=== PATIENT | female | born 1955 | race African-American/Black ===

== ENCOUNTER 2017-08-19 21:43 | Inpatient (IN) | payer SELFPAY ==
[2017-08-19] MEDS ORDERED: Nitroglycerin 2% Ointment 1 INCH/1 GM Packet ONE (22:03)
[2017-08-19] MEDS ORDERED: hydrALAZINE 20 MG/ML VIAL SLOW IVP PRN (23:47)
[2017-08-19] MEDS ORDERED: Milk Of Magnesia 30 ML UDCUP PO PRN (23:49)
[2017-08-20 02:57] VITALS: BMI 30.5
--- NOTE | 2017-08-20 04:50 | HP ---
PRIMARY CARE PHYSICIAN: Alex Francisco M.D. in [place]. PRESENTING COMPLAINT: Double vision and difficult to walk. HISTORY OF PRESENT ILLNESS: Ms. Claude Turcios is a 62-year-old female who has a past medical history of chronic lower back pain, hypertension, and hyperlipidemia. She reports that around 4:00 p.m. yester day, she started having difficulty seeing properly with her eyes straight into the right side. She a lso developed difficulty walking around. She denies any speech difficulty, facial droop or extremity weakness. She has not had similar episodes in the past. She did note presented to the emergency ro yesterday because she attributed her symptoms to being out in the heat and went and tried to cool down. However, due to continued symptoms and moderate difficulty moving around, today she decided to come to the emergency room. There is no history of fever, chills, cough, chest pain, shortness of b reath, palpitations, PND, orthopnea, lower extremity edema. She has no abdominal or urinary symptoms . She went to [facility], where she was found to have a blood pressure of 223/93. She wa s given 1 dose of aspirin and then sent to [facility] for further care. PAST MEDICAL HISTORY: As stated in the HPI. PAST SURGICAL HISTORY: Remote "feminine" surgery about 20 years ago, but does not remember what it w as called. FAMILY HISTORY: Reviewed and noncontributory. SOCIAL HISTORY: She drinks alcohol every week, but denies drug use. She also smokes half a pack a d ay. HOME MEDICATION: Include, amlodipine 10 mg daily and lisinopril 20 mg daily. ALLERGIES: No known drug allergies. CODE STATUS: FULL CODE. REVIEW OF SYSTEMS: All systems reviewed and negative except as stated in HPI. PHYSICAL EXAMINATION: VITAL SIGNS: On arrival, blood pressure was 203/105 with a pulse rate of 59, respiratory rate of 24, oxygen saturation of 99% on room air. GENERAL: Not in acute distress. She is lying comfortably. HEENT: Normocephalic, atraumatic, not pale, anicteric. PERRLA. Moist mucous membranes. NECK: Supple, full range of movement. No JVD. RESPIRATORY: Vesicular breath sounds bilaterally. No wheezes, rales or rhonchi. CARDIOVASCULAR: S1 and S2 only. No murmurs, rubs or gallops. Regular rate and rhythm. ABDOMEN: Soft, nontender, nondistended. Bowel sounds normoactive. MUSCULOSKELETAL: No edema. SKIN: Warm, dry, well-perfused. No rashes or lesions. PSYCHIATRIC: Normal mood and affect. Denies SI or HI. NEUROLOGIC: Strength 4/5 in all extremities. Normal tone and reflexes. Alert and well oriented to time, place and person. She has some right ocular muscle palsy and vertical nystagmus. LABORATORY DATA: CBC was largely unremarkable and CMP as well. Urinalysis was also unremarkable. S he had a brain CT without contrast and did have significant findings, ranging from peripheral hypoden sity along the right superior cerebellum posterior cerebellum suggestive of an old infarction. She a lso had extensive microvascular subcortical and deep white matter changes with associated demineraliz ation of the calvarium with numerous round lytic foci. Recommend correlation for history of myeloma. There is also hypodense foci of the thalami bilaterally, which are new from the comparison examinat ion and her age indeterminate. EKG shows no acute ischemic signs. ASSESSMENT AND PLAN: 1. Ischemic cerebrovascular accident: Patient presents with double vision, difficulty ambulating an d CT brain finding suggesting a new CVA. She has been admitted to the Stroke Unit, will be monitored on telemetry. We will also get a PT/OT evaluation and a bedside swallow evaluation as well. We avi l obtain lipid profile, hemoglobin A1c and TSH. We will allow for permissive hypertension and placed on IV labetalol, hydralazine for diastolic blood pressure greater than 120. She will also be placed on secondary prevention with aspirin and statin. Neurology will be consulted. 2. Hypertensive urgency: This is likely secondary to new cerebrovascular accident. MRI without con trast has been ordered. Further management as above. 3. Hyperlipidemia: We will place on stain. 4. Hypertension: Management as above. 5. Deep venous thrombosis prophylaxis, SCDs. 6. Code status: FULL CODE.
[2017-08-20 05:33] LABS: Anion Gap 13 mmol/L (10-20); BUN (Urea Nitrogen) 9 mg/dL (9.8-20.1); Calc. Creatinine Clearance 108 mL/min (70-130); Calcium 10.1 mg/dL (7.8-10.44); Carbon Dioxide 27 mmol/L (23-31); Cardiac Risk 4.7 (Less than 4.5); Chloride 106 mmol/L (98-107); Cholesterol 173 mg/dl (< 200 Desired); Estimated GFR-MDRD Greater than 90; Glucose 85 mg/dL (80-115); HDL Cholesterol 37 mg/dL (>60 Neg Risk); LDL Cholesterol, Calculated 118 mg/dL; Potassium 3.4 mmol/L (3.5-5.1); Sodium 143 mmol/L (136-145); Triglycerides 88 mg/dL (Less than 150)
[2017-08-20 05:42] LABS: #Lymphocytes 1.3 thou/uL (1.20-3.40); #Monocytes 0.4 thou/uL (0.11-0.59); #Neutrophils 2.2 thou/uL (1.40-6.50); %Basophils 0.6 % (0.0-1.0); %Eosinophils 1.2 % (0.0-10.0); %Lymphocytes 32.3 % (21.0-51.0); %Monocytes 10.8 % (0.0-10.0); Hemoglobin 11.7 g/dL (12.0-16.0); MDiff Complete? YES; Macrocytosis SLIGHT = 6-15 cells (100X) (0-5/hpf); Mean Corpuscular HGB CONC 34.1 g/dL (32.0-36.0); Mean Corpuscular Hemoglobin 37.9 pg (27.0-31.0); PLT Morphology Comment Appears Adequate; Platelet Count 185 thou/uL (130-400)
[2017-08-20] MEDS: Lisinopril 20 MG TAB PO SCH (08:55)
[2017-08-20] MEDS: Amlodipine 10 MG TAB PO SCH (08:55)
[2017-08-20] MEDS: Docusate 100 MG CAP PO SCH ×2 (08:55→22:04)
[2017-08-20] MEDS: Aspirin 325 mg Enteric Coated Tablet PO SCH (08:56)
--- NOTE | 2017-08-20 10:29 | RAD ---
SKELETAL BONE SURVEY: HISTORY: Lytic bony lesions. FINDINGS: Lateral view skull, lateral view cervical spine, AP view of cervical spine, AP and lateral views thor acic and lumbar spine, AP view pelvis, AP both right and left lower extremities and AP view bilateral upper extremities are obtained. Skeletal survey demonstrates numerous lytic lesions too numerous to count in the calvarium. Areas of lucency are also seen in the proximal right and left femur in the diaphysis. Lytic change is also s een in the mid and distal right humerus and mid portion of the left humerus. Findings compatible with numerous osseous metastatic lesions. No definite evidence of high-grade com pression fracture is seen. There does appear to be some height loss in the T12 vertebra, predominant ly centrally. Findings compatible with numerous lytic osseous lesions. POS: [facility]
--- NOTE | 2017-08-20 11:12 | MRI ---
NONCONTRAST ENHANCED MRI IMAGES OF THE BRAIN: HISTORY: Dizziness, right eye amblyopia, blurred vision that started Monday afternoon. FINDINGS: Multiplanar, multisequence noncontrast-enhanced MRI images of brain obtained. Images demonstrate small areas of diffusion restriction seen in the left basal ganglion and left post erior temporal lobe compatible with left small MCA distribution areas of acute stroke. These areas a re associated with areas of T2 signal abnormality. Old areas of signal changes seen in the right and left thalami and the preethi compatible with areas of gliosis from old ischemic events. There is an old right cerebellar area of infarction. Also, there is an approximately 12 mm arachnoid cyst in the left middle cranial fossa. IMPRESSION: 1. Small acute left middle cerebral artery distribution areas of strokes. 2. No evidence of acute intracranial pathology noted otherwise. No evidence of large stroke seen. Older partial areas of strokes also seen. POS: [facility]
[2017-08-20 11:47] LABS: Hemoglobin 11.9 g/dL (12.0-16.0); Mean Corpuscular HGB CONC 34.6 g/dL (32.0-36.0); Mean Corpuscular Hemoglobin 38.3 pg (27.0-31.0); Mean Platelet Volume 6.9 fL (7.4-10.4); Platelet Count 178 thou/uL (130-400); RBC Distribution Width 11.9 % (11.5-14.5)
[2017-08-20 12:09] LABS: Band 3 % (5-11); Eosinophils 1 % (0-10); Lymphocytes 34 % (21-51); MDiff Complete? YES; Macrocytosis SLIGHT = 6-15 cells (100X) (0-5/hpf); Monocytes 9 % (0-10); Neutrophil 53 % (42-75); Nucleated RBC 1 % (0); PLT Morphology Comment Appears Adequate; Polychromasia SLIGHT = 2-3 cells (100X) (0-2/hpf)
--- NOTE | 2017-08-20 12:11 | PDOC.PN ---
- Subjective Encounter Start Date: 08/20/17 Encounter Start Time: 07:40 Pt seen for followup re: diplopia. Denies chest pain or shortness of breath. - Objective Resuscitation Status: Resuscitation Status FULL:Full Resuscitation MAR Reviewed: Yes Vital Signs & Weight: Vital Signs (12 hours) Temp Pulse Resp BP Pulse Ox 08/20/17 11:44 98.4 F 61 14 212/112 H 97 08/20/17 08:55 60 08/20/17 08:00 98.5 F 60 16 172/93 H 97 08/20/17 04:10 98.1 F 60 20 100 08/20/17 02:57 98.1 F 60 20 183/91 H 100 Weight Weight 201 lb Result Diagrams: 08/20/17 11:32 08/20/17 04:42 EKG Reviewed by me: Yes (Tele: NSR) Phys Exam - Physical Examination Obese HEENT: moist MMs, sclera anicteric, oral pharynx no lesions, 2+ tonsils proptosis balbir Neck: no nodes, no JVD, supple, full ROM Respiratory: no wheezing, no rales, no rhonchi, clear to auscultation bilateral Cardiovascular: RRR, no rub S1, S2 Gastrointestinal: soft, non-tender, no distention, positive bowel sounds Neurological: moves all 4 limbs R eye ophthalmoplegia Psychiatric: normal affect, A&O x 3 Dx/Plan (1) Ischemic cerebrovascular accident (CVA) Code(s): I63.9 - CEREBRAL INFARCTION, UNSPECIFIED Status: Acute Comment: await further workup including MRI brain, echo and carotid dopplers. (2) Osteolytic lesion Code(s): M89.50 - OSTEOLYSIS, UNSPECIFIED SITE Status: Acute Comment: check SPEP, UPEP, skeletal survery and mammogram. (3) Hypertensive urgency Code(s): I16.0 - HYPERTENSIVE URGENCY Status: Acute (4) Tobacco abuse Code(s): Z72.0 - TOBACCO USE Status: Chronic Comment: counseled re: tobacco cessation, start nicotine replacement therapy - Plan * . Review of Systems - Review of Systems Constitutional: negative: fever, chills, sweats, weakness, malaise Eyes: Vision Change. negative: Pain, Conjunctivae Inflammation, Eyelid Inflammation, Redness Respiratory: negative: Cough, Shortness of Breath, SOB with Excertion, Pleuritic Pain, Wheezing Cardiovascular: negative: chest pain, palpitations, orthopnea, paroxysmal nocturnal dyspnea, edema, light headedness Gastrointestinal: negative: Nausea, Vomiting, Abdominal Pain, Diarrhea, Constipation, Melena, Hematochezia Neurological: Other (Diplopia). negative: Weakness, Numbness, Incoordination, Change in Speech, Confusion, Seizures - Medications/Allergies Allergies/Adverse Reactions: Allergies Allergy/AdvReac Type Severity Reaction Status Date / Time No Known Drug Allergies Allergy Unverified 08/19/17 23:57 Medications: Current Medications Acetaminophen (Tylenol) 650 mg PO Q4H PRN PRN Reason: Headache/Fever or Pain Amlodipine Besylate (Norvasc) 10 mg PO DAILY [facility] Last Admin: 08/20/17 08:55 Dose: 10 mg Aspirin (Ecotrin) 325 mg PO DAILY [facility] Last Admin: 08/20/17 08:56 Dose: 325 mg Atorvastatin Calcium (Lipitor) 40 mg PO [facility] Docusate Sodium (Colace) 100 mg PO BID [facility] Last Admin: 08/20/17 08:55 Dose: 100 mg Hydralazine HCl (Apresoline) 10 mg SLOW IVP Q4H PRN PRN Reason: BP > 220/110 Lisinopril (Zestril) 20 mg PO DAILY [facility] Last Admin: 08/20/17 08:55 Dose: 20 mg Magnesium Hydroxide (Milk Of Magnesium) 30 ml PO DAILYPRN PRN PRN Reason: Constipation Simvastatin (Zocor) 10 mg PO HS [facility]
[2017-08-20 12:26] LABS: ALT (SGPT) 8 U/L (8-55); AST (SGOT) 12 U/L (5-34); Albumin 4.2 g/dL (3.4-4.8); Alkaline Phosphatase 61 U/L (40-150); Bilirubin, Direct 0.3 mg/dL (0.1-0.3); Bilirubin, Total 0.7 mg/dL (0.2-1.2); Protein, Total 6.5 g/dL (6.0-8.3)
--- NOTE | 2017-08-20 13:39 | CON ---
DATE OF CONSULTATION: 08/20/2017 CONSULTING PHYSICIAN: Hospitalist Service. IMPRESSION: 1. Probable brainstem stroke. 2. Hypertension. 3. Hyperlipidemia. PLAN: 1. MRI of the brain. 2. Continue aspirin. 3. Continue statin. 4. Carotid ultrasound. HISTORY OF PRESENT ILLNESS: Ms. Turcios is a 62-year-old black female with a past history of hypertens ion and hyperlipidemia. She developed double vision, dizziness, oscillopsia, headache and nausea yes terday, came into the emergency room for evaluation. Her CT scan of the brain showed some fairly ext ensive small vessel ischemic changes including right cerebellar infarct. She was not taking aspirin on a daily basis. Her symptoms are a bit better today. In regard to the pain and nausea, she is sti ll having double vision. PAST HISTORY: As listed above. ALLERGIES: None. SOCIAL HISTORY: She is . No tobacco use. FAMILY HISTORY: Noncontributory. MEDICATION LIST: Reviewed. REVIEW OF SYSTEMS: No complaints of difficulty swallowing, chest pain, shortness of breath, laterali zed weakness or numbness of the extremities. PHYSICAL EXAMINATION: GENERAL: She is a well-nourished middle-aged woman in no acute distress. VITAL SIGNS: Blood pressure 172/93, pulse 60, respirations 16, and temperature 98.5. HEENT: Pupils are equal and reactive. Conjunctivae clear. Oropharynx clear. NECK: No lymphadenopathy. EXTREMITIES: No cyanosis. NEUROLOGIC: She is alert and appropriate. Her speech is fluent and clear. Cranial nerve exam shows partial right third nerve palsy as well as down beating nystagmus. Face is symmetric. Palate eleva juan m in a midline. Tongue protruded to the center. Hand [employer] professional [employer] strength is symmetric. There was no fi x or drift. Sensation was equal to touch. Gait was not tested, but reportedly she was able to walk to the bathroom independently. LABORATORY STUDIES: Serum chemistry and CBC were unremarkable. Her lipid profile shows a ratio of [address] images were reviewed. SUMMARY: Middle-aged woman with history of hypertension and hyperlipidemia, who presents with double vision and down beating nystagmus suggestive of brainstem injury, suspect this is due to further sma ll vessel ischemic changes. Agree with current care.
--- NOTE | 2017-08-20 14:56 | ULT ---
CAROTID DUPLEX SONOGRMA: HISTORY: Vascular disease. CVA. FINDINGS: RIGHT: No significant plaque. Color and spectral Doppler evaluation, peak systolic velocity of 43 cm/s, and IC to CC ratio of 0.7 suggests no hemodynamically significant stenosis within the extracranial right ICA. Antegrade flow within the vertebral artery. LEFT: No plaque. Color and spectral Doppler evaluation, peak systolic velocity of 116 cm/s, and IC to CC r atio of 1.8 suggests no hemodynamically significant stenosis within the extracranial left ICA. Anteg rade flow within the vertebral artery. IMPRESSION: No visible plaque. No sonographic evidence of significant extracranial internal carotid artery steno sis. POS: [facility]
[2017-08-20] MEDS: hydrALAZINE 20 MG/ML VIAL SLOW IVP PRN (16:12)
[2017-08-20] MEDS: Nicotine 14 MG PATCH TD SCH (16:16)
[2017-08-20] MEDS: Acetaminophen 325 MG TAB PO PRN (17:34)
[2017-08-20] MEDS ORDERED: Simvastatin 5 MG TAB PO SCH (21:00)
[2017-08-20] MEDS: Atorvastatin Calcium 40 MG TAB PO SCH (22:05)
[2017-08-21] MEDS: hydrALAZINE 20 MG/ML VIAL SLOW IVP PRN (00:11)
[2017-08-21 05:03] LABS: #Lymphocytes 0.9 thou/uL (1.20-3.40); #Monocytes 0.6 thou/uL (0.11-0.59); #Neutrophils 3.2 thou/uL (1.40-6.50); %Basophils 0.4 % (0.0-1.0); %Eosinophils 0.7 % (0.0-10.0); %Lymphocytes 19.4 % (21.0-51.0); %Monocytes 11.6 % (0.0-10.0); %Neutrophils 67.9 % (42.0-75.0); Hemoglobin 12.2 g/dL (12.0-16.0); Mean Corpuscular HGB CONC 34.1 g/dL (32.0-36.0); Mean Corpuscular Hemoglobin 37.6 pg (27.0-31.0); Platelet Count 197 thou/uL (130-400); Red Blood Cell (RBC) Count 3.23 mill/uL (4.20-5.40); White Blood Cell (WBC) Count 4.8 thou/uL (4.8-10.8)
[2017-08-21 05:07] LABS: Anion Gap 16 mmol/L (10-20); BUN (Urea Nitrogen) 9 mg/dL (9.8-20.1); Calc. Creatinine Clearance 115 mL/min (70-130); Calcium 10.6 mg/dL (7.8-10.44); Carbon Dioxide 24 mmol/L (23-31); Cardiac Risk 4.4 (Less than 4.5); Chloride 108 mmol/L (98-107); Cholesterol 185 mg/dl (< 200 Desired); Estimated GFR-MDRD Greater than 90; Glucose 98 mg/dL (80-115); HDL Cholesterol 42 mg/dL (>60 Neg Risk); LDL Cholesterol, Calculated 128 mg/dL; Potassium 3.6 mmol/L (3.5-5.1); Sodium 144 mmol/L (136-145); Triglycerides 77 mg/dL (Less than 150)
[2017-08-21] MEDS: Amlodipine 10 MG TAB PO SCH (08:46)
[2017-08-21] MEDS: Aspirin 325 mg Enteric Coated Tablet PO SCH (08:46)
[2017-08-21] MEDS: Lisinopril 20 MG TAB PO SCH (08:46)
[2017-08-21] MEDS: Docusate 100 MG CAP PO SCH ×2 (08:47→20:18)
[2017-08-21] MEDS: Nicotine 14 MG PATCH TD SCH (08:47)
--- NOTE | 2017-08-21 10:41 | PDOC.PN ---
- Subjective Encounter Start Date: 08/21/17 Encounter Start Time: 07:00 Pt seen for followup re: ischemic CVA. Denies chest pain, shortness of breath, fevers or chills. - Objective Resuscitation Status: Resuscitation Status FULL:Full Resuscitation MAR Reviewed: Yes Vital Signs & Weight: Vital Signs (12 hours) Temp Pulse Resp BP BP Pulse Ox 08/21/17 08:46 67 199/108 H 08/21/17 08:00 97.6 F 67 16 199/108 H 97 08/21/17 04:00 98.5 F 73 18 157/84 H 96 08/21/17 00:11 65 08/21/17 00:00 98 F 78 18 176/89 H 98 Weight Admit Weight 201 lb Weight 201 lb I&O: 08/20/17 08/21/17 08/22/17 06:59 06:59 06:59 Intake Total 240 Balance 240 Result Diagrams: 08/21/17 04:32 08/21/17 04:32 Additional Labs: Labs reviewed by me EKG Reviewed by me: Yes (Tele: NSR) Phys Exam - Physical Examination Obese HEENT: moist MMs, sclera anicteric, oral pharynx no lesions proptosis Neck: no nodes, no JVD, supple, full ROM Respiratory: no wheezing, no rales, no rhonchi, clear to auscultation bilateral Cardiovascular: RRR, no rub S1, S2 Gastrointestinal: soft, non-tender, no distention, positive bowel sounds Musculoskeletal: pulses present Neurological: moves all 4 limbs R 3rd CN palsy Psychiatric: normal affect Dx/Plan (1) Ischemic cerebrovascular accident (CVA) Code(s): I63.9 - CEREBRAL INFARCTION, UNSPECIFIED Status: Acute Comment: MRI brain showing ischemic CVA, continue aspirin and statin (2) Osteolytic lesion Code(s): M89.50 - OSTEOLYSIS, UNSPECIFIED SITE Status: Acute Comment: await SPEP, UPEP and mammogram. (3) Hypertensive urgency Code(s): I16.0 - HYPERTENSIVE URGENCY Status: Acute Comment: add scheduled hydralazine (4) Tobacco abuse Code(s): Z72.0 - TOBACCO USE Status: Chronic Comment: continue nicotine replacement therapy - Plan * . Review of Systems - Review of Systems Constitutional: negative: fever, chills, sweats, weakness, malaise Respiratory: negative: Cough, Shortness of Breath, SOB with Excertion, Pleuritic Pain, Wheezing Cardiovascular: negative: chest pain, palpitations, orthopnea, paroxysmal nocturnal dyspnea, edema, light headedness Gastrointestinal: negative: Nausea, Vomiting, Abdominal Pain, Diarrhea, Constipation, Melena, Hematochezia Genitourinary: negative: Dysuria, Frequency, Incontinence, Hematuria, Retention Neurological: Other. negative: Weakness, Numbness, Incoordination, Change in Speech, Confusion, Seizures (Diplopia) - Medications/Allergies Allergies/Adverse Reactions: Allergies Allergy/AdvReac Type Severity Reaction Status Date / Time No Known Drug Allergies Allergy Verified 08/20/17 22:00 Medications: Current Medications Acetaminophen (Tylenol) 650 mg PO Q4H PRN PRN Reason: Headache/Fever or Pain Last Admin: 08/20/17 17:34 Dose: 650 mg Amlodipine Besylate (Norvasc) 10 mg PO DAILY [facility] Last Admin: 08/21/17 08:46 Dose: 10 mg Aspirin (Ecotrin) 325 mg PO DAILY [facility] Last Admin: 08/21/17 08:46 Dose: 325 mg Atorvastatin Calcium (Lipitor) 40 mg PO HS [facility] Last Admin: 08/20/17 22:05 Dose: 40 mg Docusate Sodium (Colace) 100 mg PO BID [facility] Last Admin: 08/21/17 08:47 Dose: Not Given Hydralazine HCl (Apresoline) 10 mg SLOW IVP Q6H PRN PRN Reason: SBP Greater Than 170 Last Admin: 08/21/17 00:11 Dose: 10 mg Lisinopril (Zestril) 20 mg PO DAILY [facility] Last Admin: 08/21/17 08:46 Dose: 20 mg Magnesium Hydroxide (Milk Of Magnesium) 30 ml PO DAILYPRN PRN PRN Reason: Constipation Nicotine (Nicoderm Patch) 14 mg TD Q24HR [facility] Last Admin: 08/21/17 08:47 Dose: Not Given
[2017-08-21] MEDS ORDERED: ISOVUE-370 76%-LOCM 1 ML ONE (11:00)
[2017-08-21] MEDS: Acetaminophen 325 MG TAB PO PRN (13:34)
[2017-08-21] MEDS: hydrALAZINE 25 MG TAB PO SCH ×2 (14:36→20:18)
--- NOTE | 2017-08-21 16:08 | PDOC.EVN ---
Event Note - Event Note Event Note: Canceled mammogram since it cannot be done as inpatient. Ordered CT chest/abdo/ pelvis to r/o occult malignancy.
--- NOTE | 2017-08-21 18:38 | CT ---
CT CHEST AND ABDOMEN AND PELVIS WITH CONTRAST: HISTORY: Lower abdominal pain. Assess for occult malignancy. TECHNIQUE: Multiple axial tomograms obtained through the chest and abdomen and pelvis with IV enhancement. Oral contrast was given. FINDINGS: CHEST: The lung ahmadi appear clear. The mediastinum is unremarkable. There are two soft tissue nodular masses in the medial right breast, one measuring 1.7 cm and the adj acent one measuring 1.1 cm. These will need further evaluation with breast mammogram and ultrasound. There are scattered smaller nodules seen in both breasts, which are subcentimeter and nonspecific, so me of which in the left breast are associated with calcification. No evidence of axillary adenopathy . ABDOMEN AND PELVIS: The liver, spleen, and pancreas are unremarkable. The stomach and duodenum are unremarkable. The adrenal glands are normal. The kidneys are unremarkable. The urinary bladder is contracted and not well evaluated. Small bowel loops show nonspecific distention without evidence of dilatation or obstruction. The amrit endix is identified and is unremarkable. The colon is filled with stool and gas. Colonic mucosal le sions are not excluded by CT. There is diverticulosis of the left colon. The aorta is of normal [place] iber with atherosclerotic changes. Images through the pelvis reveal an enlarged, very heterogeneous uterus. There is a large mass arisi ng from the uterine fundus, to the left, extending up into the mid left abdomen, measuring up to 12 c m. There is another circumscribed low density lesion in the uterine fundus, midline and to the right , measuring 6 cm. There is a third circumscribed, low density mass in the lower uterine segment, to the right, measuring 3.5 cm. There are other areas of heterogeneity. These findings suggest a multi fibroid uterus with a large heterogeneous fibroid arising from the fundus, on the left. The adnexa a nd ovaries cannot be adequately evaluated. MRI of pelvis would be of benefit to further characterize the uterus and adnexa. Osseous structures are unremarkable. IMPRESSION: 1. There are two nodules of concern in the medial right breast. There are smaller nodularities in b oth breasts. Further evaluation with mammogram and breast ultrasound is recommended. CT chest is ot herwise unremarkable. 2. Enlarged, heterogeneous uterus with several masses involving the uterine myometrium, consistent w ith large leiomyoma. The largest projects to the left, into the mid abdomen. Consider further evalu ation with MRI pelvis. POS: [facility]
[2017-08-21] MEDS: Atorvastatin Calcium 40 MG TAB PO SCH (20:18)
[2017-08-22] MEDS: hydrALAZINE 25 MG TAB PO SCH ×3 (09:01→21:45)
[2017-08-22] MEDS: Amlodipine 10 MG TAB PO SCH (09:03)
[2017-08-22] MEDS: Lisinopril 20 MG TAB PO SCH (09:03)
[2017-08-22] MEDS: Acetaminophen 325 MG TAB PO PRN ×2 (09:03→21:45)
[2017-08-22] MEDS: Docusate 100 MG CAP PO SCH ×2 (09:03→21:45)
[2017-08-22] MEDS: Aspirin 325 mg Enteric Coated Tablet PO SCH (09:03)
[2017-08-22] MEDS: Nicotine 14 MG PATCH TD SCH (09:04)
[2017-08-22 14:22] LABS: Albumin-Ur 36.7 % (.); Beta-Ur 2.4 % (.); Gamma-Ur 24.8 % (.); M-Spike,% 17.9 % (Not Observed); Protein, Urine 6.9 mg/dL (Not Estab.)
[2017-08-22 14:22] LABS: A/G Ratio 1.4 (0.7-1.7); Albumin 3.6 g/dL (2.9-4.4); Alpha 1 0.3 g/dL (0.0-0.4); Alpha 2 0.7 g/dL (0.4-1.0); Beta 0.9 g/dL (0.7-1.3); Gamma 0.6 g/dL (0.4-1.8); Globulin, Total 2.5 g/dL (2.2-3.9); M-Spike Not Observed g/dL (Not Observed)
--- NOTE | 2017-08-22 20:03 | PDOC.PN ---
- Subjective Encounter Start Date: 08/22/17 Encounter Start Time: 19:40 Subjective: f/u s/p ischemic CVA L MCA distribution. Also with numerous lytic -: bone lesions on bone survey and R medial breast masses. No new -: complaints, wearing R eye patch. - Objective Resuscitation Status: Resuscitation Status FULL:Full Resuscitation MAR Reviewed: Yes Vital Signs & Weight: Vital Signs (12 hours) Temp Pulse Pulse Pulse Resp BP BP 08/22/17 15:17 97.8 F 67 15 08/22/17 14:55 65 129/70 08/22/17 11:21 98.0 F 77 15 08/22/17 10:30 77 76 140/90 08/22/17 09:03 70 170/82 H 08/22/17 09:01 70 170/82 H BP BP Pulse Ox 08/22/17 15:17 148/93 H 98 08/22/17 14:55 08/22/17 11:21 133/89 95 08/22/17 10:30 155/88 H 08/22/17 09:03 08/22/17 09:01 Weight Admit Weight 201 lb Weight 201 lb I&O: 08/21/17 08/22/17 08/23/17 06:59 06:59 06:59 Intake Total 2360 700 Balance 2360 700 Result Diagrams: 08/21/17 04:32 08/21/17 04:32 Additional Labs: Laboratory Tests 08/20/17 08/20/17 04:42 12:05 TSH 3rd Generation 2.0399 U PEP M-Mode 17.9 H Radiology Reviewed by me: Yes (CT chest/abd/pel - medial R breast mass x 2) EKG Reviewed by me: Yes (Tele - SR) Phys Exam - Physical Examination Constitutional: NAD R eye patch in place HEENT: sclera anicteric, oral pharynx no lesions Neck: no nodes, no JVD, supple, full ROM Respiratory: no wheezing, no rales, no rhonchi, clear to auscultation bilateral Cardiovascular: RRR, no significant murmur, no rub, gallop Gastrointestinal: soft, non-tender, no distention, positive bowel sounds Musculoskeletal: no edema, pulses present Neurological: non-focal, normal sensation, moves all 4 limbs Psychiatric: normal affect, A&O x 3 Skin: no rash, normal turgor, cap refill <2 seconds Dx/Plan (1) Ischemic cerebrovascular accident (CVA) Code(s): I63.9 - CEREBRAL INFARCTION, UNSPECIFIED Status: Acute Comment: MRI brain showing ischemic CVA, continue aspirin and statin, general stroke protocol (2) Mass of right breast Code(s): N63.10 - UNSPECIFIED LUMP IN THE RIGHT BREAST, UNSPECIFIED QUADRANT Status: Acute Comment: 2 separate nodular masses of R breast, biopsy needed for definitive dx (3) Osteolytic lesion Code(s): M89.50 - OSTEOLYSIS, UNSPECIFIED SITE Status: Acute Comment: CT showing 2 R breast masses, see above, consult Oncology service for evaluation (4) Tobacco abuse Code(s): Z72.0 - TOBACCO USE Status: Chronic Comment: continue nicotine replacement therapy - Plan plan discussed w/ family, social services aide, out of bed/ambulate, DVT proph w/SCDs Stable overall -: Continue ASA 325mg daily -: Continue Lipitor 40mg HS -: Consult Medical Oncology service -: CM for oupt coordination for HH * .
[2017-08-22] MEDS: Atorvastatin Calcium 40 MG TAB PO SCH (21:45)
[2017-08-23] MEDS: Amlodipine 10 MG TAB PO SCH (09:40)
[2017-08-23] MEDS: Lisinopril 20 MG TAB PO SCH (09:40)
[2017-08-23] MEDS: Aspirin 325 mg Enteric Coated Tablet PO SCH (09:40)
[2017-08-23] MEDS: Acetaminophen 325 MG TAB PO PRN ×3 (09:40→22:02)
[2017-08-23] MEDS: hydrALAZINE 25 MG TAB PO SCH ×3 (09:40→20:40)
[2017-08-23] MEDS: Docusate 100 MG CAP PO SCH ×2 (09:41→20:40)
--- NOTE | 2017-08-23 16:25 | PDOC.PN ---
- Subjective Encounter Start Date: 08/23/17 Encounter Start Time: 16:05 Subjective: f/u for ischemic CVA of L thalamus MCA distribution. Also with multiple -: lytic lesions of scalp and femur/humerus and 2 right breast masses. -: No new complaints currently. - Objective Resuscitation Status: Resuscitation Status FULL:Full Resuscitation MAR Reviewed: Yes Vital Signs & Weight: Vital Signs (12 hours) Temp Pulse Pulse Pulse Resp BP BP 08/23/17 15:43 98.1 F 76 16 08/23/17 11:56 99.1 F 80 16 08/23/17 09:49 67 68 178/104 H 148/92 H 08/23/17 09:40 68 08/23/17 08:30 98.4 F 68 16 08/23/17 07:55 98.4 F 68 16 BP Pulse Ox 08/23/17 15:43 121/71 98 08/23/17 11:56 143/66 H 95 08/23/17 09:49 08/23/17 09:40 08/23/17 08:30 96 08/23/17 07:55 135/72 96 Weight Admit Weight 201 lb Weight 201 lb I&O: 08/22/17 08/23/17 08/24/17 06:59 06:59 06:59 Intake Total 2360 1050 Output Total 2 Balance 2360 1048 Result Diagrams: 08/21/17 04:32 08/21/17 04:32 EKG Reviewed by me: Yes (Tele - SR) Phys Exam - Physical Examination Constitutional: NAD R eye patch in place HEENT: PERRLA, sclera anicteric, oral pharynx no lesions Neck: no nodes, no JVD, supple, full ROM Respiratory: no wheezing, no rales, no rhonchi, clear to auscultation bilateral S1, S2 Cardiovascular: RRR, no significant murmur, no rub, gallop Gastrointestinal: soft, non-tender, no distention, positive bowel sounds Musculoskeletal: no edema, pulses present Neurological: normal sensation, moves all 4 limbs Psychiatric: normal affect, A&O x 3 Skin: no rash, normal turgor, cap refill <2 seconds Dx/Plan (1) Ischemic cerebrovascular accident (CVA) Code(s): I63.9 - CEREBRAL INFARCTION, UNSPECIFIED Status: Acute Comment: MRI brain showing ischemic CVA, continue aspirin and statin, general stroke protocol (2) Mass of right breast Code(s): N63.10 - UNSPECIFIED LUMP IN THE RIGHT BREAST, UNSPECIFIED QUADRANT Status: Acute Comment: 2 separate nodular masses of R breast, biopsy needed for definitive dx, General surgery consult (3) Osteolytic lesion Code(s): M89.50 - OSTEOLYSIS, UNSPECIFIED SITE Status: Acute Comment: CT showing 2 R breast masses, see above, consult Oncology service for evaluation, may need to consider bone marrow biopsy in addition to R breast bx (4) Tobacco abuse Code(s): Z72.0 - TOBACCO USE Status: Chronic Comment: continue nicotine replacement therapy - Plan plan discussed w/ family, PT/OT, clinical social work therapist, DVT proph w/SCDs Stable overall -: Continue ASA 325mg daily -: Continue Lipitor 40mg HS -: Oncology assistance appreciated -: Consider Gen Surgery consult for tissue bx * .
[2017-08-23] MEDS: Nicotine 14 MG PATCH TD SCH (17:22)
[2017-08-23] MEDS: Atorvastatin Calcium 40 MG TAB PO SCH (20:40)
--- NOTE | 2017-08-24 00:05 | CON ---
DATE OF CONSULTATION: 08/23/2017 REASON FOR CONSULTATION: Lytic lesions and breast mass. HISTORY OF PRESENT ILLNESS: Ms. Turcios is a 62-year-old -[place] female, who on Monday bega n to have blurred vision and difficulty walking. She presented to the emergency room for evaluation. A brain CT shows microvascular subcortical and white matter changes. There were lytic lesions of t he calvarium. There were a hypodensity along the right superior cerebellum, posterior cerebellum sug gestive of an old infarct. She was transferred to this facility and admitted for further evaluation. She had a brain MRI performed, which showed a small acute left middle cerebral artery distribution area for stroke. She has older areas of stroke noted. 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 There were areas of lucency seen in the proximal right and left femur. There were lytic changes in the mid and distal right humerus and mid portion of the left humerus. She had a serum protein electrophoresis, which was negative. She also had a urine estrellita ctrophoresis and quantitative immunofixation, which were negative. She had a chest, abdomen, and pel vis CT, which showed 2 nodules in the medial right breast. There was also a heterogeneous uterus wit h several masses consistent with leiomyoma. We were asked to see the patient to assist with further diagnosis. The patient states she has been in her usual state of health until last week when she had the blurred vision. She has had this chronic back pain for several months. She denies any hemoptys is, hematochezia, or melena. No colonoscopy or mammogram. PAST MEDICAL HISTORY: 1. Hypertension. 2. High cholesterol. 3. Chronic back pain. PAST SURGICAL HISTORY: None. ALLERGIES: No known drug allergies. HOME MEDICATIONS: 1. Amlodipine 10 mg daily. 2. Zestril 20 mg daily. 3. Lovastatin 20 mg daily. FAMILY HISTORY: No known history of breast or uterine cancer or multiple myeloma. SOCIAL HISTORY: , [id number]-[id number] history of smoking. Drinks beer 1-2 beers daily. No illicit drug use. REVIEW OF SYSTEMS: Twelve-point review of systems is negative except for noted in HPI. PHYSICAL EXAMINATION: VITAL SIGNS: Temperature is 98.1, pulse is 76, respiratory rate 16, BP is 121/71. She is 98% on emi m air. GENERAL: This is an obese -[place] female in no acute distress. HEENT: Normocephalic, atraumatic. Pupils equal and reactive to light. She has got poor dentition. NECK: Supple. CARDIOVASCULAR: Regular rate and rhythm. LUNGS: Clear to auscultation. ABDOMEN: Soft, nontender, bowel sounds are positive. There is no hepatosplenomegaly. EXTREMITIES: No clubbing, cyanosis or edema. SKIN: No rash. NEUROLOGICAL: Positive for nystagmus. She has a right eye patch. BREASTS: She has old scars from prior skin rash or burn to her both breasts. On the right breast, t here is palpable and movable nodules. No peau d'orange changes or nipple inversion. PERTINENT LABORATORY DATA AND X-RAYS: Current WBCs are 4.8, hemoglobin 12.2, hematocrit 35.6, platel et count is 197,000. She has got 68% neutrophils, 20% lymphocytes, 1% monocytes. Sodium is 144, pot assium 3.6, chloride 108, CO2 is 24, BUN is 9, creatinine 0.71, calcium is 10.6, total bilirubin is 0 .7, AST is 12, ALT is 8, alkaline phosphatase is 61. Serum total protein 6.5, albumin 4.2, globulin 2.5. Her SPEP was negative with no M spike observed. Urine protein electrophoresis showed a mildly elevated M spike of 17.9. Her immunofixation showed a normal protein and albumin. Radiology per HPI . IMPRESSION: 1. Lytic lesions. 2. Right breast nodules. 3. A large uterine mass consistent with leiomyoma. DISCUSSION: Case was discussed with Dr. Virk. We will perform free light chains on the urine. She will need diagnostic breast mammogram. Further treatment will be based on results of these findi ngs, Thank you for the consult. We will follow her closely.
[2017-08-24] MEDS: Aspirin 325 mg Enteric Coated Tablet PO SCH (09:06)
[2017-08-24] MEDS: hydrALAZINE 25 MG TAB PO SCH ×3 (09:06→21:09)
[2017-08-24] MEDS: Amlodipine 10 MG TAB PO SCH (09:06)
[2017-08-24] MEDS: Docusate 100 MG CAP PO SCH ×2 (09:06→21:09)
[2017-08-24] MEDS: Lisinopril 20 MG TAB PO SCH (09:07)
[2017-08-24] MEDS: Acetaminophen 325 MG TAB PO PRN ×2 (09:11→16:33)
[2017-08-24] MEDS ORDERED: Cyclobenzaprine 10 MG TAB PO SCH (12:00)
[2017-08-24 12:30] LABS: INR-International Normal Ratio 1.1; PTT 26.1 SEC (22.9-36.1); Prothrombin Time 14.4 SEC (12.0-14.7)
--- NOTE | 2017-08-24 16:11 | CT ---
CT GUIDED BONE MARROW ASPIRATION/BIOPSY: 08/24/17 HISTORY: Myelomatous disease. FINDINGS: After explaining the procedure and answering all questions, CT imaging of the pelvis was performed wi th patient prone. A right posterior approach to the iliac bone was planned. Sterile technique, buffer ed local anesthesia, CT guidance, and a right posterior approach were used to carefully advance a 12 gauge trocar needle to the posterior cortex of the iliac bone. Bone marrow aspirate was obtained and submitted to pathology for evaluation. Core specimen was then obtained and submitted to pathology. Ne edle was removed. No evidence of complication. Patient tolerated the procedure well and was returned in unchanged condition. IMPRESSION: Technically successful CT guided aspiration biopsy bone marrow. Pathology pending. POS: [facility]
[2017-08-24] MEDS: Nicotine 14 MG PATCH TD SCH (16:32)
--- NOTE | 2017-08-24 19:05 | PDOC.PN ---
- Subjective Encounter Start Date: 08/24/17 Encounter Start Time: 18:40 Subjective: f/u for osteolytic lesions and R breast masses concerning for malignant -: process. Bone marrow bx performed today with pathology pending. -: Back pain improved with Flexeril. - Objective Resuscitation Status: Resuscitation Status FULL:Full Resuscitation MAR Reviewed: Yes Vital Signs & Weight: Vital Signs (12 hours) Temp Pulse Pulse Pulse Resp BP BP 08/24/17 16:32 81 08/24/17 15:39 98.4 F 81 16 08/24/17 11:41 98 F 74 20 08/24/17 11:02 76 77 124/80 08/24/17 09:07 142/74 H 08/24/17 09:06 68 08/24/17 08:10 98.3 F 81 16 08/24/17 07:40 98.3 F 68 16 BP BP Pulse Ox 08/24/17 16:32 08/24/17 15:39 126/76 94 L 08/24/17 11:41 131/78 96 08/24/17 11:02 152/86 H 08/24/17 09:07 08/24/17 09:06 08/24/17 08:10 94 L 08/24/17 07:40 110/63 95 Weight Admit Weight 201 lb Weight 201 lb I&O: 08/23/17 08/24/17 08/25/17 06:59 06:59 06:59 Intake Total 1050 1240 Output Total 2 Balance 1048 1240 Result Diagrams: 08/21/17 04:32 08/21/17 04:32 EKG Reviewed by me: Yes (Tele - SR) Phys Exam - Physical Examination Constitutional: NAD alert, responsive + nystagmus bilat HEENT: PERRLA Neck: no nodes, no JVD, supple, full ROM Respiratory: no wheezing, no rales, no rhonchi, clear to auscultation bilateral S1, S2 Cardiovascular: RRR, no significant murmur, no rub, gallop Gastrointestinal: soft, non-tender, no distention, positive bowel sounds Musculoskeletal: no edema, pulses present + nystagmus Neurological: normal sensation, moves all 4 limbs Psychiatric: normal affect, A&O x 3 Skin: no rash, normal turgor, cap refill <2 seconds Dx/Plan (1) Ischemic cerebrovascular accident (CVA) Code(s): I63.9 - CEREBRAL INFARCTION, UNSPECIFIED Status: Acute Comment: MRI brain showing ischemic CVA, continue aspirin and statin, general stroke protocol (2) Mass of right breast Code(s): N63.10 - UNSPECIFIED LUMP IN THE RIGHT BREAST, UNSPECIFIED QUADRANT Status: Acute Comment: 2 separate nodular masses of R breast, biopsy needed for definitive dx, diagnostic mammography likely as outpt (3) Osteolytic lesion Code(s): M89.50 - OSTEOLYSIS, UNSPECIFIED SITE Status: Acute Comment: CT showing 2 R breast masses, see above, consult Oncology service for evaluation, bone marrow biopsy completed with pathology pending (4) Tobacco abuse Code(s): Z72.0 - TOBACCO USE Status: Chronic Comment: continue nicotine replacement therapy - Plan plan discussed w/ family, PT/OT, social work msw, out of bed/ambulate, DVT proph w/SCDs Stable overall -: Continue Flexeril 10mg BID prn -: Continue ASA daily -: General stroke protocol -: OOB/ambulate with assist * Likely home in am
[2017-08-24] MEDS: Atorvastatin Calcium 40 MG TAB PO SCH (21:10)
[2017-08-24] MEDS: Cyclobenzaprine 10 MG TAB PO SCH (21:10)
[2017-08-25] MEDS: Cyclobenzaprine 10 MG TAB PO SCH (09:04)
[2017-08-25] MEDS: Amlodipine 10 MG TAB PO SCH (09:04)
[2017-08-25] MEDS: hydrALAZINE 25 MG TAB PO SCH (09:05)
[2017-08-25] MEDS: Lisinopril 20 MG TAB PO SCH (09:05)
[2017-08-25] MEDS: Aspirin 325 mg Enteric Coated Tablet PO SCH (09:05)
[2017-08-25] MEDS: Docusate 100 MG CAP PO SCH (09:06)
--- NOTE | 2017-08-25 11:49 | DIS ---
DATE OF ADMISSION: 08/19/2017 DATE OF DISCHARGE: 08/25/2017 DISCHARGE DIAGNOSES: 1. Ischemic cerebrovascular accident of the left middle cerebral artery distribution. 2. 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 3. Right breast mass x2. 4. Tobacco abuse. 5. Hypertension. 6. Hyperlipidemia. CONSULTATIONS: 1. Medical Oncology Service. 2. Dr. Chapa with Neurology Service. PERTINENT LABORATORY AND X-RAY FINDINGS: Basic metabolic profile within normal limits. M-spike not observed. Total cholesterol 185, triglycerides 77, HDL 42, LDL 128. TSH 2.04. CBC showed a white b lood cell count ranging between 4.0-5.0, hemoglobin ranged between 11.7-12.2. Urine protein electrop horesis, M-spike 17.9 08/20/2017. CT of the brain without contrast dated 08/19/2017 showed old infar ct in the right cerebellum. Extensive microvascular ischemic changes. Numerous round, lytic foci. Hypodense foci of the thalamus bilaterally, age indeterminate. Osseous bone survey dated 08/20/2017 showed numerous osseous metastatic lesions. CT of the chest, abdomen, and pelvis dated 08/21/2017 sh owed nodules in the medial right breast. Leiomyoma noted. Carotid Doppler study dated 08/20/2017 sh owed no hemodynamically significant stenosis. MRI of the brain dated 08/20/2017 showed small acute l eft middle cerebral artery distribution infarct. A 2D transthoracic echocardiogram dated 08/20/2017 showed ejection fraction 55%-60%. Diastolic dysfunction noted. HOSPITAL COURSE: Patient was admitted to the stroke unit after initially presenting with double visi on and ataxia. The patient underwent extensive evaluation including multiple neuro imaging studies w ith CT of the brain showing questionable ischemic CVA. The patient underwent MRI imaging confirming left middle cerebral artery distribution ischemic cerebrovascular accident, at which point patient wa s continued on general stroke protocol and treated with aspirin 325 mg daily. The patient was also n oted with elevated blood pressure with titration of her antihypertensive regimen with more optimal co ntrol by the time of discharge. During patient's neurologic workup for CVA, patient was discovered w ith numerous osteolytic lesions in the calvarium as well as areas involving the humerus and the femur s bilaterally. The patient underwent evaluation by the Medical Oncology service including multiple m etabolic studies evaluating for the potential of multiple myeloma. The patient was also noted with 2 right medial breast masses on CT of the chest with a diagnostic mammography unable to be performed d uring the hospital stay. Current recommendations are for outpatient diagnostic mammography to furthe r delineate and define these masses. The patient underwent a bone marrow biopsy on 08/24/2017 with f inal pathology pending. The patient was placed on eye patch due to nystagmus and double vision with overall improvement in symptoms and decreased nausea associated with the nystagmus. Current recommen dations are for alternating patching of the eyes on an ongoing basis after discharge. I have examine d the patient at the time of discharge and discussed pertinent laboratory studies, followup instructi on, at which point the patient verbalizes understanding and agreement. The patient overall clinicall y stable and ready for discharge on 08/25/2017. DISCHARGE MEDICATIONS: 1. Amlodipine 10 mg 1 tab p.o. daily. 2. Enteric-coated aspirin 325 mg p.o. daily. 3. Flexeril 10 mg p.o. b.i.d. 4. Lisinopril 20 mg p.o. daily. 5. Lovastatin 20 mg p.o. at bedtime. FOLLOWUP: Patient will follow up with Dr. Mota within 7 days of discharge. The patient will follow up with Dr. Virk with [facility] and to call his office for appointment time and date. CONDITION ON DISCHARGE: Fair. ACTIVITY: Ad edmundo. DIET: Heart healthy. SPECIAL INSTRUCTIONS: Recommend outpatient diagnostic mammogram. Follow up pathology results from b one marrow biopsy, 08/24/2017. CODE STATUS: FULL. DISPOSITION: Home, 08/25/2017, with home health services. Total time preparing and coordinating discharge is 37 minutes.
[2017-08-25 12:05] VITALS: TEMP 97.4
[2017-08-25 12:22] VITALS: BP 120/87
== END 2017-08-25 12:28 | disposition home health service (06) | DRG 66 ==
LOC: ERS 21:43 → ERHOLD 22:00 → 2SE 08-20 02:16
PROVIDERS: ADMIT Internal Medicine; ATTEND Internal Medicine
PROC: 07DR3ZX Extraction of Iliac Bone Marrow, Percutaneous Approach, Diagnostic (ICD-10-PCS; principal; 2017-08-24)
DX: I63.412 Cerebral infarction due to embolism of left middle cerebral artery (principal); H53.2 Diplopia; I16.0 Hypertensive urgency; I10 Essential (primary) hypertension; E78.5 Hyperlipidemia, unspecified; F17.210 Nicotine dependence, cigarettes, uncomplicated; M89.522 Osteolysis, left upper arm; M89.521 Osteolysis, right upper arm; M89.552 Osteolysis, left thigh; M89.551 Osteolysis, right thigh; N64.9 Disorder of breast, unspecified; E78.00 Pure hypercholesterolemia, unspecified; D25.9 Leiomyoma of uterus, unspecified
CPT/HCPCS: 20225; 36415; 70551; 71260; 74177; 77012; 77075; 80048; 80061; 80076; 83883; 84165; 84166; 84443; 85025; 85060; 85097; 85610; 85652; 85730; 88184; 88237; 88305; 88311; 88313; 88341; 88342; 88365; 93306; 93880; G8978-GP-CL; G8979-GP-CK; G8987-GO-CJ; G8988-GO-CI; G8996-GN-CH; G8997-GN-CH; J0360

== ENCOUNTER 2017-09-03 12:28 | Emergency (ER) | payer SELFPAY ==
--- NOTE | 2017-09-03 13:04 | RAD ---
PORTABLE AP CHEST XRAY: DATE: 09/03/17. HISTORY: Nausea and vomiting since this morning. Recently released from the hospital secondary to TIA. COMPARISON: 09/04/12. FINDINGS: The cardiac silhouette is magnified by projection but does appear mildly enlarged. Pulmonary vascula ture is within normal limits. Linear densities are seen at the right lung base, probably related to subsegmental atelectasis. There is minimal atelectasis at the left lung base. The lungs are otherwi se clear. Vascular calcifications are seen in a tortuous thoracic aorta. Degenerative changes are n oted in the spine. IMPRESSION: 1. No acute cardiopulmonary process. 2. Subsegmental atelectasis versus scarring at the right lung base. POS: [facility]
[2017-09-03 13:17] LABS: #Lymphocytes 1.3 thou/uL (1.20-3.40); #Monocytes 0.7 thou/uL (0.11-0.59); #Neutrophils 4.3 thou/uL (1.40-6.50); %Basophils 0.5 % (0.0-1.0); %Eosinophils 0.6 % (0.0-10.0); %Lymphocytes 20.8 % (21.0-51.0); %Monocytes 10.9 % (0.0-10.0); %Neutrophils 67.2 % (42.0-75.0); Hemoglobin 11.3 g/dL (12.0-16.0); Mean Corpuscular HGB CONC 34.6 g/dL (32.0-36.0); Mean Corpuscular Hemoglobin 38.3 pg (27.0-31.0); Mean Platelet Volume 7.1 fL (7.4-10.4); Platelet Count 192 thou/uL (130-400); RBC Distribution Width 11.7 % (11.5-14.5); Red Blood Cell (RBC) Count 2.95 mill/uL (4.20-5.40); White Blood Cell (WBC) Count 6.4 thou/uL (4.8-10.8)
[2017-09-03] MEDS ORDERED: Ondansetron ODT 8 MG TAB ONE (13:32)
[2017-09-03 13:40] LABS: Bilirubin Negative (Negative); Blood, Urine Negative (Negative); Clarity CLOUDY (Clear); Glucose, Urine (Dipstick) Negative (Negative); Leukocyte Moderate (Negative); Nitrite Negative (Negative); Protein, Urine (Dipstick) Negative (Neg-Trace); Specific Gravity, Urine 1.015 (1.002-1.036)
[2017-09-03 13:42] LABS: Bacteria/HPF None Seen HPF (None Seen); Hyaline Casts/LPF 0-3 HYALINE CAST LPF (0-3 Hyaline); Pathc Cast-AUWi Flag 0.43 (0-2.49); Squamous Epithelial 0-3 HPF (0-3)
[2017-09-03 13:48] LABS: ALT (SGPT) 13 U/L (8-55); AST (SGOT) 15 U/L (5-34); Albumin 4.3 g/dL (3.4-4.8); Alkaline Phosphatase 63 U/L (40-150); Anion Gap 15 mmol/L (10-20); BUN (Urea Nitrogen) 11 mg/dL (9.8-20.1); Bilirubin, Total 0.4 mg/dL (0.2-1.2); Calc. Creatinine Clearance 0 mL/min (70-130); Calcium 9.6 mg/dL (7.8-10.44); Carbon Dioxide 23 mmol/L (23-31); Chloride 107 mmol/L (98-107); Estimated GFR-MDRD Greater than 90; Glucose 108 mg/dL (80-115); Lipase 12 U/L (8-78); Protein, Total 6.3 g/dL (6.0-8.3); Sodium 141 mmol/L (136-145)
[2017-09-03 13:51] LABS: CKMB 0.4 ng/mL (0-6.6); Troponin I Less than 0.010 ng/mL (< 0.028)
--- NOTE | 2017-09-03 14:42 | CT ---
CT BRAIN WITHOUT CONTRAST: COMPARISON: None. History Nausea and vomiting since this morning. TIA 2 weeks ago and right eye visual changes. TECHNIQUE: Multiple contiguous axial images were obtained in a CT of the brain without contrast. FINDINGS: There are scattered hypodensities in the subcortical and periventricular white matter, likely seconda ry to small-vessel ischemic disease. No new large confluent infarction is seen. There is no evidenc e of hydrocephalus, intracranial hemorrhage, or extraaxial fluid collection. There are multiple punched out lytic lesions in the skull, unchanged compared to the prior exam. The visualized paranasal sinuses and mastoid air cells are well aerated. IMPRESSION: 1. No evidence of acute intracranial abnormality. 2. Multiple lytic lesions seen in the calvarium. Correlate with a history of multimyeloma. POS: [facility]
[2017-09-03] MEDS ORDERED: Meclizine HCl 25 MG TAB ONE (15:05)
== END 2017-09-03 16:15 | disposition home or self-care (01) ==
LOC: ERS 12:28
DX: H81.13 Benign paroxysmal vertigo, bilateral (principal); Z71.6 Tobacco abuse counseling; F17.210 Nicotine dependence, cigarettes, uncomplicated; E78.5 Hyperlipidemia, unspecified; I10 Essential (primary) hypertension
CPT/HCPCS: 36415; 70450; 71045; 80053; 81003; 81015; 82553; 83690; 84484; 85025; 93005; 99406

== ENCOUNTER 2017-09-10 16:10 | Emergency (ER) | payer SELFPAY ==
[2017-09-10] MEDS ORDERED: HYDROcodone/Acetaminophen 10/325 mg Tablet ONE (16:29)
[2017-09-10 16:50] LABS: Bilirubin Negative (Negative); Blood, Urine Negative (Negative); Clarity CLOUDY (Clear); Glucose, Urine (Dipstick) Negative (Negative); Leukocyte Moderate (Negative); Nitrite Negative (Negative); Protein, Urine (Dipstick) Negative (Neg-Trace); Specific Gravity, Urine 1.026 (1.002-1.036); pH, Urine 5.5 (5.0-9.0)
[2017-09-10 16:51] LABS: Bacteria/HPF None Seen HPF (None Seen); Hyaline Casts/LPF 0-3 HYALINE CAST LPF (0-3 Hyaline); Pathc Cast-AUWi Flag 0.72 (0-2.49)
[2017-09-10 17:03] LABS: Crystals/HPF 3+ CA OXALATE HPF (Negative); RBC/HPF 0-3 HPF (0-3)
--- NOTE | 2017-09-10 17:13 | RAD ---
LUMBAR SPINE TWO VIEWS: HISTORY: Chronic pain. History of bone cancer. COMPARISON: None. FINDINGS: There are five lumbar type vertebral bodies. There is diffuse bone demineralization. Pseudoarthrosi s of the left L5 ala over the sacrum. Lumbar spine vertebral body height is maintained. No fracture . Mild loss of disk space height and osteophyte formation at L2-L3. Mild compression fracture at T12, incompletely evaluated. IMPRESSION: No acute abnormality in the lumbar spine. POS: [facility]
--- NOTE | 2017-09-10 17:51 | RAD ---
THORACIC SPINE THREE VIEWS: HISTORY: Bone cancer. Chronic pain. COMPARISON: None. FINDINGS: There appears to be mild loss of vertebral body height at T12. The remaining thoracic vertebrae demo nstrate bone demineralization without evidence of fracture. No malalignment. Mild loss of disk spac e height throughout the thoracic spine. IMPRESSION: Mild loss of vertebral body height at T12, likely due to a remote injury. This findings is noted on a lateral tie hacker tomogram from a CT performed on 08/21/2017. POS: [facility]
== END 2017-09-10 17:37 | disposition home or self-care (01) ==
LOC: ERS 16:10
DX: M54.5 Low back pain (principal); E78.5 Hyperlipidemia, unspecified; I10 Essential (primary) hypertension; F17.210 Nicotine dependence, cigarettes, uncomplicated
CPT/HCPCS: 72072; 72100; 81003; 81015; 87086

== ENCOUNTER 2017-09-28 14:01 | Day surgery (SDC) | payer OTHER, SELFPAY ==
[2017-09-28] MEDS ORDERED: Sodium Chloride 0.9% 20 ML ONE (14:28)
[2017-09-28] MEDS ORDERED: ADMIXTURE FEE SC SCH (14:30)
[2017-09-28] MEDS ORDERED: BORTEZOMIB SC SCH (14:30)
[2017-09-28] MEDS ORDERED: Zoledronic Acid 4 MG in Sodium Chloride 0.9% 100 ML IVPB SCH (14:30)
[2017-09-28 14:42] VITALS: BP 111/65; TEMP 98
== END 2017-09-28 16:40 | disposition home or self-care (01) ==
LOC: ONC/OP 14:01
PROVIDERS: ATTEND Internal Medicine Hematology & Oncology
DX: Z51.11 Encounter for antineoplastic chemotherapy (principal); C90.00 Multiple myeloma not having achieved remission; I10 Essential (primary) hypertension; E78.5 Hyperlipidemia, unspecified; G89.29 Other chronic pain; Z86.73 Personal history of transient ischemic attack (TIA), and cerebral infarction without residual deficits; Z87.891 Personal history of nicotine dependence
CPT/HCPCS: 96365; 96401; A4216; J3489; J7050; J9041

== ENCOUNTER 2017-10-05 13:44 | Day surgery (SDC) | payer OTHER ==
[2017-10-05] MEDS ORDERED: ADMIXTURE FEE SC SCH (14:00)
[2017-10-05] MEDS ORDERED: BORTEZOMIB SC SCH (14:00)
[2017-10-05 14:18] VITALS: BP 114/60; TEMP 97.9
== END 2017-10-05 18:54 | disposition home or self-care (01) ==
LOC: ONC/OP 13:44
PROVIDERS: ATTEND Internal Medicine Hematology & Oncology
DX: Z51.11 Encounter for antineoplastic chemotherapy (principal); C90.00 Multiple myeloma not having achieved remission; I10 Essential (primary) hypertension; E78.5 Hyperlipidemia, unspecified; G89.29 Other chronic pain; M54.9 Dorsalgia, unspecified; Z86.73 Personal history of transient ischemic attack (TIA), and cerebral infarction without residual deficits; Z87.891 Personal history of nicotine dependence; Z79.899 Other long term (current) drug therapy
CPT/HCPCS: 96401; J9041

== ENCOUNTER 2017-10-12 13:45 | Day surgery (SDC) | payer OTHER ==
[2017-10-12] MEDS ORDERED: ADMIXTURE FEE SC SCH (14:15)
[2017-10-12] MEDS ORDERED: BORTEZOMIB SC SCH (14:15)
[2017-10-12 18:19] VITALS: BP 142/79; TEMP 98
== END 2017-10-12 18:19 | disposition home or self-care (01) ==
LOC: ONC/OP 13:45
PROVIDERS: ATTEND Internal Medicine Hematology & Oncology
DX: Z51.11 Encounter for antineoplastic chemotherapy (principal); C90.00 Multiple myeloma not having achieved remission; I10 Essential (primary) hypertension; E78.5 Hyperlipidemia, unspecified; G89.29 Other chronic pain; M54.9 Dorsalgia, unspecified; Z86.73 Personal history of transient ischemic attack (TIA), and cerebral infarction without residual deficits; Z87.891 Personal history of nicotine dependence; Z79.899 Other long term (current) drug therapy
CPT/HCPCS: 96401; J9041

== ENCOUNTER 2017-10-19 14:03 | Day surgery (SDC) | payer OTHER, SELFPAY ==
[2017-10-19 14:21] VITALS: BP 142/69; TEMP 98.2
[2017-10-19] MEDS ORDERED: BORTEZOMIB SC SCH (14:30)
[2017-10-19] MEDS ORDERED: valACYclovir 500 MG TAB PO SCH (14:30)
[2017-10-19] MEDS ORDERED: Dexamethasone 4 MG TAB PO SCH (14:30)
[2017-10-19] MEDS ORDERED: ADMIXTURE FEE SC SCH (14:30)
== END 2017-10-19 15:09 | disposition home or self-care (01) ==
LOC: ONC/OP 14:03
PROVIDERS: ATTEND Internal Medicine Hematology & Oncology
DX: Z51.11 Encounter for antineoplastic chemotherapy (principal); C90.00 Multiple myeloma not having achieved remission; I10 Essential (primary) hypertension; E78.5 Hyperlipidemia, unspecified; G89.29 Other chronic pain; M54.9 Dorsalgia, unspecified; Z86.73 Personal history of transient ischemic attack (TIA), and cerebral infarction without residual deficits; Z87.891 Personal history of nicotine dependence; Z79.899 Other long term (current) drug therapy
CPT/HCPCS: 96401

== ENCOUNTER 2017-10-26 13:34 | Day surgery (SDC) | payer OTHER ==
[2017-10-26] MEDS ORDERED: BORTEZOMIB SC SCH (13:45)
[2017-10-26] MEDS ORDERED: PRE FILLED SC SCH (13:45)
[2017-10-26 14:03] VITALS: BP 136/80
== END 2017-10-26 17:01 | disposition home or self-care (01) ==
LOC: ONC/OP 13:34
PROVIDERS: ATTEND Internal Medicine Hematology & Oncology
DX: Z51.11 Encounter for antineoplastic chemotherapy (principal); C90.00 Multiple myeloma not having achieved remission; I10 Essential (primary) hypertension; E78.5 Hyperlipidemia, unspecified; Z79.899 Other long term (current) drug therapy; Z87.891 Personal history of nicotine dependence
CPT/HCPCS: 96401; J9041

== ENCOUNTER 2017-11-03 13:29 | Day surgery (SDC) | payer OTHER ==
[2017-11-03] MEDS ORDERED: BORTEZOMIB SC SCH (13:45)
[2017-11-03] MEDS ORDERED: ADMIXTURE FEE SC SCH (13:45)
[2017-11-03] MEDS ORDERED: Dexamethasone 4 MG TAB PO SCH (13:45)
[2017-11-03 13:56] VITALS: BP 134/75; TEMP 98.4
== END 2017-11-03 14:31 | disposition home or self-care (01) ==
LOC: ONC/OP 13:29
PROVIDERS: ATTEND Internal Medicine Hematology & Oncology
DX: Z51.11 Encounter for antineoplastic chemotherapy (principal); C90.00 Multiple myeloma not having achieved remission; I10 Essential (primary) hypertension; E78.5 Hyperlipidemia, unspecified; G89.29 Other chronic pain; M54.9 Dorsalgia, unspecified; Z79.899 Other long term (current) drug therapy; Z87.891 Personal history of nicotine dependence; Z86.73 Personal history of transient ischemic attack (TIA), and cerebral infarction without residual deficits
CPT/HCPCS: 96401; J9041

== ENCOUNTER 2017-11-09 12:53 | Day surgery (SDC) | payer OTHER ==
[2017-11-09] MEDS ORDERED: PRE FILLED SC SCH (13:15)
[2017-11-09] MEDS ORDERED: BORTEZOMIB SC SCH (13:15)
[2017-11-09 14:04] VITALS: BP 172/97; TEMP 98.1
== END 2017-11-09 13:54 | disposition home or self-care (01) ==
LOC: ONC/OP 12:53
PROVIDERS: ATTEND Internal Medicine Hematology & Oncology
DX: Z51.11 Encounter for antineoplastic chemotherapy (principal); C90.00 Multiple myeloma not having achieved remission; I10 Essential (primary) hypertension; E78.5 Hyperlipidemia, unspecified; G89.29 Other chronic pain; M54.9 Dorsalgia, unspecified; Z86.73 Personal history of transient ischemic attack (TIA), and cerebral infarction without residual deficits; Z87.891 Personal history of nicotine dependence; Z79.899 Other long term (current) drug therapy
CPT/HCPCS: 96401; J9041

== ENCOUNTER 2017-11-24 13:33 | Day surgery (SDC) | payer OTHER, SELFPAY ==
[2017-11-24 13:52] VITALS: BP 144/85; TEMP 98
[2017-11-24] MEDS ORDERED: BORTEZOMIB SC SCH (14:30)
[2017-11-24] MEDS ORDERED: ADMIXTURE FEE CHEMO SC SCH (14:30)
== END 2017-11-24 16:18 | disposition home or self-care (01) ==
LOC: ONC/OP 13:33
PROVIDERS: ATTEND Internal Medicine Hematology & Oncology
DX: Z51.11 Encounter for antineoplastic chemotherapy (principal); C90.00 Multiple myeloma not having achieved remission; I10 Essential (primary) hypertension; E78.5 Hyperlipidemia, unspecified; G89.29 Other chronic pain; Z86.73 Personal history of transient ischemic attack (TIA), and cerebral infarction without residual deficits; Z87.891 Personal history of nicotine dependence
CPT/HCPCS: 96401; J9041

== ENCOUNTER 2017-12-01 11:32 | Day surgery (SDC) | payer OTHER, SELFPAY ==
[2017-12-01] MEDS ORDERED: valACYclovir 500 MG TAB PO SCH (11:45)
[2017-12-01] MEDS ORDERED: ADMIXTURE FEE CHEMO SC SCH (11:45)
[2017-12-01] MEDS ORDERED: BORTEZOMIB SC SCH (11:45)
[2017-12-01] MEDS ORDERED: Dexamethasone 4 MG TAB PO SCH (11:45)
[2017-12-01 12:23] VITALS: BP 147/89; TEMP 98.1
== END 2017-12-01 12:28 | disposition home or self-care (01) ==
LOC: ONC/OP 11:32
PROVIDERS: ATTEND Internal Medicine Hematology & Oncology
DX: Z51.11 Encounter for antineoplastic chemotherapy (principal); C90.00 Multiple myeloma not having achieved remission; I10 Essential (primary) hypertension; E78.5 Hyperlipidemia, unspecified; G89.29 Other chronic pain; M54.9 Dorsalgia, unspecified; Z86.73 Personal history of transient ischemic attack (TIA), and cerebral infarction without residual deficits; Z87.891 Personal history of nicotine dependence
CPT/HCPCS: 96401

== ENCOUNTER 2017-12-08 11:45 | Day surgery (SDC) | payer OTHER ==
[2017-12-08 11:59] VITALS: BP 158/87; TEMP 97.9
[2017-12-08] MEDS ORDERED: BORTEZOMIB SC SCH (12:30)
[2017-12-08] MEDS ORDERED: ADMIXTURE FEE CHEMO SC SCH (12:30)
== END 2017-12-08 13:47 | disposition home or self-care (01) ==
LOC: ONC/OP 11:45
PROVIDERS: ATTEND Internal Medicine Hematology & Oncology
DX: Z51.11 Encounter for antineoplastic chemotherapy (principal); C90.00 Multiple myeloma not having achieved remission; I10 Essential (primary) hypertension; E78.5 Hyperlipidemia, unspecified; Z87.891 Personal history of nicotine dependence; Z79.899 Other long term (current) drug therapy
CPT/HCPCS: 96401; J9041

== ENCOUNTER 2017-12-15 10:24 | Day surgery (SDC) | payer OTHER, SELFPAY ==
[2017-12-15] MEDS ORDERED: BORTEZOMIB SC SCH (10:45)
[2017-12-15] MEDS ORDERED: Dexamethasone 4 MG TAB PO SCH (10:45)
[2017-12-15] MEDS ORDERED: ADMIXTURE FEE CHEMO SC SCH (10:45)
[2017-12-15 12:19] VITALS: BP 131/79; TEMP 98.1
== END 2017-12-15 12:19 | disposition home or self-care (01) ==
LOC: ONC/OP 10:24
PROVIDERS: ATTEND Internal Medicine Hematology & Oncology
DX: Z51.11 Encounter for antineoplastic chemotherapy (principal); C90.00 Multiple myeloma not having achieved remission; I10 Essential (primary) hypertension; E78.5 Hyperlipidemia, unspecified; Z87.891 Personal history of nicotine dependence; Z79.899 Other long term (current) drug therapy
CPT/HCPCS: 96401

== ENCOUNTER 2017-12-22 10:50 | Day surgery (SDC) | payer OTHER ==
[2017-12-22] MEDS ORDERED: ADMIXTURE FEE CHEMO SC SCH (11:15)
[2017-12-22] MEDS ORDERED: BORTEZOMIB SC SCH (11:15)
[2017-12-22] MEDS ORDERED: Zoledronic Acid 4 MG in Sodium Chloride 0.9% 100 ML IVPB SCH (12:15)
[2017-12-22] MEDS ORDERED: Sodium Chloride 0.9% 20 ML ONE (12:57)
[2017-12-22 13:10] VITALS: BP 131/74; TEMP 97.5
== END 2017-12-22 13:08 | disposition home or self-care (01) ==
LOC: ONC/OP 10:50
PROVIDERS: ATTEND Internal Medicine Hematology & Oncology
DX: Z51.11 Encounter for antineoplastic chemotherapy (principal); C90.00 Multiple myeloma not having achieved remission; I10 Essential (primary) hypertension; E78.5 Hyperlipidemia, unspecified; Z87.891 Personal history of nicotine dependence; Z79.899 Other long term (current) drug therapy
CPT/HCPCS: 96367; 96401; J3489; J7050

== ENCOUNTER 2017-12-29 11:17 | Day surgery (SDC) | payer OTHER ==
[2017-12-29 11:48] VITALS: BP 135/80; TEMP 97.7
[2017-12-29] MEDS ORDERED: Dexamethasone 4 MG TAB PO SCH (12:00)
[2017-12-29] MEDS ORDERED: BORTEZOMIB SC SCH (12:00)
[2017-12-29] MEDS ORDERED: ADMIXTURE FEE CHEMO SC SCH (12:00)
== END 2017-12-29 16:31 | disposition home or self-care (01) ==
LOC: ONC/OP 11:17
PROVIDERS: ATTEND Internal Medicine Hematology & Oncology
DX: Z51.11 Encounter for antineoplastic chemotherapy (principal); C90.00 Multiple myeloma not having achieved remission; I10 Essential (primary) hypertension; E78.5 Hyperlipidemia, unspecified; Z87.891 Personal history of nicotine dependence; Z79.899 Other long term (current) drug therapy
CPT/HCPCS: 96401; J9041

== ENCOUNTER 2018-01-05 10:21 | Day surgery (SDC) | payer OTHER ==
[2018-01-05 10:42] VITALS: BP 139/75; TEMP 98.2
[2018-01-05] MEDS ORDERED: Dexamethasone 4 MG TAB PO SCH (10:45)
== END 2018-01-05 14:58 | disposition home or self-care (01) ==
LOC: ONC/OP 10:21
PROVIDERS: ATTEND Internal Medicine Hematology & Oncology
DX: Z51.11 Encounter for antineoplastic chemotherapy (principal); C90.00 Multiple myeloma not having achieved remission; I10 Essential (primary) hypertension; E78.5 Hyperlipidemia, unspecified; G89.29 Other chronic pain; M54.9 Dorsalgia, unspecified; Z86.73 Personal history of transient ischemic attack (TIA), and cerebral infarction without residual deficits; Z87.891 Personal history of nicotine dependence; Z79.899 Other long term (current) drug therapy
CPT/HCPCS: 96401; J9041

== ENCOUNTER 2018-01-12 11:23 | Day surgery (SDC) | payer OTHER ==
[2018-01-12] MEDS ORDERED: ADMIXTURE FEE CHEMO SC SCH (12:15)
[2018-01-12] MEDS ORDERED: BORTEZOMIB SC SCH (12:15)
[2018-01-12 12:56] VITALS: BP 144/67; TEMP 98.2
== END 2018-01-12 12:57 | disposition home or self-care (01) ==
LOC: ONC/OP 11:23
PROVIDERS: ATTEND Internal Medicine Hematology & Oncology
DX: Z51.11 Encounter for antineoplastic chemotherapy (principal); C90.00 Multiple myeloma not having achieved remission; I10 Essential (primary) hypertension; E78.5 Hyperlipidemia, unspecified; Z87.891 Personal history of nicotine dependence; Z79.899 Other long term (current) drug therapy
CPT/HCPCS: 96401; J9041

== ENCOUNTER 2018-01-19 10:24 | Day surgery (SDC) | payer OTHER ==
[2018-01-19] MEDS ORDERED: PRE FILLED SC SCH (11:00)
[2018-01-19] MEDS ORDERED: Dexamethasone 4 MG TAB PO SCH (11:00)
[2018-01-19] MEDS ORDERED: BORTEZOMIB SC SCH (11:00)
[2018-01-19 13:32] VITALS: BP 131/78; TEMP 97.7
== END 2018-01-19 13:32 | disposition home or self-care (01) ==
LOC: ONC/OP 10:24
PROVIDERS: ATTEND Internal Medicine Hematology & Oncology
DX: Z51.11 Encounter for antineoplastic chemotherapy (principal); C90.00 Multiple myeloma not having achieved remission; I10 Essential (primary) hypertension; E78.5 Hyperlipidemia, unspecified; Z87.891 Personal history of nicotine dependence; Z79.899 Other long term (current) drug therapy
CPT/HCPCS: 96401; J9041

== ENCOUNTER 2018-01-26 10:35 | Day surgery (SDC) | payer OTHER, SELFPAY ==
[2018-01-26] MEDS ORDERED: ADMIXTURE FEE SC SCH (11:15)
[2018-01-26] MEDS ORDERED: BORTEZOMIB SC SCH (11:15)
[2018-01-26 11:28] VITALS: BP 157/87; TEMP 98.6
== END 2018-01-26 11:40 | disposition home or self-care (01) ==
LOC: ONC/OP 10:35
PROVIDERS: ATTEND Internal Medicine Hematology & Oncology
DX: Z51.11 Encounter for antineoplastic chemotherapy (principal); C90.00 Multiple myeloma not having achieved remission; I10 Essential (primary) hypertension; E78.5 Hyperlipidemia, unspecified; Z87.891 Personal history of nicotine dependence; Z79.899 Other long term (current) drug therapy
CPT/HCPCS: 96401

== ENCOUNTER 2018-02-09 10:26 | Day surgery (SDC) | payer OTHER ==
[2018-02-09] MEDS ORDERED: valACYclovir 500 MG TAB PO SCH (11:00)
[2018-02-09] MEDS ORDERED: Dexamethasone 4 MG TAB PO SCH (11:00)
[2018-02-09] MEDS ORDERED: REVLIMID PO SCH (11:00)
[2018-02-09 11:02] VITALS: BP 165/82; TEMP 98.5
[2018-02-10] MEDS ORDERED: valACYclovir 500 MG TAB PO SCH (09:00)
== END 2018-02-09 15:26 | disposition home or self-care (01) ==
LOC: ONC/OP 10:26
PROVIDERS: ATTEND Internal Medicine Hematology & Oncology
DX: Z51.11 Encounter for antineoplastic chemotherapy (principal); C90.00 Multiple myeloma not having achieved remission; I10 Essential (primary) hypertension; E78.5 Hyperlipidemia, unspecified; Z87.891 Personal history of nicotine dependence; Z79.899 Other long term (current) drug therapy
CPT/HCPCS: 96401; J9041

== ENCOUNTER 2018-02-16 10:24 | Day surgery (SDC) | payer OTHER ==
[2018-02-16 12:00] VITALS: BP 191/97; TEMP 98.6
== END 2018-02-16 12:20 | disposition home or self-care (01) ==
LOC: ONC/OP 10:24
PROVIDERS: ATTEND Internal Medicine Hematology & Oncology
DX: Z51.11 Encounter for antineoplastic chemotherapy (principal); C90.00 Multiple myeloma not having achieved remission; I10 Essential (primary) hypertension; E78.5 Hyperlipidemia, unspecified; Z86.73 Personal history of transient ischemic attack (TIA), and cerebral infarction without residual deficits; Z87.891 Personal history of nicotine dependence; Z79.82 Long term (current) use of aspirin; Z79.899 Other long term (current) drug therapy
CPT/HCPCS: 96401; J9041

== ENCOUNTER 2018-02-23 10:55 | Day surgery (SDC) | payer OTHER ==
[2018-02-23] MEDS ORDERED: Dexamethasone 4 MG TAB PO SCH (11:15)
[2018-02-23] MEDS ORDERED: BORTEZOMIB SC SCH (11:15)
[2018-02-23 11:47] VITALS: BP 164/80; TEMP 98
== END 2018-02-23 11:51 | disposition home or self-care (01) ==
LOC: ONC/OP 10:55
PROVIDERS: ATTEND Internal Medicine Hematology & Oncology
DX: Z51.11 Encounter for antineoplastic chemotherapy (principal); C90.00 Multiple myeloma not having achieved remission; G89.29 Other chronic pain; M54.9 Dorsalgia, unspecified; E78.5 Hyperlipidemia, unspecified; I10 Essential (primary) hypertension; Z86.73 Personal history of transient ischemic attack (TIA), and cerebral infarction without residual deficits; Z87.891 Personal history of nicotine dependence; Z79.899 Other long term (current) drug therapy
CPT/HCPCS: 96401; J9041

== ENCOUNTER 2018-03-02 10:48 | Day surgery (SDC) | payer OTHER ==
[2018-03-02 11:09] VITALS: BP 179/93; TEMP 97.8
[2018-03-02] MEDS ORDERED: PRE FILLED SC SCH (11:30)
[2018-03-02] MEDS ORDERED: BORTEZOMIB SC SCH ×2 (11:30)
== END 2018-03-02 11:57 | disposition home or self-care (01) ==
LOC: ONC/OP 10:48
PROVIDERS: ATTEND Internal Medicine Hematology & Oncology
DX: Z51.11 Encounter for antineoplastic chemotherapy (principal); C90.00 Multiple myeloma not having achieved remission; Z86.73 Personal history of transient ischemic attack (TIA), and cerebral infarction without residual deficits
CPT/HCPCS: 96401; J9041

== ENCOUNTER 2018-03-09 10:16 | Day surgery (SDC) | payer OTHER, SELFPAY ==
[2018-03-09] MEDS ORDERED: ADMIXTURE FEE SC SCH (10:45)
[2018-03-09] MEDS ORDERED: BORTEZOMIB SC SCH (10:45)
[2018-03-09 11:18] VITALS: BP 200/99; TEMP 98
== END 2018-03-09 12:34 | disposition home or self-care (01) ==
LOC: ONC/OP 10:16
PROVIDERS: ATTEND Internal Medicine Hematology & Oncology
DX: Z51.11 Encounter for antineoplastic chemotherapy (principal); C90.00 Multiple myeloma not having achieved remission; I10 Essential (primary) hypertension; E78.5 Hyperlipidemia, unspecified; G89.29 Other chronic pain; M54.9 Dorsalgia, unspecified; Z86.73 Personal history of transient ischemic attack (TIA), and cerebral infarction without residual deficits; Z87.891 Personal history of nicotine dependence; Z79.899 Other long term (current) drug therapy
CPT/HCPCS: 96401; J9041

== ENCOUNTER 2018-03-16 10:54 | Day surgery (SDC) | payer OTHER ==
[2018-03-16] MEDS ORDERED: Sodium Chloride 0.9% 20 ML ONE (11:05)
[2018-03-16] MEDS ORDERED: ADMIXTURE FEE SC SCH (11:45)
[2018-03-16] MEDS ORDERED: BORTEZOMIB SC SCH (11:45)
[2018-03-16] MEDS ORDERED: ZOMETA IVPB SCH (12:00)
[2018-03-16 12:04] VITALS: TEMP 98.1
== END 2018-03-16 12:50 | disposition home or self-care (01) ==
LOC: ONC/OP 10:54
PROVIDERS: ATTEND Internal Medicine Hematology & Oncology
DX: Z51.11 Encounter for antineoplastic chemotherapy (principal); C90.00 Multiple myeloma not having achieved remission
CPT/HCPCS: 96365; 96401

== ENCOUNTER → 2018-03-23 | Day surgery (SDC) | payer OTHER ==
[~2018-03-23] MED LIST: BORTEZOMIB SC SCH
[2018-03-23 10:50] VITALS: BP 184/82; TEMP 98.7
== END ==
LOC: ONC/OP 10:32
PROVIDERS: ATTEND Internal Medicine Hematology & Oncology
DX: Z51.11 Encounter for antineoplastic chemotherapy (principal); C90.00 Multiple myeloma not having achieved remission; I10 Essential (primary) hypertension; E78.5 Hyperlipidemia, unspecified; G89.29 Other chronic pain; M54.9 Dorsalgia, unspecified; Z86.73 Personal history of transient ischemic attack (TIA), and cerebral infarction without residual deficits; Z87.891 Personal history of nicotine dependence; Z79.899 Other long term (current) drug therapy
CPT/HCPCS: 96401; J9041

== ENCOUNTER 2018-03-30 10:23 | Day surgery (SDC) | payer OTHER ==
[2018-03-30] MEDS ORDERED: ADMIXTURE FEE SC SCH (10:45)
[2018-03-30] MEDS ORDERED: BORTEZOMIB SC SCH (10:45)
[2018-03-30 12:51] VITALS: BP 150/92; TEMP 97.8
== END 2018-03-30 14:39 | disposition home or self-care (01) ==
LOC: ONC/OP 10:23
PROVIDERS: ATTEND Internal Medicine Hematology & Oncology
DX: Z51.11 Encounter for antineoplastic chemotherapy (principal); C90.00 Multiple myeloma not having achieved remission; I10 Essential (primary) hypertension; E78.5 Hyperlipidemia, unspecified; G89.29 Other chronic pain; M54.9 Dorsalgia, unspecified; Z86.73 Personal history of transient ischemic attack (TIA), and cerebral infarction without residual deficits; Z87.891 Personal history of nicotine dependence; Z79.899 Other long term (current) drug therapy
CPT/HCPCS: 96401; J9041

== ENCOUNTER 2018-04-06 11:22 | Day surgery (SDC) | payer MEDICARE, OTHER ==
[2018-04-06] MEDS ORDERED: Dexamethasone 4 MG TAB PO SCH (11:45)
[2018-04-06] MEDS ORDERED: BORTEZOMIB SC SCH (11:45)
[2018-04-06] MEDS ORDERED: ADMIXTURE FEE SC SCH (11:45)
[2018-04-06 11:51] VITALS: BP 191/99; TEMP 98.3
== END 2018-04-06 16:24 | disposition home or self-care (01) ==
LOC: ONC/OP 11:22
PROVIDERS: ATTEND Internal Medicine Hematology & Oncology
DX: Z51.11 Encounter for antineoplastic chemotherapy (principal); C90.00 Multiple myeloma not having achieved remission; E78.5 Hyperlipidemia, unspecified; G89.29 Other chronic pain; M54.9 Dorsalgia, unspecified; I10 Essential (primary) hypertension; Z87.891 Personal history of nicotine dependence; Z86.73 Personal history of transient ischemic attack (TIA), and cerebral infarction without residual deficits; Z79.899 Other long term (current) drug therapy
CPT/HCPCS: 96401

== ENCOUNTER 2018-04-13 10:52 | Day surgery (SDC) | payer MEDICARE, OTHER ==
[2018-04-13] MEDS ORDERED: ADMIXTURE FEE SC SCH (11:15)
[2018-04-13] MEDS ORDERED: BORTEZOMIB SC SCH (11:15)
[2018-04-13 11:43] VITALS: BP 196/91; TEMP 98.2
== END 2018-04-13 15:56 | disposition home or self-care (01) ==
LOC: ONC/OP 10:52
PROVIDERS: ATTEND Internal Medicine Hematology & Oncology
DX: Z51.11 Encounter for antineoplastic chemotherapy (principal); C90.00 Multiple myeloma not having achieved remission; E78.5 Hyperlipidemia, unspecified; G89.29 Other chronic pain; M54.9 Dorsalgia, unspecified; I10 Essential (primary) hypertension; Z86.73 Personal history of transient ischemic attack (TIA), and cerebral infarction without residual deficits; Z87.891 Personal history of nicotine dependence; Z79.899 Other long term (current) drug therapy
CPT/HCPCS: 36415; 80053; 82248; 83615; 83883; 84100; 84165; 84550; 96401; J9041

== ENCOUNTER 2018-04-20 10:36 | Day surgery (SDC) | payer MEDICARE, OTHER ==
[2018-04-20] MEDS ORDERED: BORTEZOMIB SC SCH (11:00)
[2018-04-20] MEDS ORDERED: ADMIXTURE FEE SC SCH (11:00)
[2018-04-20 12:20] VITALS: BP 175/81; TEMP 97.9
== END 2018-04-20 12:20 | disposition home or self-care (01) ==
LOC: ONC/OP 10:36
PROVIDERS: ATTEND Internal Medicine Hematology & Oncology
DX: Z51.11 Encounter for antineoplastic chemotherapy (principal); C90.00 Multiple myeloma not having achieved remission; I10 Essential (primary) hypertension; E78.5 Hyperlipidemia, unspecified; G89.29 Other chronic pain; M54.9 Dorsalgia, unspecified; Z86.73 Personal history of transient ischemic attack (TIA), and cerebral infarction without residual deficits; Z87.891 Personal history of nicotine dependence; Z79.899 Other long term (current) drug therapy
CPT/HCPCS: 96401; J9041

== ENCOUNTER 2018-04-27 00:07 | Day surgery (SDC) | payer MEDICARE, OTHER ==
[2018-04-27] MEDS ORDERED: ADMIXTURE FEE SC SCH (06:15)
[2018-04-27] MEDS ORDERED: BORTEZOMIB SC SCH (06:15)
[2018-04-27 12:30] VITALS: BP 157/83; TEMP 98.7
== END 2018-04-27 12:30 | disposition home or self-care (01) ==
LOC: ONC/OP 00:07
PROVIDERS: ATTEND Internal Medicine Hematology & Oncology
DX: Z51.11 Encounter for antineoplastic chemotherapy (principal); C90.00 Multiple myeloma not having achieved remission; I10 Essential (primary) hypertension; E78.5 Hyperlipidemia, unspecified; G89.29 Other chronic pain; M54.9 Dorsalgia, unspecified; Z86.73 Personal history of transient ischemic attack (TIA), and cerebral infarction without residual deficits; Z87.891 Personal history of nicotine dependence
CPT/HCPCS: 96401; J9041

== ENCOUNTER → 2018-05-04 | Day surgery (SDC) | payer MEDICARE, OTHER ==
[~2018-05-04] MED LIST changes: +ADMIXTURE FEE SC SCH
[2018-05-04 11:42] VITALS: BP 162/79; TEMP 97.9
== END ==
LOC: ONC/OP 06:27
PROVIDERS: ATTEND Internal Medicine Hematology & Oncology
DX: Z51.11 Encounter for antineoplastic chemotherapy (principal); C90.00 Multiple myeloma not having achieved remission; I10 Essential (primary) hypertension; E78.5 Hyperlipidemia, unspecified; G89.29 Other chronic pain; M54.9 Dorsalgia, unspecified; Z86.73 Personal history of transient ischemic attack (TIA), and cerebral infarction without residual deficits; Z87.891 Personal history of nicotine dependence
CPT/HCPCS: 36415; 80053; 82248; 83615; 84100; 84550; 96401

== ENCOUNTER 2018-05-11 10:11 | Day surgery (SDC) | payer MEDICARE, OTHER ==
[2018-05-11 10:30] VITALS: BP 143/84; TEMP 98.2
== END 2018-05-11 11:42 | disposition home or self-care (01) ==
LOC: ONC/OP 10:11
PROVIDERS: ATTEND Internal Medicine Hematology & Oncology
DX: Z51.11 Encounter for antineoplastic chemotherapy (principal); C90.00 Multiple myeloma not having achieved remission; E78.5 Hyperlipidemia, unspecified; G89.29 Other chronic pain; M54.9 Dorsalgia, unspecified; I10 Essential (primary) hypertension; Z86.73 Personal history of transient ischemic attack (TIA), and cerebral infarction without residual deficits; Z87.891 Personal history of nicotine dependence
CPT/HCPCS: 96401

== ENCOUNTER 2018-05-18 10:14 | Day surgery (SDC) | payer MEDICARE, OTHER ==
[2018-05-18 10:44] VITALS: BP 110/63; TEMP 99
== END 2018-05-18 11:50 | disposition home or self-care (01) ==
LOC: ONC/OP 10:14
PROVIDERS: ATTEND Internal Medicine Hematology & Oncology
DX: Z51.11 Encounter for antineoplastic chemotherapy (principal); C90.00 Multiple myeloma not having achieved remission; I10 Essential (primary) hypertension; E78.5 Hyperlipidemia, unspecified; G89.29 Other chronic pain; M54.9 Dorsalgia, unspecified; Z87.891 Personal history of nicotine dependence; Z86.73 Personal history of transient ischemic attack (TIA), and cerebral infarction without residual deficits
CPT/HCPCS: 96401; J9041

== ENCOUNTER 2018-05-25 10:54 | Day surgery (SDC) | payer MEDICARE, OTHER | END 2018-05-25 11:58 | disposition home or self-care (01) | LOC: ONC/OP 10:54 | PROVIDERS: ATTEND Internal Medicine Hematology & Oncology | DX: Z51.11 Encounter for antineoplastic chemotherapy (principal); C90.00 Multiple myeloma not having achieved remission | CPT/HCPCS: 80053; 82248; 83615; 84100; 84550; 96401; J9041 ==

== ENCOUNTER 2018-06-01 11:02 | Day surgery (SDC) | payer MEDICARE, OTHER | END 2018-06-01 11:32 | disposition home or self-care (01) | LOC: ONC/OP 11:02 | PROVIDERS: ATTEND Internal Medicine Hematology & Oncology | DX: Z51.11 Encounter for antineoplastic chemotherapy (principal); C90.00 Multiple myeloma not having achieved remission; I10 Essential (primary) hypertension; E78.5 Hyperlipidemia, unspecified; Z86.73 Personal history of transient ischemic attack (TIA), and cerebral infarction without residual deficits | CPT/HCPCS: 96401; J9041 ==

== ENCOUNTER 2018-06-08 10:56 | Day surgery (SDC) | payer MEDICARE, OTHER ==
[~2018-06-08 10:56] MED LIST changes: +Dexamethasone 4 MG TAB PO SCH; +Zoledronic Acid 4 MG in Sodium Chloride 0.9% 100 ML IVPB SCH
[2018-06-08 14:10] VITALS: BP 141/80; TEMP 98.3
== END 2018-06-08 14:12 | disposition home or self-care (01) ==
LOC: ONC/OP 10:56
PROVIDERS: ATTEND Internal Medicine Hematology & Oncology
DX: Z51.11 Encounter for antineoplastic chemotherapy (principal); C90.00 Multiple myeloma not having achieved remission; I10 Essential (primary) hypertension; E78.5 Hyperlipidemia, unspecified; Z86.73 Personal history of transient ischemic attack (TIA), and cerebral infarction without residual deficits; Z87.891 Personal history of nicotine dependence
CPT/HCPCS: 36415; 82565; 96365; 96401; J3489; J7050

== ENCOUNTER 2018-06-22 10:46 | Day surgery (SDC) | payer MEDICARE, OTHER ==
[~2018-06-22 10:46] MED LIST changes: -Zoledronic Acid 4 MG in Sodium Chloride 0.9% 100 ML IVPB SCH; +valACYclovir 500 MG TAB PO SCH
[2018-06-22] MEDS ORDERED: BORTEZOMIB SC SCH (11:30)
[2018-06-22] MEDS ORDERED: ADMIXTURE FEE SC SCH (11:30)
[2018-06-22 12:03] VITALS: BP 102/63; TEMP 98
== END 2018-06-22 12:03 | disposition home or self-care (01) ==
LOC: ONC/OP 10:46
PROVIDERS: ATTEND Internal Medicine Hematology & Oncology
DX: Z51.11 Encounter for antineoplastic chemotherapy (principal); C90.00 Multiple myeloma not having achieved remission
CPT/HCPCS: 36415; 80053; 82248; 83615; 83883; 84100; 84550; 96401

== ENCOUNTER 2018-07-06 10:13 | Day surgery (SDC) | payer MEDICARE, OTHER ==
[2018-07-06 10:23] VITALS: BP 119/63; TEMP 98.2
== END 2018-07-06 11:05 | disposition home or self-care (01) ==
LOC: ONC/OP 10:13
PROVIDERS: ATTEND Internal Medicine Hematology & Oncology
DX: Z51.11 Encounter for antineoplastic chemotherapy (principal); C90.00 Multiple myeloma not having achieved remission
CPT/HCPCS: 96401; J9041

== ENCOUNTER 2018-07-20 10:11 | Day surgery (SDC) | payer MEDICARE, OTHER ==
[2018-07-20 11:40] VITALS: BP 119/75; TEMP 97.6
== END 2018-07-20 11:40 | disposition home or self-care (01) ==
LOC: ONC/OP 10:11
PROVIDERS: ATTEND Internal Medicine Hematology & Oncology
DX: Z51.11 Encounter for antineoplastic chemotherapy (principal); C90.00 Multiple myeloma not having achieved remission
CPT/HCPCS: 96401

== ENCOUNTER 2018-08-03 10:22 | Day surgery (SDC) | payer MEDICARE, OTHER ==
[2018-08-03 10:55] VITALS: BP 110/68; TEMP 97.5
== END 2018-08-03 10:56 | disposition home or self-care (01) ==
LOC: ONC/OP 10:22
PROVIDERS: ATTEND Internal Medicine Hematology & Oncology
DX: Z51.11 Encounter for antineoplastic chemotherapy (principal); C90.00 Multiple myeloma not having achieved remission; Z79.82 Long term (current) use of aspirin; Z79.899 Other long term (current) drug therapy
CPT/HCPCS: 80053; 82248; 83615; 83883; 84100; 84550; 96401; J9041

== ENCOUNTER 2018-08-31 10:34 | Day surgery (SDC) | payer MEDICARE, OTHER ==
[~2018-08-31 10:34] MED LIST changes: +Zoledronic Acid 4 MG in Sodium Chloride 0.9% 100 ML IVPB SCH
[2018-08-31] MEDS ORDERED: Sodium Chloride 0.9% 20 ML ONE (10:44)
== END 2018-08-31 13:22 | disposition home or self-care (01) ==
LOC: ONC/OP 10:34
PROVIDERS: ATTEND Internal Medicine Hematology & Oncology
DX: C90.00 Multiple myeloma not having achieved remission (principal)
CPT/HCPCS: 82565; 96365; 96401; J3489; J3490; J9041

== ENCOUNTER 2018-09-14 11:12 | Day surgery (SDC) | payer OTHER ==
[~2018-09-14 11:12] MED LIST changes: -Zoledronic Acid 4 MG in Sodium Chloride 0.9% 100 ML IVPB SCH
[2018-09-14 12:38] VITALS: BP 134/78; TEMP 98.6
== END 2018-09-14 14:40 | disposition home or self-care (01) ==
LOC: ONC/OP 11:12
PROVIDERS: ATTEND Internal Medicine Hematology & Oncology
DX: Z51.11 Encounter for antineoplastic chemotherapy (principal); C90.00 Multiple myeloma not having achieved remission
CPT/HCPCS: 96401; J9041

== ENCOUNTER 2018-09-28 10:43 | Day surgery (SDC) | payer OTHER ==
[~2018-09-28 10:43] MED LIST changes: -Dexamethasone 4 MG TAB PO SCH
== END 2018-09-28 15:42 | disposition home or self-care (01) ==
LOC: ONC/OP 10:43
PROVIDERS: ATTEND Internal Medicine Hematology & Oncology
DX: Z51.11 Encounter for antineoplastic chemotherapy (principal); C90.00 Multiple myeloma not having achieved remission
CPT/HCPCS: 96401; J9041

== ENCOUNTER 2018-10-12 10:51 | Day surgery (SDC) | payer MEDICARE, OTHER ==
[~2018-10-12 10:51] MED LIST changes: -valACYclovir 500 MG TAB PO SCH
== END 2018-10-12 12:34 | disposition home or self-care (01) ==
LOC: ONC/OP 10:51
PROVIDERS: ATTEND Internal Medicine Hematology & Oncology
DX: Z51.12 Encounter for antineoplastic immunotherapy (principal); C90.00 Multiple myeloma not having achieved remission
CPT/HCPCS: 96401; J9041

== ENCOUNTER 2018-10-26 10:03 | Day surgery (SDC) | payer MEDICARE, OTHER ==
[~2018-10-26 10:03] MED LIST changes: +valACYclovir 500 MG TAB PO SCH
[2018-10-26 11:03] VITALS: BP 120/81; TEMP 98.4
== END 2018-10-26 15:15 | disposition home or self-care (01) ==
LOC: ONC/OP 10:03
PROVIDERS: ATTEND Internal Medicine Hematology & Oncology
DX: Z51.11 Encounter for antineoplastic chemotherapy (principal); C90.00 Multiple myeloma not having achieved remission
CPT/HCPCS: 96401; J9041

== ENCOUNTER 2018-11-09 09:30 | Day surgery (SDC) | payer OTHER ==
[~2018-11-09 09:30] MED LIST changes: +ADMIXTURE FEE CHEMO SC SCH; -ADMIXTURE FEE SC SCH
[2018-11-09 11:04] VITALS: BP 124/70; TEMP 98.4
== END 2018-11-09 11:04 | disposition home or self-care (01) ==
LOC: ONC/OP 09:30
PROVIDERS: ATTEND Internal Medicine Hematology & Oncology
DX: Z51.11 Encounter for antineoplastic chemotherapy (principal); C90.00 Multiple myeloma not having achieved remission
CPT/HCPCS: 96401; J9041

== ENCOUNTER 2018-11-23 10:43 | Day surgery (SDC) | payer OTHER ==
[~2018-11-23 10:43] MED LIST changes: +Zoledronic Acid 4 MG in Sodium Chloride 0.9% 100 ML IVPB SCH; -valACYclovir 500 MG TAB PO SCH
== END 2018-11-23 12:30 | disposition home or self-care (01) ==
LOC: ONC/OP 10:43
PROVIDERS: ATTEND Internal Medicine Hematology & Oncology
DX: Z51.11 Encounter for antineoplastic chemotherapy (principal); C90.00 Multiple myeloma not having achieved remission
CPT/HCPCS: 96365; 96401; J3489; J3490; J9041

== ENCOUNTER 2018-12-07 10:37 | Day surgery (SDC) | payer OTHER ==
[~2018-12-07 10:37] MED LIST changes: -Zoledronic Acid 4 MG in Sodium Chloride 0.9% 100 ML IVPB SCH
[2018-12-07 11:31] VITALS: BP 137/88; TEMP 98.5
== END 2018-12-07 11:34 | disposition home or self-care (01) ==
LOC: ONC/OP 10:37
PROVIDERS: ATTEND Internal Medicine Hematology & Oncology
DX: Z51.11 Encounter for antineoplastic chemotherapy (principal); C90.00 Multiple myeloma not having achieved remission
CPT/HCPCS: 96401; J9041

== ENCOUNTER 2018-12-21 10:09 | Day surgery (SDC) | payer OTHER ==
[2018-12-21 13:46] VITALS: BP 144/67; TEMP 97.6
== END 2018-12-21 13:55 | disposition home or self-care (01) ==
LOC: ONC/OP 10:09
PROVIDERS: ATTEND Internal Medicine Hematology & Oncology
DX: Z51.11 Encounter for antineoplastic chemotherapy (principal); C90.00 Multiple myeloma not having achieved remission
CPT/HCPCS: 96401; J9041

== ENCOUNTER 2019-01-04 11:48 | Day surgery (SDC) | payer OTHER ==
[2019-01-04 12:15] VITALS: BP 135/78; TEMP 97.7
== END 2019-01-04 13:16 | disposition home or self-care (01) ==
LOC: ONC/OP 11:48
PROVIDERS: ATTEND Internal Medicine Hematology & Oncology
DX: Z51.11 Encounter for antineoplastic chemotherapy (principal); C90.00 Multiple myeloma not having achieved remission
CPT/HCPCS: 96401; J9041

== ENCOUNTER 2019-01-18 09:49 | Day surgery (SDC) | payer OTHER ==
[2019-01-18 10:39] VITALS: BP 127/69; TEMP 98.6
== END 2019-01-18 12:29 | disposition home or self-care (01) ==
LOC: ONC/OP 09:49
PROVIDERS: ATTEND Internal Medicine Hematology & Oncology
DX: Z51.11 Encounter for antineoplastic chemotherapy (principal); C90.00 Multiple myeloma not having achieved remission
CPT/HCPCS: 96401; J9041

== ENCOUNTER 2019-02-01 09:47 | Day surgery (SDC) | payer OTHER ==
[2019-02-01 10:45] LABS: ALT (SGPT) 7 U/L (8-55); AST (SGOT) 11 U/L (5-34); Albumin 3.6 g/dL (3.4-4.8); Alkaline Phosphatase 60 U/L (40-110); Anion Gap 9 mmol/L (10-20); BUN (Urea Nitrogen) 7 mg/dL (9.8-20.1); Bilirubin, Total 0.8 mg/dL (0.2-1.2); Calc. Creatinine Clearance 0 mL/min (70-130); Calcium 9.4 mg/dL (7.8-10.44); Carbon Dioxide 27 mmol/L (23-31); Chloride 108 mmol/L (98-107); Estimated GFR-MDRD 90; Globulin 2.9 g/dL (2.4-3.5); Glucose 87 mg/dL (80-115); Potassium 3.9 mmol/L (3.5-5.1); Protein, Total 6.5 g/dL (6.0-8.3); Sodium 140 mmol/L (136-145)
[2019-02-01 11:14] VITALS: BP 129/64; TEMP 98
== END 2019-02-01 11:14 | disposition home or self-care (01) ==
LOC: ONC/OP 09:47
PROVIDERS: ATTEND Internal Medicine Hematology & Oncology
DX: Z51.11 Encounter for antineoplastic chemotherapy (principal); C90.00 Multiple myeloma not having achieved remission
CPT/HCPCS: 36415; 80053; 83615; 84550; 96401; J9041

== ENCOUNTER 2019-02-15 10:44 | Day surgery (SDC) | payer OTHER ==
[~2019-02-15 10:44] MED LIST changes: +Dexamethasone 4 MG TAB PO SCH; +Zoledronic Acid 4 MG in Sodium Chloride 0.9% 100 ML IVPB SCH; +valACYclovir 500 MG TAB PO SCH
[2019-02-15] MEDS ORDERED: Furosemide 20 MG TAB PO SCH (11:15)
[2019-02-15 16:00] VITALS: BP 127/74; TEMP 98.3
== END 2019-02-15 16:07 | disposition home or self-care (01) ==
LOC: ONC/OP 10:44
PROVIDERS: ATTEND Internal Medicine Hematology & Oncology
DX: Z51.11 Encounter for antineoplastic chemotherapy (principal); C90.00 Multiple myeloma not having achieved remission
CPT/HCPCS: 96365; 96401; J3489; J3490; J9041

== ENCOUNTER 2019-03-01 10:29 | Day surgery (SDC) | payer MEDICARE, OTHER ==
[~2019-03-01 10:29] MED LIST changes: -Zoledronic Acid 4 MG in Sodium Chloride 0.9% 100 ML IVPB SCH; -valACYclovir 500 MG TAB PO SCH
[2019-03-01 11:17] VITALS: BP 132/68; TEMP 98
== END 2019-03-01 11:20 | disposition home or self-care (01) ==
LOC: ONC/OP 10:29
PROVIDERS: ATTEND Internal Medicine Hematology & Oncology
DX: Z51.11 Encounter for antineoplastic chemotherapy (principal); C90.00 Multiple myeloma not having achieved remission
CPT/HCPCS: 96401; J9041

== ENCOUNTER 2019-03-15 10:15 | Day surgery (SDC) | payer MEDICARE, OTHER ==
[2019-03-15 10:45] VITALS: BP 162/68; TEMP 97.8
== END 2019-03-15 13:00 | disposition home or self-care (01) ==
LOC: ONC/OP 10:15
PROVIDERS: ATTEND Internal Medicine Hematology & Oncology
DX: Z51.11 Encounter for antineoplastic chemotherapy (principal); C90.00 Multiple myeloma not having achieved remission
CPT/HCPCS: 96401; J9041

== ENCOUNTER 2019-03-29 10:00 | Day surgery (SDC) | payer MEDICARE, OTHER ==
[~2019-03-29 10:00] MED LIST changes: +valACYclovir 500 MG TAB PO SCH
[2019-03-29 13:34] VITALS: BP 139/80; TEMP 98.3
== END 2019-03-29 13:34 | disposition home or self-care (01) ==
LOC: ONC/OP 10:00
PROVIDERS: ATTEND Internal Medicine Hematology & Oncology
DX: Z51.11 Encounter for antineoplastic chemotherapy (principal); C90.00 Multiple myeloma not having achieved remission
CPT/HCPCS: 36415; 83883; 96401; J9041

== ENCOUNTER 2019-04-12 09:42 | Day surgery (SDC) | payer MEDICARE, OTHER ==
[~2019-04-12 09:42] MED LIST changes: -Dexamethasone 4 MG TAB PO SCH; -valACYclovir 500 MG TAB PO SCH
[2019-04-12 10:29] VITALS: BP 141/71; TEMP 98
== END 2019-04-12 10:30 | disposition home or self-care (01) ==
LOC: ONC/OP 09:42
PROVIDERS: ATTEND Internal Medicine Hematology & Oncology
DX: Z51.11 Encounter for antineoplastic chemotherapy (principal); C90.00 Multiple myeloma not having achieved remission
CPT/HCPCS: 96401; J9041

== ENCOUNTER 2019-04-26 09:42 | Day surgery (SDC) | payer MEDICARE, OTHER ==
[~2019-04-26 09:42] MED LIST changes: +Dexamethasone 4 MG TAB PO SCH; +valACYclovir 500 MG TAB PO SCH
[2019-04-26 09:58] VITALS: BP 142/92; TEMP 98.2
== END 2019-04-26 10:46 | disposition home or self-care (01) ==
LOC: ONC/OP 09:42
PROVIDERS: ATTEND Internal Medicine Hematology & Oncology
DX: Z51.11 Encounter for antineoplastic chemotherapy (principal); C90.00 Multiple myeloma not having achieved remission
CPT/HCPCS: 96401; J9041

== ENCOUNTER 2019-05-10 09:52 | Day surgery (SDC) | payer MEDICARE, OTHER ==
[~2019-05-10 09:52] MED LIST changes: +Zoledronic Acid 4 MG in Sodium Chloride 0.9% 100 ML IVPB SCH
[2019-05-10 11:23] VITALS: BP 142/63
== END 2019-05-10 11:25 | disposition home or self-care (01) ==
LOC: ONC/OP 09:52
PROVIDERS: ATTEND Internal Medicine Hematology & Oncology
DX: Z51.11 Encounter for antineoplastic chemotherapy (principal); C90.00 Multiple myeloma not having achieved remission
CPT/HCPCS: 82565; 96372; J3489; J3490; J9041

== ENCOUNTER 2019-05-27 11:47 | Day surgery (SDC) | payer MEDICARE, OTHER ==
[~2019-05-27 11:47] MED LIST changes: -Zoledronic Acid 4 MG in Sodium Chloride 0.9% 100 ML IVPB SCH; -valACYclovir 500 MG TAB PO SCH
[2019-05-27 14:29] VITALS: BP 142/78; TEMP 97.8
== END 2019-05-27 14:43 | disposition home or self-care (01) ==
LOC: ONC/OP 11:47
PROVIDERS: ATTEND Internal Medicine Hematology & Oncology
DX: Z51.11 Encounter for antineoplastic chemotherapy (principal); C90.00 Multiple myeloma not having achieved remission
CPT/HCPCS: 36415; 80053; 82248; 83615; 83883; 84100; 84550; 96401; J9041

== ENCOUNTER 2019-06-14 09:57 | Day surgery (SDC) | payer MEDICARE, OTHER ==
[2019-06-14 10:58] VITALS: BP 152/77; TEMP 97.8
== END 2019-06-14 11:08 | disposition home or self-care (01) ==
LOC: ONC/OP 09:57
PROVIDERS: ATTEND Internal Medicine Hematology & Oncology
DX: Z51.11 Encounter for antineoplastic chemotherapy (principal); C90.00 Multiple myeloma not having achieved remission
CPT/HCPCS: 96401; J9041

== ENCOUNTER 2019-06-28 09:41 | Day surgery (SDC) | payer MEDICARE, OTHER ==
[2019-06-28 09:59] VITALS: BP 151/73; TEMP 98.5
== END 2019-06-28 12:07 | disposition home or self-care (01) ==
LOC: ONC/OP 09:41
PROVIDERS: ATTEND Internal Medicine Hematology & Oncology
DX: Z51.11 Encounter for antineoplastic chemotherapy (principal); C90.00 Multiple myeloma not having achieved remission
CPT/HCPCS: 96401; J9041

== ENCOUNTER 2019-07-12 10:33 | Day surgery (SDC) | payer MEDICARE, OTHER ==
[~2019-07-12 10:33] MED LIST changes: +valACYclovir 500 MG TAB PO SCH
[2019-07-12 11:04] VITALS: BP 127/74; TEMP 98.5
== END 2019-07-12 11:35 | disposition home or self-care (01) ==
LOC: ONC/OP 10:33
PROVIDERS: ATTEND Internal Medicine Hematology & Oncology
DX: Z51.11 Encounter for antineoplastic chemotherapy (principal); C90.00 Multiple myeloma not having achieved remission
CPT/HCPCS: 96401; J9041

== ENCOUNTER 2019-07-26 10:11 | Day surgery (SDC) | payer MEDICARE, OTHER ==
[~2019-07-26 10:11] MED LIST changes: +Zoledronic Acid 4 MG in Sodium Chloride 0.9% 100 ML IVPB SCH
[2019-07-26 10:43] LABS: #Eosinphils 0.1 thou/uL (0.0-0.7); #Lymphocytes 0.8 thou/uL (1.20-3.40); #Monocytes 0.4 thou/uL (0.11-0.59); #Neutrophils 3.9 thou/uL (1.40-6.50); %Basophils 0.2 % (0.0-1.0); %Eosinophils 2.3 % (0.0-10.0); %Monocytes 7.1 % (0.0-10.0); %Neutrophils 74.4 % (42.0-75.0); Hemoglobin 13.5 g/dL (12.0-16.0); Mean Corpuscular HGB CONC 34.3 g/dL (32.0-36.0); Mean Corpuscular Hemoglobin 37.9 pg (27.0-31.0); Mean Platelet Volume 8.3 fL (7.4-10.4); Platelet Count 159 thou/uL (130-400); Red Blood Cell (RBC) Count 3.55 mill/uL (4.20-5.40); White Blood Cell (WBC) Count 5.2 thou/uL (4.8-10.8)
[2019-07-26 10:59] LABS: ALT (SGPT) 22 U/L (8-55); AST (SGOT) 23 U/L (5-34); Alkaline Phosphatase 58 U/L (40-110); Anion Gap 14 mmol/L (10-20); BUN (Urea Nitrogen) 12 mg/dL (9.8-20.1); Bilirubin, Total 0.7 mg/dL (0.2-1.2); Calc. Creatinine Clearance 97 mL/min (70-130); Calcium 9.3 mg/dL (7.8-10.44); Carbon Dioxide 24 mmol/L (23-31); Chloride 108 mmol/L (98-107); Estimated GFR-MDRD 88; Globulin 2.4 g/dL (2.4-3.5); Glucose 86 mg/dL (80-115); Protein, Total 6.4 g/dL (6.0-8.3); Sodium 142 mmol/L (136-145); Uric Acid 5.8 mg/dL (2.6-6.0)
[2019-07-26 11:28] VITALS: BP 148/74; TEMP 98
[2019-07-26] MEDS ORDERED: Sodium Chloride 0.9% 20 ML ONE (11:31)
[2019-07-29 14:37] LABS: A/G Ratio 1.4 (0.7-1.7); Albumin 3.5 g/dL (2.9-4.4); Alpha 1 0.2 g/dL (0.0-0.4); Alpha 2 0.8 g/dL (0.4-1.0); Beta 0.9 g/dL (0.7-1.3); Gamma 0.6 g/dL (0.4-1.8); Globulin, Total 2.5 g/dL (2.2-3.9); M-Spike 0.1 g/dL (Not Observed)
== END 2019-07-26 12:22 | disposition home or self-care (01) ==
LOC: ONC/OP 10:11
PROVIDERS: ATTEND Internal Medicine Hematology & Oncology
DX: Z51.11 Encounter for antineoplastic chemotherapy (principal); C90.00 Multiple myeloma not having achieved remission
CPT/HCPCS: 80053; 83615; 84165; 84550; 85025; 96365; 96401; J3489; J3490; J9041

== ENCOUNTER → 2019-08-09 | Day surgery (SDC) | payer MEDICARE, OTHER ==
[~2019-08-09] MED LIST changes: -Dexamethasone 4 MG TAB PO SCH; -Zoledronic Acid 4 MG in Sodium Chloride 0.9% 100 ML IVPB SCH; -valACYclovir 500 MG TAB PO SCH
[2019-08-09 10:27] VITALS: BP 134/72; TEMP 97.8
== END ==
LOC: ONC/OP 09:54
PROVIDERS: ATTEND Internal Medicine Hematology & Oncology
DX: Z51.11 Encounter for antineoplastic chemotherapy (principal); C90.00 Multiple myeloma not having achieved remission
CPT/HCPCS: 96401; J9041

== ENCOUNTER 2019-08-23 10:05 | Day surgery (SDC) | payer MEDICARE, OTHER ==
[2019-08-23 12:09] VITALS: BP 137/70; TEMP 97.8
== END 2019-08-23 13:38 | disposition home or self-care (01) ==
LOC: ONC/OP 10:05
PROVIDERS: ATTEND Internal Medicine Hematology & Oncology
DX: Z51.11 Encounter for antineoplastic chemotherapy (principal); C90.00 Multiple myeloma not having achieved remission
CPT/HCPCS: 96401; J9041

== ENCOUNTER 2019-09-06 10:26 | Day surgery (SDC) | payer MEDICARE, OTHER ==
[~2019-09-06 10:26] MED LIST changes: +Dexamethasone 4 MG TAB PO SCH; +valACYclovir 500 MG TAB PO SCH
[2019-09-06 10:30] VITALS: BP 143/73; TEMP 98.2
== END 2019-09-06 11:23 | disposition home or self-care (01) ==
LOC: ONC/OP 10:26
PROVIDERS: ATTEND Internal Medicine Hematology & Oncology
DX: Z51.11 Encounter for antineoplastic chemotherapy (principal); C90.00 Multiple myeloma not having achieved remission
CPT/HCPCS: 96401; J9041

== ENCOUNTER 2019-09-20 10:15 | Day surgery (SDC) | payer MEDICARE, OTHER ==
[~2019-09-20 10:15] MED LIST changes: -Dexamethasone 4 MG TAB PO SCH; -valACYclovir 500 MG TAB PO SCH
[2019-09-20 11:19] VITALS: BP 127/70; TEMP 98.1
[2019-09-20 11:48] LABS: ALT (SGPT) 13 U/L (8-55); AST (SGOT) 13 U/L (5-34); Albumin 3.9 g/dL (3.4-4.8); Alkaline Phosphatase 53 U/L (40-110); Anion Gap 12 mmol/L (10-20); BUN (Urea Nitrogen) 9 mg/dL (9.8-20.1); Bilirubin, Total 0.7 mg/dL (0.2-1.2); Calc. Creatinine Clearance 97 mL/min (70-130); Carbon Dioxide 23 mmol/L (23-31); Chloride 108 mmol/L (98-107); Estimated GFR-MDRD 88; Globulin 2.1 g/dL (2.4-3.5); Glucose 86 mg/dL (80-115); Potassium 3.8 mmol/L (3.5-5.1); Sodium 139 mmol/L (136-145); Uric Acid 5.7 mg/dL (2.6-6.0)
[2019-09-20 12:09] LABS: #Lymphocytes 0.8 thou/uL (1.20-3.40); #Monocytes 0.3 thou/uL (0.11-0.59); #Neutrophils 3.4 thou/uL (1.40-6.50); %Eosinophils 0.7 % (0.0-10.0); %Lymphocytes 17.9 % (21.0-51.0); %Monocytes 7.2 % (0.0-10.0); %Neutrophils 74.2 % (42.0-75.0); Mean Corpuscular Hemoglobin 35.8 pg (27.0-31.0); Mean Platelet Volume 8.2 fL (7.4-10.4); Platelet Count 150 thou/uL (130-400); RBC Distribution Width 13.9 % (11.5-14.5); Red Blood Cell (RBC) Count 3.64 mill/uL (4.20-5.40); White Blood Cell (WBC) Count 4.6 thou/uL (4.8-10.8)
[2019-09-20 12:32] LABS: MDiff Complete? YES; Macrocytosis SLIGHT = 6-15 cells (100X) (0-5/hpf); Platelet Morphology Comment Appears Adequate; Polychromasia SLIGHT = 2-3 cells (100X) (0-2/hpf)
[2019-09-23 17:37] LABS: A/G Ratio 1.4 (0.7-1.7); Albumin 3.4 g/dL (2.9-4.4); Alpha 1 0.2 g/dL (0.0-0.4); Alpha 2 0.8 g/dL (0.4-1.0); Beta 0.8 g/dL (0.7-1.3); Gamma 0.6 g/dL (0.4-1.8); Globulin, Total 2.4 g/dL (2.2-3.9); M-Spike Not Observed g/dL (Not Observed)
== END 2019-09-20 11:24 | disposition home or self-care (01) ==
LOC: ONC/OP 10:15
PROVIDERS: ATTEND Internal Medicine Hematology & Oncology
DX: Z51.11 Encounter for antineoplastic chemotherapy (principal); C90.00 Multiple myeloma not having achieved remission
CPT/HCPCS: 80053; 84165; 84550; 85025; 96401; J9041

== ENCOUNTER 2019-09-30 13:22 | Inpatient (IN) | payer MEDICARE, OTHER ==
[2019-09-30] MEDS ORDERED: Iopamidol-370 76% 500 ML 1 ML ONE (13:41)
[2019-09-30] MEDS ORDERED: Ondansetron ODT 4 MG TAB ONE (13:46)
[2019-09-30] MEDS ORDERED: Acetaminophen 500 MG TAB ONE ×2 (13:46→14:28)
[2019-09-30 14:09] LABS: #Lymphocytes 0.6 thou/uL (1.20-3.40); #Monocytes 0.2 thou/uL (0.11-0.59); #Neutrophils 5.5 thou/uL (1.40-6.50); %Basophils 0.1 % (0.0-1.0); %Eosinophils 0.3 % (0.0-10.0); %Monocytes 3.8 % (0.0-10.0); %Neutrophils 86.9 % (42.0-75.0); Hemoglobin 11.5 g/dL (12.0-16.0); Mean Corpuscular HGB CONC 33.9 g/dL (32.0-36.0); Mean Corpuscular Hemoglobin 35.4 pg (27.0-31.0); Mean Platelet Volume 8.6 fL (7.4-10.4); Platelet Count 164 thou/uL (130-400); RBC Distribution Width 13.3 % (11.5-14.5); Red Blood Cell (RBC) Count 3.25 mill/uL (4.20-5.40); White Blood Cell (WBC) Count 6.3 thou/uL (4.8-10.8)
[2019-09-30 14:31] LABS: ALT (SGPT) 75 U/L (8-55); AST (SGOT) 102 U/L (5-34); Albumin 3.4 g/dL (3.4-4.8); Alkaline Phosphatase 61 U/L (40-110); Anion Gap 17 mmol/L (10-20); BUN (Urea Nitrogen) 15 mg/dL (9.8-20.1); Bilirubin, Total 1.6 mg/dL (0.2-1.2); Calc. Creatinine Clearance 0 mL/min (70-130); Calcium 8.5 mg/dL (7.8-10.44); Carbon Dioxide 20 mmol/L (23-31); Chloride 101 mmol/L (98-107); Estimated GFR-MDRD 81; Globulin 3.2 g/dL (2.4-3.5); Glucose 99 mg/dL (80-115); Potassium 3.6 mmol/L (3.5-5.1); Protein, Total 6.6 g/dL (6.0-8.3); Sodium 134 mmol/L (136-145)
--- NOTE | 2019-09-30 14:33 | RAD ---
PORTABLE CHEST: HISTORY: Weakness. On chemotherapy. History of melanoma. COMPARISON: 09/03/2017 chest x-ray. FINDINGS: Borderline cardiomegaly. Vascular congestion. Diffuse alveolar edema and/or infiltrate throughout t he right lung. Interstitial and alveolar infiltrate in the left mid and lower lung. IMPRESSION: Bilateral infiltrates more extensive in the right lung. The asymmetry would suggest an inflammatory process rather than edema. POS: [facility]
[2019-09-30 14:34] LABS: Bacteria/HPF None Seen HPF (None Seen); Bilirubin 1+ (Negative); Blood, Urine Trace (Negative); Glucose, Urine (Dipstick) 30 mg/dL (Negative); Ketone, Urine Trace mg/dL (Negative); Leukocyte Negative Leu/uL (Negative); Nitrite Negative (Negative); Protein, Urine (Dipstick) 100 mg/dL (Neg-Trace); RBC/HPF 0-3 HPF (0-3); Squamous Epithelial 0-3 HPF (0-3); Urobilinogen 3 mg/dL (Less than 2); pH, Urine 5.5 (5.0-9.0)
[2019-09-30 14:37] LABS: Clarity Hazy (Clear)
[2019-09-30] MEDS ORDERED: Acetaminophen 325 MG TAB PO PRN (16:33)
[2019-09-30] MEDS ORDERED: Ondansetron PF 4 MG/2 ML Vial IVP PRN (16:33)
[2019-09-30] MEDS ORDERED: Guaifenesin DM 100-10/5 ML UDCUP PO PRN (16:33)
[2019-09-30] MEDS ORDERED: Acetaminophen 650 MG Suppository PR PRN (16:33)
[2019-09-30] MEDS ORDERED: Calcium Carbonate 500 MG ChewTAB PO PRN (16:33)
[2019-09-30] MEDS ORDERED: Ondansetron ODT 4 MG TAB PO PRN (16:33)
--- NOTE | 2019-09-30 16:42 | CT ---
CT PULMONARY ANGIOGRAM WITH IV CONTRAST AND 3-D POSTPROCESSING: HISTORY:Shortness of breath,COVID 19 FINDINGS: There is good contrast opacification of the pulmonary arterial vasculature without filling defects to suggest pulmonary embolism. The thoracic aorta is without aneurysm . No pleural or pericardial effusions are seen. There are patchy groundglass opacities bilaterally. There are degenerative changes in the spine. IMPRESSION: 1. No CT evidence of pulmonary embolism. 2. COVID19 pneumonia
[2019-09-30] MEDS ORDERED: Sodium Chloride 0.9% 1,000 ML IV SCH (16:45)
[2019-09-30] MEDS ORDERED: Ascorbic Acid 500 mg Chewable Tablet PO SCH (17:15)
[2019-09-30] MEDS ORDERED: Dexamethasone 4 mg/ml Vial SLOW IVP SCH (17:15)
[2019-09-30] MEDS ORDERED: Zinc Sulfate 220 MG CAP PO SCH (17:15)
[2019-09-30] MEDS ORDERED: Enoxaparin Sodium 40 MG/0.4 ML SYRINGE SC SCH (17:15)
--- NOTE | 2019-09-30 17:57 | HP ---
PRIMARY CARE PHYSICIAN: MICHOACANO Huerta ONCOLOGIST: Dr. Gastelum. CHIEF COMPLAINT: Generalized weakness x2 days. HISTORY OF PRESENT ILLNESS: The patient is a 64-year-old female with a past medical history significant for melanoma, currently on chemotherapy, treated by Dr. Gastelum, hypertension, hyperlipidemia, who presents to the ER for the above complaint. The patient reports having generalized weakness over the last two days with associated nonproductive cough and shortness of breath. The patient denies any chest pain or heart palpitation or swelling to her lower extremities. She does, however, report pain to her bilateral lower extremities. She denies any recent trauma or falls. She is not on any blood thinners. She reports diarrhea, no blood in stools. She denies any abdominal pain, nausea, vomiting, She denies any dysuria. She has no known sick contacts. She has not had any recent travel. In the ER, vital signs were taken. The patient was found to be febrile, temperature 101.7, normal blood pressure, tachycardic with a heart rate of 109, tachypneic, respirations 22 and 89% on room air. EKG, sinus tach, 102, no ST elevations. WBCs were 6.3. The patient had lymphopenia. Her lactic acid was 1.4. She did have some abnormal LFTs with a total bilirubin of 1.6, AST of 102, an ALT of 75. UA showed bilirubin, urobilinogen, ketones, little bit of blood, small amount of protein with no bacteria. There is no leukocyte esterase. The patient was given Zofran and Tylenol and will be admitted to the floor. PAST MEDICAL HISTORY: 1. Melanoma, currently on chemotherapy followed by Dr. Gastelum. 2. Hypertension. 3. Hyperlipidemia. PAST SURGICAL HISTORY: None. SOCIAL HISTORY: The patient lives at home with family. Smokes a half pack per day. She drinks alcohol socially. She denies any illicit drug use. FAMILY HISTORY: Noncontributory to this case. ALLERGIES: NO KNOWN DRUG ALLERGIES. HOME MEDICATIONS: Unable to reconcile home medications at bedside. REVIEW OF SYSTEMS: All review of systems are negative unless otherwise stated in the HPI. PHYSICAL EXAMINATION: VITAL SIGNS: Temperature 99.1, blood pressure 106/83, pulse 95, respirations 31. She is 93% on 3 L nasal cannula. No pain. CONSTITUTIONAL: The patient is alert and oriented to person, place, and time. She appears uncomfortable and is ill-appearing at this time. HEAD: Atraumatic and normocephalic. EYES: PERRLA. Extraocular muscles intact. Sclerae nonicteric. NECK: Full range of motion. No cervical spinous tenderness. No JVD. No cervical adenopathy. ENT: EACs clear bilaterally. TMs intact bilaterally. Nares patent bilaterally. Oropharynx is clear. Uvula is midline. Tacky mucous membranes. No oral lesions. RESPIRATORY/CHEST: Respirations are even, mildly labored, scattered rhonchi throughout. No rales, no wheezes. CARDIOVASCULAR: S1, S2 appreciated. No murmurs, rubs, or gallops. ABDOMEN: Soft, nontender, nondistended. Active bowel sounds. No guarding. No rigidity. No rebound. Negative Rovsing sign. Negative St sign. BACK: Full range of motion. No central spinous tenderness. No CVA tenderness. EXTREMITIES: Bilateral upper extremities, full range of motion, normal strength , sensation intact. Palpable radial pulses. Lower extremities, full range of motion. Normal strength. Sensation intact. Palpable pedal pulses. No swelling. NEUROLOGIC: The patient is alert and oriented to person, place, and time. She moves all extremities. No focal motor deficits. PSYCHIATRIC: Normal affect. A and O x3. LABS AND DIAGNOSTICS: EKG sinus tach, 102 beats per minute. No ST elevations. Chest x-ray showed bilateral infiltrates, more extensive on the right lung. Asymmetry would suggest inflammatory process rather than edema. Sodium 134, potassium 3.6, chloride 101, carbon dioxide 20, BUN 15, creatinine 0.85, glucose 99, lactic acid 1.4, calcium 8.5, total bilirubin 1.6, AST 102, ALT 75, alp 61. Initial troponin 0.010. WBC 6.3, hemoglobin 11.5, hematocrit 34, platelets 164. UA; 100 protein, trace ketones, trace blood, 1+ bilirubin, 3 urobilinogen. COVID positive. IMPRESSION AND PLAN: 1. Acute hypoxic respiratory failure. We will admit the patient to telemetry floor inpatient status. Expected length of stay at least two midnights. The patient presented febrile, tachycardic, tachypneic, lactic acid 1.4. WBC 6.3. Chest x- ray consistent for inflammatory process. The patient was positive for COVID. Blood cultures and urine cultures are pending. We will start azithromycin and Rocephin. We will track acute phase reactants. We will order a CTA of the chest to rule out PE. We will start dexamethasone 6 mg daily. We will recheck lactic acid in the morning with a CMP and a CBC. We will place the patient on droplet precautions. 2. Sepsis secondary to COVID-19. The patient presented febrile, tachycardic and tachypneic. Currently upon exam, the patient's vital signs have improved. She is borderline hypotensive and tachycardic with systolic blood pressure in the 90s, MAP in the 60s, heart rate in the 90s. She is 93% on 3 L nasal cannula. Her lactic acid was 1.4. She has no history of heart failure. We will give gentle IV fluid resuscitation, evaluate between bags. We will recheck a lactic acid in the a.m. 3. COVID-[address] droplet precautions. We will start dexamethasone, azithromycin, and Rocephin for possible overlying superimposed bacterial infection. We will consult Infectious Disease. We will start dexamethasone, zinc, and vitamin C and supplemental oxygen as needed. 4. Melanoma. The patient is currently on chemotherapy with Dr. Gastelum. 5. Hypertension. The patient presented hypotensive. We do not know her home medications at this time. We will wait for the new reconcile and restart as needed. 6. Hyperlipidemia. We will restart the patient's home medications once reconciled. 7. Tobacco abuse. The patient does not desire to quit. Does not need NRT therapy at this time. We will sexual abuse counsellor tobacco cessation. 8. Lovenox for deep venous thrombosis prophylaxis. 9. Protonix for gastrointestinal prophylaxis. 10. The patient is a full code. 11. Contact is Shola Turcios, her , [phone]. 12. Discussed this case with Dr. Ceron. Job ID: [id number] [facility]
[2019-09-30] MEDS ORDERED: Azithromycin 500 MG in Sodium Chloride 0.9% 250 ML 250 ML IVPB SCH (18:00)
[2019-09-30 18:57] LABS: Troponin I 0.022 ng/mL (< 0.028)
[2019-09-30 19:30] VITALS: BMI 29.2
[2019-09-30] MEDS: Sodium Chloride 0.9% 1,000 ML IV SCH (19:53)
[2019-09-30] MEDS: Famotidine 20 MG TAB PO SCH (20:01)
[2019-09-30] MEDS: cefTRIAXone\\ROCEPHIN 1 GM in Sodium Chloride 0.9% 100 ML IVPB SCH (20:03)
[2019-09-30] MEDS: Famotidine/PF 20 mg/2ml Vial SLOW IVP SCH (20:35)
[2019-09-30] MEDS: Azithromycin 500 MG in Sodium Chloride 0.9% 250 ML 250 ML IVPB SCH (21:43)
[2019-10-01 05:26] LABS: #Lymphocytes 0.3 thou/uL (1.20-3.40); #Monocytes 0.2 thou/uL (0.11-0.59); #Neutrophils 5.9 thou/uL (1.40-6.50); %Basophils 0.2 % (0.0-1.0); %Eosinophils 0.1 % (0.0-10.0); %Lymphocytes 4.8 % (21.0-51.0); %Monocytes 3.3 % (0.0-10.0); %Neutrophils 91.6 % (42.0-75.0); Hemoglobin 10.4 g/dL (12.0-16.0); Mean Corpuscular HGB CONC 31.8 g/dL (32.0-36.0); Mean Corpuscular Hemoglobin 33.6 pg (27.0-31.0); Mean Platelet Volume 8.8 fL (7.4-10.4); Platelet Count 160 thou/uL (130-400); RBC Distribution Width 13.3 % (11.5-14.5); Red Blood Cell (RBC) Count 3.09 mill/uL (4.20-5.40); White Blood Cell (WBC) Count 6.4 thou/uL (4.8-10.8)
[2019-10-01 05:45] LABS: Lactic Acid 0.9 mmol/L (0.5-2.2)
[2019-10-01 05:50] LABS: ALT (SGPT) 59 U/L (8-55); AST (SGOT) 62 U/L (5-34); Alkaline Phosphatase 53 U/L (40-110); Anion Gap 12 mmol/L (10-20); BUN (Urea Nitrogen) 12 mg/dL (9.8-20.1); Bilirubin, Total 0.9 mg/dL (0.2-1.2); Calc. Creatinine Clearance 100 mL/min (70-130); Calcium 7.9 mg/dL (7.8-10.44); Carbon Dioxide 23 mmol/L (23-31); Chloride 104 mmol/L (98-107); Estimated GFR-MDRD Greater than 90; Globulin 2.8 g/dL (2.4-3.5); Glucose 104 mg/dL (80-115); Potassium 3.8 mmol/L (3.5-5.1); Protein, Total 5.8 g/dL (6.0-8.3); Sodium 135 mmol/L (136-145)
[2019-10-01] MEDS: Famotidine/PF 20 mg/2ml Vial SLOW IVP SCH ×2 (07:08→20:03)
[2019-10-01] MEDS: Ascorbic Acid 500 mg Chewable Tablet PO SCH (08:12)
[2019-10-01] MEDS: Famotidine 20 MG TAB PO SCH ×2 (08:12→20:03)
[2019-10-01] MEDS: Zinc Sulfate 220 MG CAP PO SCH (08:13)
[2019-10-01] MEDS: Enoxaparin Sodium 40 MG/0.4 ML SYRINGE SC SCH (08:13)
[2019-10-01] MEDS: Sodium Chloride 0.9% 1,000 ML IV SCH (08:13)
[2019-10-01] MEDS: Dexamethasone 4 mg/ml Vial SLOW IVP SCH (08:13)
[2019-10-01] MEDS ORDERED: Prevnar 13-Val Conj/PF 0.5 ML SYRINGE IM ONE (09:00)
[2019-10-01] MEDS: cefTRIAXone\\ROCEPHIN 1 GM in Sodium Chloride 0.9% 100 ML IVPB SCH (16:56)
[2019-10-01] MEDS: Azithromycin 500 MG in Sodium Chloride 0.9% 250 ML 250 ML IVPB SCH (20:03)
[2019-10-02] MEDS: Ascorbic Acid 500 mg Chewable Tablet PO SCH (08:41)
[2019-10-02] MEDS: Zinc Sulfate 220 MG CAP PO SCH (08:41)
[2019-10-02] MEDS: Dexamethasone 4 mg/ml Vial SLOW IVP SCH (08:41)
[2019-10-02] MEDS: Famotidine 20 MG TAB PO SCH ×2 (08:41→20:20)
[2019-10-02] MEDS: Enoxaparin Sodium 40 MG/0.4 ML SYRINGE SC SCH (08:44)
[2019-10-02] MEDS: Famotidine/PF 20 mg/2ml Vial SLOW IVP SCH (08:45)
[2019-10-02] MEDS ORDERED: Lenalidomide [Revlimid] PO SCH (09:00)
[2019-10-02] MEDS ORDERED: LENALIDOMIDE 25 MG PO SCH (09:00)
--- NOTE | 2019-10-02 15:14 | PDOC.HOSPP ---
- Subjective Encounter Date: 10/01/19 Encounter Time: 09:00 Subjective: no overnight events. this morning feeling well, breathing and satting well on RA with no complaints. - Objective Vital Signs & Weight: Vital Signs (12 hours) Temp Pulse Resp BP BP Pulse Ox 10/02/19 12:15 98.0 F 70 24 H 136/73 94 L 10/02/19 09:01 97.9 F 76 26 H 118/72 92 L Weight Admit Weight 187 lb 2.56 oz Weight 190 lb I&O: 10/01/19 10/02/19 10/03/19 06:59 06:59 06:59 Intake Total 1226 2720 440 Output Total 1000 1300 Balance 226 1420 440 Result Diagrams: 10/01/19 05:05 10/01/19 05:05 Hospitalist ROS - Review of Systems Constitutional: denies: fever, chills, sweats Respiratory: denies: cough, dry, shortness of breath Cardiovascular: denies: chest pain, palpitations Gastrointestinal: denies: nausea, vomiting, abdominal pain - Medication Medications: Active Medications Generic Name Dose Route Start Last Admin Trade Name Elvinq PRN Reason Stop Dose Admin Ascorbic Acid 1,000 mg 10/01/19 09:00 10/02/19 08:41 Vitamin C PO 1,000 mg DAILY CATA Administration Dexamethasone 6 mg 10/01/19 09:00 10/02/19 08:41 Decadron SLOW IVP 6 mg DAILY CATA Administration Enoxaparin Sodium 40 mg 10/01/19 09:00 10/02/19 08:44 Lovenox SC 40 mg 0900 CATA Administration Famotidine 20 mg 09/30/19 21:00 10/02/19 08:45 Pepcid SLOW IVP Not Given Q12HR CATA Famotidine 20 mg 09/30/19 21:00 10/02/19 08:41 Pepcid PO 20 mg BID CATA Administration Ceftriaxone Sodium 1 gm/ 100 mls @ 200 mls/hr 09/30/19 17:00 10/01/19 16:56 Sodium Chloride IVPB 100 mls Q24HR CATA Administration Azithromycin 500 mg/ Sodium 250 mls @ 250 mls/hr 09/30/19 21:00 10/01/19 20: 03 Chloride IVPB 250 mls 2100 CATA Administration Zinc Sulfate 220 mg 10/01/19 09:00 10/02/19 08:41 Zinc Sulfate PO 220 mg DAILY CATA Administration - Exam General Appearance: NAD, awake alert Neck: no JVD Heart: RRR, no murmur, no gallops, no rubs Respiratory: CTAB, no wheezes, no rales, no ronchi Gastrointestinal: soft, non-tender, non-distended, normal bowel sounds Extremities: no edema Psychiatric: normal affect, normal behavior, A&O x 3 Hosp A/P - Plan #covid pneumonia doing well, high risk for complications, high inflammatory markers -continue decadron -ID consulted #Melanoma on chemo -chemo continued oncology consulted #HTN BP well controlled Full code GI PPx: No Ix DVT PPx: Lovenox
--- NOTE | 2019-10-02 15:21 | PDOC.HOSPP ---
- Subjective Encounter Date: 10/02/19 Encounter Time: 09:00 Subjective: no overnight events. this morning, feeling well and has no complaints. - Objective Vital Signs & Weight: Vital Signs (12 hours) Temp Pulse Resp BP BP Pulse Ox 10/02/19 12:15 98.0 F 70 24 H 136/73 94 L 10/02/19 09:01 97.9 F 76 26 H 118/72 92 L Weight Admit Weight 187 lb 2.56 oz Weight 190 lb I&O: 10/01/19 10/02/19 10/03/19 06:59 06:59 06:59 Intake Total 1226 2720 440 Output Total 1000 1300 Balance 226 1420 440 Result Diagrams: 10/01/19 05:05 10/01/19 05:05 Hospitalist ROS - Review of Systems Constitutional: denies: fever, chills, sweats Respiratory: denies: cough, dry, shortness of breath Cardiovascular: denies: chest pain, palpitations Gastrointestinal: denies: nausea, vomiting, abdominal pain Genitourinary: denies: dysuria, frequency, hematuria - Medication Medications: Active Medications Generic Name Dose Route Start Last Admin Trade Name Freq PRN Reason Stop Dose Admin Ascorbic Acid 1,000 mg 10/01/19 09:00 10/02/19 08:41 Vitamin C PO 1,000 mg DAILY CATA Administration Dexamethasone 6 mg 10/01/19 09:00 10/02/19 08:41 Decadron SLOW IVP 6 mg DAILY CATA Administration Enoxaparin Sodium 40 mg 10/01/19 09:00 10/02/19 08:44 Lovenox SC 40 mg 0900 CATA Administration Famotidine 20 mg 09/30/19 21:00 10/02/19 08:45 Pepcid SLOW IVP Not Given Q12HR CATA Famotidine 20 mg 09/30/19 21:00 10/02/19 08:41 Pepcid PO 20 mg BID CATA Administration Ceftriaxone Sodium 1 gm/ 100 mls @ 200 mls/hr 09/30/19 17:00 10/01/19 16:56 Sodium Chloride IVPB 100 mls Q24HR CATA Administration Azithromycin 500 mg/ Sodium 250 mls @ 250 mls/hr 09/30/19 21:00 10/01/19 20: 03 Chloride IVPB 250 mls 2100 CATA Administration Zinc Sulfate 220 mg 10/01/19 09:00 10/02/19 08:41 Zinc Sulfate PO 220 mg DAILY CATA Administration - Exam General Appearance: NAD, awake alert Neck: no JVD Heart: RRR, no murmur, no gallops Respiratory: CTAB, no wheezes, no rales, no ronchi Gastrointestinal: soft, non-tender, non-distended, normal bowel sounds Extremities: no cyanosis, no clubbing, no edema Psychiatric: normal affect, normal behavior, A&O x 3 Hosp A/P - Plan #covid pneumonia doing well, high risk for complications, high inflammatory markers -continue decadron -ID consulted #Melanoma on chemo -chemo continued oncology consulted #HTN BP well controlled Full code GI PPx: No Ix DVT PPx: Lovenox
[2019-10-02] MEDS: Simvastatin 5 MG TAB PO SCH (16:44)
[2019-10-02] MEDS: cefTRIAXone\\ROCEPHIN 1 GM in Sodium Chloride 0.9% 100 ML IVPB SCH (16:44)
[2019-10-02] MEDS ORDERED: Non-Formulary Item 1 EACH (Lovastatin [Lovastatin] 20 MG) PO SCH (17:00)
[2019-10-02] MEDS: Azithromycin 500 MG in Sodium Chloride 0.9% 250 ML 250 ML IVPB SCH (20:20)
[2019-10-03] MEDS: Ascorbic Acid 500 mg Chewable Tablet PO SCH (07:36)
[2019-10-03] MEDS: Dexamethasone 4 mg/ml Vial SLOW IVP SCH (07:37)
[2019-10-03] MEDS: Enoxaparin Sodium 40 MG/0.4 ML SYRINGE SC SCH (07:37)
[2019-10-03] MEDS: Famotidine 20 MG TAB PO SCH (07:37)
[2019-10-03] MEDS: Zinc Sulfate 220 MG CAP PO SCH (07:37)
[2019-10-03 17:02] VITALS: BP 120/66; TEMP 98.2
[2019-10-03] MEDS: Simvastatin 5 MG TAB PO SCH (18:17)
[2019-10-03] MEDS: cefTRIAXone\\ROCEPHIN 1 GM in Sodium Chloride 0.9% 100 ML IVPB SCH (18:17)
--- NOTE | 2019-10-04 01:16 | DIS ---
DATE OF ADMISSION: 09/30/2019 DATE OF DISCHARGE: 10/03/2019 HOSPITAL COURSE: Ms. Turcios is a 64-year-old female with a medical history of melanoma and hypertension, who came in with generalized weakness, cough, and fever for 2 days. She was diagnosed with COVID pneumonia and initially required nasal cannula oxygen. She was started on Decadron and by the time of discharge was breathing and saturating well on room air. Inflammatory markers were initially elevated, but on the day of discharge, they were significantly reduced. She was discharged home with home oxygen p.r.n. shortness of breath, Decadron, and education regarding continued isolation. PHYSICAL EXAMINATION: VITAL SIGNS: Blood pressure 120/66, pulse 68, respiratory rate 18, oxygen saturation 97% on room air, and temperature 98.2 Fahrenheit. GENERAL: Lying comfortably in bed. Awake and alert. NECK: No JVD. HEART: Regular rate and rhythm. No murmur or gallop. RESPIRATORY: Clear to auscultation bilaterally. No wheezing, rales, or rhonchi. GI: Soft, nontender, and nondistended. Normal bowel sounds. EXTREMITIES: No cyanosis, clubbing, or edema. PSYCHIATRIC: Proper mood and affect. Alert and oriented x3. MEDICATIONS LIST: New medications; 1. Benzonatate 100 mg p.o. t.i.d. p.r.n. cough. 2. Decadron 6 mg p.o. daily. Continued medications; 1. Lovastatin. 2. Lisinopril. 3. Amlodipine. 4. Lenalidomide. 5. Decadron p.r.n. chemotherapy. Job ID: [id number]
== END 2019-10-03 19:37 | disposition home or self-care (01) | DRG 871 ==
LOC: ERS 13:22 → OBSVTOIN 16:09 → 2SW 16:09
PROVIDERS: ADMIT Internal Medicine; ATTEND Internal Medicine
PROC: 8E0ZXY6 Isolation (ICD-10-PCS; principal; 2019-09-30)
DX: A41.89 Other specified sepsis (principal); U07.1 COVID-19; J12.89 Other viral pneumonia; J96.01 Acute respiratory failure with hypoxia; C43.9 Malignant melanoma of skin, unspecified; I10 Essential (primary) hypertension; E78.5 Hyperlipidemia, unspecified; F17.210 Nicotine dependence, cigarettes, uncomplicated
CPT/HCPCS: 36415; 71045; 71275; 80053; 81003; 81015; 82728; 83605; 83735; 83880; 84443; 84484; 85025; 85379; 86140; 87040; 87086; 93005; 94760; 96360; J0456; J0696; J1100; J1650; J3490; J7050; Q0162; Q9967; U0002

== ENCOUNTER 2019-10-07 10:32 | Inpatient (IN) | payer MEDICARE, OTHER ==
--- NOTE | 2019-10-07 11:22 | CT ---
CT HEAD WITHOUT IV CONTRAST COMPARISON: 09/03/2017 HISTORY: Altered mental status. Covid positive. TECHNIQUE: Axial CT imaging at 5 mm intervals from vertex through skull base without contrast FINDINGS: There is decreased attenuation in the periventricular white matter which is nonspecific but likely re flective of chronic small vessel ischemic changes. Chronic small vessel ischemic changes do appear progressed compared to study in 2018. Low-density areas are seen in each thalamus which were also see n on prior CT exam on study of 08/19/2017 and are suggestive of remote lacunar infarctions. However there is a lacunar infarction the more medial aspect of the right thalamus, the exact age is indeterm inate.. Small low-density focus is seen in the right aspect of the preethi which was also probably present on the prior study likely due to remote lacunar infarction. There is a stable area of encepha lomalacia in the right cerebellar hemisphere related to prior infarction. There is mild cerebral volume loss. The ventricular system is normal in size, shape, and position for the degree of sulcal atrophy. There is no evidence of an acute cortical infarction, hemorrhage, mass effect, or midline shift. There is opacification left mastoid air cells. Right mastoid air cells are clear. Multiple subcentimeter lytic appearing lesions are again seen throughout the calvarium which were als o seen on the prior exam. IMPRESSION: 1. Remote lacunar infarctions are seen in each thalamus, but there is a low-density area in the more medial aspect of the right thalamus which is not appreciated on prior exams. The exact age of this lacunar infarction is difficult to determine. 2. Progression in chronic small vessel ischemic changes. 3. Multiple lytic lesions seen throughout the calvarium also seen on prior CT head.
[2019-10-07 11:23] LABS: Hemoglobin 10.5 g/dL (12.0-16.0); Mean Corpuscular HGB CONC 33.7 g/dL (32.0-36.0); Mean Corpuscular Hemoglobin 35.8 pg (27.0-31.0); Mean Platelet Volume 8.5 fL (7.4-10.4); Platelet Count 174 thou/uL (130-400); RBC Distribution Width 13.3 % (11.5-14.5); Red Blood Cell (RBC) Count 2.95 mill/uL (4.20-5.40); White Blood Cell (WBC) Count 3.9 thou/uL (4.8-10.8)
--- NOTE | 2019-10-07 11:30 | RAD ---
EXAM: CHEST ONE VIEW HISTORY: Altered mental status. Covid positive. COMPARISON: 09/30/2019 FINDINGS: Interstitial and reticulonodular opacities are again seen throughout the right lung and at the left l smith base in a similar distribution to prior study. No pleural effusion is seen. Cardiac silhouette is magnified by projection but is at the upper limits normal to borderline enlarged. No other interva l change. IMPRESSION: Interstitial opacities as well as reticulonodular densities throughout the right lung and involving t he left lung base not significantly changed from the prior exam. Findings are likely attributable to viral pneumonitis such as Covid 19.
[2019-10-07 11:46] LABS: ALT (SGPT) 55 U/L (8-55); AST (SGOT) 22 U/L (5-34); Acetaminophen Less than 6.0 mcg/mL (10.0-30.0); Albumin 3.1 g/dL (3.4-4.8); Alcohol Less than 10 mg/dL (Less than 10); Alkaline Phosphatase 54 U/L (40-110); Anion Gap 11 mmol/L (10-20); BUN (Urea Nitrogen) 19 mg/dL (9.8-20.1); Bilirubin, Total 0.6 mg/dL (0.2-1.2); CK (CPK) 41 U/L (29-168); Calc. Creatinine Clearance 0 mL/min (70-130); Carbon Dioxide 24 mmol/L (23-31); Chloride 109 mmol/L (98-107); Estimated GFR-MDRD Greater than 90; Globulin 2.6 g/dL (2.4-3.5); Glucose 96 mg/dL (80-115); Potassium 3.4 mmol/L (3.5-5.1); Protein, Total 5.7 g/dL (6.0-8.3); Salicylate Less than 8.0 mg/dL (15.0-30.0); Sodium 141 mmol/L (136-145)
[2019-10-07 11:55] LABS: Band 2 % (5-11); Lymphocytes 8 % (21-51); MDiff Complete? YES; Macrocytosis SLIGHT = 6-15 cells (100X) (0-5/hpf); Monocytes 16 % (0-10); Neutrophil 74 % (42-75); Platelet Morphology Comment Appears Adequate
[2019-10-07 12:02] LABS: CKMB 0.5 ng/mL (0-6.6)
[2019-10-07 12:28] LABS: Bilirubin Negative (Negative); Blood, Urine Negative (Negative); Glucose, Urine (Dipstick) Negative (Negative); Ketone, Urine Negative (Negative); Leukocyte Negative (Negative); Nitrite Negative (Negative); Protein, Urine (Dipstick) Negative (Neg-Trace); Specific Gravity, Urine 1.025 (1.005-1.030); Urobilinogen 0.2 mg/dL (Less than 2); pH, Urine 5.5 (5.0-9.0)
[2019-10-07 12:30] LABS: Clarity Clear (Clear)
[2019-10-07 12:42] LABS: Amphetamine Not Detected (NotDetected); Barbiturates Screen Not Detected (NotDetected); Benzodiazepine Screen Not Detected (NotDetected); Cocaine Metabolite Screen Not Detected (NotDetected); Medtox Control Line Valid? VALID (VALID); Medtox Reader # READER 4; Methadone Not Detected (NotDetected); Methamphetamine Not Detected (NotDetected); Opiate Screen Not Detected (NotDetected); Oxycodone Screen Not Detected (NotDetected); Phencyclidine (PCP) Not Detected (NotDetected); THC/Cannabinoid Screen Not Detected (NotDetected); Tricyclic Screen Not Detected (NotDetected)
[2019-10-07] MEDS ORDERED: Aspirin Chewable 81 MG TAB ONE (14:05)
[2019-10-07] MEDS ORDERED: Dexamethasone 10 MG/ML VIAL ONE (14:05)
[2019-10-07] MEDS ORDERED: cefTRIAXone\\ROCEPHIN 2 GM VIAL ONE (14:05)
[2019-10-07] MEDS ORDERED: Azithromycin 500 MG VIAL ONE (15:09)
[2019-10-07] MEDS ORDERED: Acetaminophen 325 MG TAB PO PRN (15:48)
[2019-10-07] MEDS ORDERED: Ondansetron ODT 4 MG TAB SL PRN (15:48)
[2019-10-07] MEDS ORDERED: Ondansetron PF 4 MG/2 ML Vial IVP PRN (15:48)
[2019-10-07 15:58] LABS: Troponin I 0.019 ng/mL (< 0.028)
[2019-10-07 17:51] LABS: Troponin I 0.019 ng/mL (< 0.028)
[2019-10-07] MEDS: Famotidine 20 MG TAB PO SCH (21:02)
--- NOTE | 2019-10-07 22:41 | HP ---
PRIMARY CARE PHYSICIAN: Alex Francisco MD HISTORY OF PRESENT ILLNESS: The patient is a 64-year-old female with past medical history significant for melanoma, currently on chemotherapy, hypertension, hyperlipidemia, and recent COVID positive test. She presents to the emergency room today for altered mental status x3 days. She was admitted to the hospital last week and discharged four days ago. During the last stay here, she was treated with azithromycin, Decadron, and Rocephin. No family is at the bedside at this time to discuss symptoms with and patient states she is feeling good. She does seem to have some global confusion. She also is very hard of hearing, which does make the interview a little bit more difficult. Today in the ER they completed a head CT, chest x-ray, EKG, and lab work. PAST MEDICAL HISTORY: Melanoma, which she is currently on chemotherapy with, hypertension, and hyperlipidemia. PAST SURGICAL HISTORY: None. ALLERGIES: NO KNOWN DRUG ALLERGIES. MEDICATIONS: 1. Decadron 6 mg p.o. daily. 2. Tessalon Perles 100 mg p.o. t.i.d. as needed. 3. Norvasc 10 mg p.o. daily. 4. Lisinopril 40 mg p.o. at bedtime. 5. Lovastatin 20 mg every night. 6. Revlimid 25 mg p.o. daily. SOCIAL HISTORY: The patient lives at home with family. She smokes half a pack of cigarettes per day. She drinks alcohol occasionally. She denies any illicit drug history. FAMILY HISTORY: Noncontributory to this case. REVIEW OF SYSTEMS: All other review of systems are negative, unless otherwise stated in HPI. PHYSICAL EXAMINATION: VITAL SIGNS: Temp 98.8 orally, pulse 64, respiratory rate 16, O2 saturation 96 % on room air, and blood pressure 131/80. CONSTITUTIONAL: The patient is alert and oriented to person, place, and time. She appears older than stated age. HEENT: Head, atraumatic and normocephalic. Eyes, PERRLA. Extraocular muscles intact. Sclerae nonicteric. NECK: Full range of motion. No JVD. No cervical adenopathy. RESPIRATORY: Respirations are even. Scattered rhonchi. No rales. No wheezes. CARDIOVASCULAR: S1, S2 appreciated. No murmurs, rubs, or gallops. Regular rate and rhythm. ABDOMEN: Soft, nontender, nondistended. Active bowel sounds. No guarding, no rigidity. EXTREMITIES: Full range of motion. Normal strength. Sensation intact. Palpable radial pulses. Posterior tibial pulse intact. NEUROLOGIC: The patient is alert, oriented to person, place, and time. Moves all extremities. No focal motor deficits. Unable to complete cerebellar test at this time possibly due to misunderstanding the test. PSYCH: Normal affect. IMAGING STUDIES: EKG normal sinus rhythm, 66 beats per minute. No ectopic beats. Chest x-ray shows interstitial opacities as well as reticulogranular densities throughout the right lung, involving the left lung base, not significantly changed to prior exam. Findings are likely attributable to viral pneumonitis such as COVID-19. Brain CT, remote lacunar infarctions are seen in each thalamus. There is a low-density area in the more medial aspect of the right thalamus which is not appreciated on prior exams. The exact age of lacunar infarction is difficult to determine as progression in chronic small-vessel ischemic changes and multiple lytic lesions seen throughout the calvarium, has also seen on prior CT head. LABORATORY DATA: White blood cells 3.9, hemoglobin 10.5, hematocrit 31.3, and platelets 174. Sodium 141, potassium 3.4, chloride 109, creatinine 0.68, GFR greater than 90, glucose 96, CK-MB 0.5. Initial troponin 0.032. Next troponin 0.019. Urine, no signs of acute infection. Toxicology screen was negative. IMPRESSION AND PLAN: We will complete an ischemic stroke workup after the new findings on the CT showed lacunar infarctions. We will consult Neurology along with ordering a fasting lipid, have stroke team to evaluate the patient. The patient will be on Lovenox daily. Order MRI and echo for the patient. COVID-19. The patient will be placed on droplet and airborne precautions. We will continue dexamethasone. Consult Dr. Zambrano, who is ID. Monitor patient's vital signs and response to treatment. Melanoma. The patient is currently on treatment with Dr. Gastelum. Consult not needed at this time, but we will continue to follow and consult him as needed. Hypertension. Stable. We can reconcile medications once and restart as needed. Hyperlipidemia. We can restart patient's home medication. We will be checking a fasting lipid in the morning. Tobacco abuse. The patient does not desire to quit. 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 Lovenox for deep vein thrombosis prophylaxis. Pepcid for GI prophylaxis. The patient wishes to be a full code. Her surrogate decision maker is Shola Turcios , her . This case has been discussed with Dr. Max. Job ID: [id number] [facility]
[2019-10-08 05:29] LABS: Anion Gap 12 mmol/L (10-20); BUN (Urea Nitrogen) 17 mg/dL (9.8-20.1); Calc. Creatinine Clearance 120 mL/min (70-130); Calcium 8.3 mg/dL (7.8-10.44); Carbon Dioxide 22 mmol/L (23-31); Cardiac Risk 4.5 (Less than 4.5); Chloride 109 mmol/L (98-107); Cholesterol 149 mg/dl (< 200 Desired); Estimated GFR-MDRD Greater than 90; Glucose 117 mg/dL (80-115); HDL Cholesterol 33 mg/dL (>60 Neg Risk); LDL Cholesterol, Calculated 101 mg/dL; Sodium 139 mmol/L (136-145); Triglycerides 77 mg/dL (Less than 150)
[2019-10-08 05:54] LABS: Band 13 % (5-11); Lymphocytes 19 % (21-51); MDiff Complete? YES; Mean Corpuscular HGB CONC 32.2 g/dL (32.0-36.0); Mean Corpuscular Hemoglobin 34.1 pg (27.0-31.0); Mean Platelet Volume 8.9 fL (7.4-10.4); Metamyelocyte 1 % (0-0); Monocytes 13 % (0-10); Neutrophil 54 % (42-75); Platelet Count 144 thou/uL (130-400); Platelet Morphology Comment Appears Adequate; RBC Distribution Width 13.4 % (11.5-14.5); Red Blood Cell (RBC) Count 2.92 mill/uL (4.20-5.40); White Blood Cell (WBC) Count 3.2 thou/uL (4.8-10.8)
[2019-10-08] MEDS: Famotidine 20 MG TAB PO SCH ×2 (09:27→19:34)
[2019-10-08] MEDS: Enoxaparin Sodium 40 MG/0.4 ML SYRINGE SC SCH (09:27)
--- NOTE | 2019-10-08 12:37 | CON ---
NEUROLOGY CONSULTATION DATE OF CONSULTATION: 10/08/2019 REASON FOR CONSULTATION: Altered mental status. HISTORY OF PRESENT ILLNESS: Ms. Turcios is a 64-year-old female with medical history significant for melanoma, hypertension, hyperlipidemia, presented and recent COVID positive test presented to the emergency room with altered mental status, which has been waxing and waning for the last 3 days. She has been admitted to the hospital and was discharged 4 days ago when she was treated for COVID pneumonia with azathioprine, Decadron, Rocephin. There is a concern that the patient has been having confusion and she is unable to provide adequate history. The patient denies focal weakness, focal paresthesias, nausea, vomiting, headache, chest pain, abdominal pain, loss of vision, blurred vision, dizziness, vertigo, or loss of consciousness. PAST MEDICAL HISTORY: Melanoma, currently on chemotherapy; hypertension; hyperlipidemia. PAST SURGICAL HISTORY: None. ALLERGIES: NO KNOWN DRUG ALLERGIES. HOME MEDICATIONS: 1. Decadron 6 mg daily. 2. Tessalon Perles 100 mg t.i.d. as needed. 3. Norvasc 10 mg daily. 4. Lisinopril 40 mg daily. 5. Lovastatin 20 mg daily. 6. Revlimid 25 mg daily. SOCIAL HISTORY: The patient lives at home with her family. Smokes half a pack a day. Drinks alcohol occasionally. Denies illegal drug use. FAMILY HISTORY: No family history of stroke or seizures. REVIEW OF SYSTEMS: All 10 systems were reviewed and were negative except the pertinent positives and negatives mentioned in the HPI. PHYSICAL EXAMINATION: VITAL SIGNS: Blood pressure 130/80, pulse 80, respiratory rate 18. HEENT: Normocephalic and atraumatic. NECK: Supple. CHEST: Clear. ABDOMEN: Soft. CVS: Regular rate and rhythm. NEUROLOGIC: The patient is alert and awake. She knows her name, place, year, and month. Following commands appropriately and maintains adequate eye contact. Speech is clear. Motor: Muscle tone and bulk are normal. Strength 5/5 bilaterally. Sensory intact. Cerebellar: Finger-nose testing intact. Cranial nerves 2 through 12 intact. Gait: Deferred due to the patient's safety reason. DATA REVIEWED: I reviewed the CT scan, which did not reveal any acute intracranial pathology. Chest x-ray showed interstitial opacity. Labs are also reviewed. Results are noting. Toxicology screen was negative. ASSESSMENT AND PLAN: Altered mental status seems to be multifactorial secondary to infectious and metabolic etiology; however, stroke is in the differential, but given no known focal deficits and altered mental status is currently improving, consider MRI Brain before proceeding to the full stroke workup. HCT negative for acute process. Continue home medications. Continue medical management per primary team, PT/OT/Speech. Neuro checks every 4 hours. Plan discussed with Dr. Max. We will continue to follow. Thank you for the consult. Job ID: [id number] [facility]US[facility]ord[facility]
--- NOTE | 2019-10-08 14:08 | MRI ---
MRI OF THE BRAIN WITHOUT CONTRAST: 10/08/19 HISTORY: Generalized weakness, stroke, altered mental status. COVID positive. FINDINGS: Comparison made with exam of . Correlation made with the previous day's CT scan. Old infarction in the right cerebellum and old lacunar infarctions in the thalami bilaterally are aga in seen. Changes of chronic small vessel ischemic disease in the periventricular white matter are red emonstrated. The ventricular size is appropriate and the basilar cisterns patent. There are a couple of tiny foci of restricted diffusion in the right parietal lobe. No hemorrhage, mi dline shift or abnormal extra-axial fluid collections are seen. There is mucosal disease in the paran sheila sinuses and fluid in the left mastoid air cells. IMPRESSION: Couple of tiny acute lacunar infarctions in the right parietal lobe. POS: OFF
--- NOTE | 2019-10-08 18:45 | PDOC.HOSPP ---
- Subjective Encounter Date: 10/08/19 Encounter Time: 18:42 Subjective: Patient was seen for follow-up regarding ischemic cerebrovascular accident. She denies any chest pain or shortness of breath. She denies any fevers or chills. - Objective Vital Signs & Weight: Vital Signs (12 hours) Temp Pulse Pulse Pulse Resp BP BP 10/08/19 16:37 98.2 F 55 L 19 10/08/19 11:55 98.6 F 52 L 20 10/08/19 10:35 59 L 60 145/75 H 138/72 10/08/19 07:30 97.7 F 53 L 21 H BP BP Pulse Ox Pulse Ox Pulse Ox Pulse Ox 10/08/19 16:37 150/83 H 98 10/08/19 11:55 142/77 H 97 10/08/19 10:35 97 93 L 95 10/08/19 07:30 135/72 97 Weight Weight 182 lb 6.4 oz I&O: 10/07/19 10/08/19 10/09/19 06:59 06:59 06:59 Intake Total 150 Output Total 150 Balance 0 Result Diagrams: 10/08/19 04:44 10/08/19 04:44 Additional Labs: Labs and MAR were reviewed by me. EKG Reviewed by me: Yes (Telemetry: NSR) Hospitalist ROS - Review of Systems Respiratory: denies: cough, shortness of breath, SOB with excertion, pleuritic pain, wheezing Cardiovascular: denies: chest pain, palpitations, orthopnea, paroxysmal noc. dyspnea, edema, light headedness Gastrointestinal: denies: nausea, vomiting, abdominal pain, diarrhea, constipation, melena, hematochezia - Medication Medications: Active Medications Generic Name Dose Route Start Last Admin Trade Name Freq PRN Reason Stop Dose Admin Enoxaparin Sodium 40 mg 10/08/19 09:00 10/08/19 09:27 Lovenox SC 40 mg 0900 CATA Administration Famotidine 20 mg 10/07/19 21:00 10/08/19 09:27 Pepcid PO 20 mg BID CATA Administration - Exam General Appearance: awake alert Eye: anicteric sclera ENT: moist mucosa Neck: supple Heart: RRR Respiratory: CTAB Gastrointestinal: soft, non-tender Extremities: no cyanosis Psychiatric: normal affect, normal behavior Hosp A/P (1) Ischemic cerebrovascular accident (CVA) Code(s): I63.9 - CEREBRAL INFARCTION, UNSPECIFIED Status: Acute (2) Dyslipidemia Code(s): E78.5 - HYPERLIPIDEMIA, UNSPECIFIED Status: Acute (3) HTN (hypertension) Code(s): I10 - ESSENTIAL (PRIMARY) HYPERTENSION Status: Chronic (4) Tobacco abuse Code(s): Z72.0 - TOBACCO USE Status: Chronic (5) Multiple myeloma Code(s): C90.00 - MULTIPLE MYELOMA NOT HAVING ACHIEVED REMISSION Status: Chronic (6) Hypokalemia Code(s): E87.6 - HYPOKALEMIA Status: Resolved - Plan PT/OT Continue aspirin, continue statin. Monitor vital signs and titrate antihypertensives as needed. PT/OT/speech therapy eval/treat. Continue Revlimid. Hypokalemia resolved. Appreciate neurology service input. Will await infectious diseases consult.
[2019-10-08] MEDS ORDERED: Aspirin 325 mg Enteric Coated Tablet PO SCH (19:00)
[2019-10-08] MEDS ORDERED: Nicotine 14 MG PATCH TD SCH (20:00)
[2019-10-08] MEDS ORDERED: Lisinopril 20 MG TAB PO SCH (21:00)
--- NOTE | 2019-10-08 23:36 | CON ---
DATE OF CONSULTATION: 10/08/2019 REASON FOR CONSULTATION: Altered mental state with recent COVID diagnosis. HISTORY OF PRESENT ILLNESS: A 64-year-old with a history of malignant melanoma on chemotherapy, hyperlipidemia, and hypertension, who recently was admitted for a COVID infection, she was treated with Decadron, azithromycin, and Rocephin and discharged four days before this current admission. The reason she was brought back is because of confusional state. On arrival, she did not appear to be confused and she is not confused right now at the moment. She is right now awake, alert, and oriented, wants to go home. She knows the date, very quickly responded to all the orientation questions. She has fairly decent recollection of events. Denies any headaches. No shortness of breath or cough. No abdominal pain or diarrhea. Some back pain. Some appendicular structure pain, which is chronic related to her metastatic melanoma. PAST MEDICAL HISTORY: Melanoma on chemotherapy, hypertension, and hyperlipidemia. PAST SURGICAL HISTORY: Negative. ALLERGIES: NONE. MEDICATIONS: 1. Decadron. 2. Tessalon Perles. 3. Revlimid. 4. Lovastatin. 5. Lisinopril. SOCIAL HISTORY: Current smoker. Drinks occasionally. Lives in [place] with family members. FAMILY HISTORY: Noncontributory. CURRENT MEDICATIONS: 1. Decadron. 2. Norvasc. 3. Lisinopril. PHYSICAL EXAMINATION: VITAL SIGNS: T-max 98.8, blood pressure 140/70, pulse 52, respirations 20, and O2 saturation 97% on room air. GENERAL: Appears in no distress. She is able to speak in full sentences. HEENT: Ocular movements conjugate. Oral cavity normal. SKIN: Normal. There is no lymphadenopathy. LUNGS: Clear to auscultation and percussion. HEART: S1 and S2. Regular rate. No S3 or S4. ABDOMEN: Soft, not distended or tender. No ascites. No bladder distention. EXTREMITIES: No joint inflammatory activity. Moves extremities equally. NEUROLOGIC: She is awake, knows her name and oriented x3. Follows commands. Speech is normal. LABORATORY STUDIES: WBC count is 3.2, hemoglobin 10, and platelets 144 with 19% lymphocytes and 54% neutrophils. Creatinine 0.6. Liver profile normal. Urinalysis was essentially normal. DIAGNOSTIC STUDIES: Chest x-ray with bilateral infiltrates, which are stable compared with prior film. She had a brain MRI, which showed small lacunar infarctions actually did describe as tiny acute lacunar infarctions in the right parietal lobe. Dr. Little, saw the patient and ordered a brain MRI. ASSESSMENT: Metastatic melanoma, COVID infection recently treated mild. Reported confusional state and 2 tiny lacunar infarctions in the parietal area. DISCUSSION: Her COVID infection appears to be mild and I would recommend discontinuation of Decadron at this time. Regarding the lacunar infarctions, COVID infection is known to increase the risk of those events due to endothelial dysfunction, although in the OR ASSISTANT I am not aware that there is an increase in lacunar infarctions. Job ID: [id number] [facility]ENTERC[facility]elia
[2019-10-09 03:49] VITALS: BMI 29.1
[2019-10-09 04:59] LABS: Anion Gap 10 mmol/L (10-20); BUN (Urea Nitrogen) 19 mg/dL (9.8-20.1); Calc. Creatinine Clearance 115 mL/min (70-130); Calcium 8.4 mg/dL (7.8-10.44); Carbon Dioxide 24 mmol/L (23-31); Chloride 110 mmol/L (98-107); Estimated GFR-MDRD Greater than 90; Glucose 78 mg/dL (80-115); Potassium 3.5 mmol/L (3.5-5.1); Sodium 140 mmol/L (136-145)
[2019-10-09 05:08] LABS: Band 1 % (5-11); Hemoglobin 9.8 g/dL (12.0-16.0); Hypochromia SLIGHT = 6-15 cells (100X) (0-5/hpf); Lymphocytes 34 % (21-51); MDiff Complete? YES; Mean Corpuscular HGB CONC 30.7 g/dL (32.0-36.0); Mean Corpuscular Hemoglobin 33.7 pg (27.0-31.0); Mean Platelet Volume 8.9 fL (7.4-10.4); Monocytes 1 % (0-10); Neutrophil 64 % (42-75); Platelet Count 160 thou/uL (130-400); Platelet Morphology Comment Appears Adequate; RBC Distribution Width 13.6 % (11.5-14.5)
[2019-10-09] MEDS: Famotidine 20 MG TAB PO SCH (08:17)
[2019-10-09] MEDS: Enoxaparin Sodium 40 MG/0.4 ML SYRINGE SC SCH (08:17)
[2019-10-09] MEDS ORDERED: Amlodipine 10 MG TAB PO SCH (09:00)
[2019-10-09] MEDS ORDERED: Aspirin 325 mg Enteric Coated Tablet PO SCH (09:00)
[2019-10-09] MEDS ORDERED: Lenalidomide [Revlimid] 25 MG PO SCH (09:00)
[2019-10-09] MEDS ORDERED: Iopamidol-370 76% 500 ML 1 ML ONE (10:34)
[2019-10-09 13:06] VITALS: BP 155/77; TEMP 97.6
--- NOTE | 2019-10-09 13:28 | DIS ---
DATE OF ADMISSION: 10/07/2019 DATE OF DISCHARGE: 10/09/2019 PRIMARY CARE PROVIDER: Alex Francisco MD DISCHARGE DIAGNOSES: 1. Ischemic cerebrovascular accident. 2. Hypokalemia. 3. Acute metabolic encephalopathy. CONDITION OF PATIENT ON THE DAY OF DISCHARGE: Stable. I assessed Ms. Turcios on the day of discharge. She denies any chest pain or shortness of breath. Vital signs are stable. S1 and S2 are heard, regular. Lungs are clear to auscultation bilaterally. CONSULTATIONS DURING THIS HOSPITALIZATION: Neurology, Dr. Little; Infectious Diseases, Dr. Zambrano. DISCHARGE MEDICATIONS: Dexamethasone was discontinued. She has been started on aspirin 325 mg daily and 14 mg nicotine patch daily. Otherwise, no change was made to her pre-admission home medications, which include, 1. Amlodipine 10 mg daily. 2. Revlimid as directed. 3. Lisinopril 40 mg at bedtime. 4. Lovastatin 20 mg in the evening. 5. Tessalon p.r.n. HOSPITAL COURSE: Ms. Turcios is a pleasant 64-year-old lady, who was admitted to [facility] on October 07, 2019, for acute metabolic encephalopathy. She was seen by Neurology Service. This is in the context of previously diagnosed COVID-19 infection. MRI of the brain showed a couple of tiny acute lacunar infarctions in the right parietal lobe. CT angiogram of neck and brain did not show any significant abnormalities in the neck or the head. She had bilateral upper lobe infiltrates, likely secondary to COVID pneumonia. 2D echocardiogram was also ordered, but could not be performed due to logistical issues around the pandemic. She is advised to have her 2D echocardiogram as outpatient. She was also seen by Infectious Disease Service. It was recommended that dexamethasone be discontinued. According to Infectious Disease Service, COVID infection is known to increase the risk of infarctions due to endothelial dysfunction, although he was not aware that there is an increase in lacunar infarctions. She was seen by Therapy Services. She has been recommended for home health for PT and OT. ACTIVITY: As tolerated. DIET: Heart healthy. POST ACUTE CARE FOLLOWUP: With primary care provider in 3 days and with Neurology Service in 2 weeks. DISCHARGE DESTINATION: Home. TIME SPENT: Total amount of time spent coordinating this discharge: 25 minutes. Job ID: [id number]
[2019-10-09] MEDS ORDERED: Non-Formulary Item 1 EACH (Lovastatin [Lovastatin] 20 MG) PO SCH (17:00)
[2019-10-09] MEDS ORDERED: Simvastatin 10 MG TAB PO SCH (17:00)
--- NOTE | 2019-10-10 08:30 | PQF ---
CLINICAL DOCUMENTATION CLARIFICATION FORM: Dear : Jesse Max Date / Time: 10/10/19 5499 Please exercise your independent, professional judgment in responding to the clarification form. Clinical indicators are provided on the bottom of this form for your review Please check appropriate box(es): [ x ] Sepsis due to Covid 19 infection [ ] Severe sepsis Covid 19 infection [ ] Septic Shock Covid 19 infection [ ] Localized infection without sepsis [ ] Other diagnosis [ ] Unable to determine In addition, please specify: Present on Admission (POA): [ x ] Yes [ ] No [ ] Unable to determine Physician Signature: Date/Time: For continuity of documentation, please document condition throughout progress notes and discharge summary. Thank You. To be completed by CDI/Coding staff for physician review: Present Clinical Indicators - Signs / Symptoms / Labs Results and Location in Medical Record [x] BP 132/78, Pulse 62, Resp 21, Temp 98.2 Vital signs 10/06 [x] WBC 3.9; 3.2; 3.0, Plt count 174, Band 2, Neutrophils 74 Laboratory Hematology 10/06 [x] Chest X-ray Impression: Findings likely attributes to viral pneumoinitis such as Covid [address] Fuentes 10/06 [x] Recent Covid positive test H&P p1 10/06 [place] [facility] TECHNIC[facility] [x] Acute Metabolic Encephalopathy DS p1 10/08 Dr Max [x] Covid Pneumonia DS 10/08 Dr Max [x] Altered mental status ED Notes 10/06 Present Risk Factors Results and Location in Medical Record [x] 64 year-old Female H&P p1 10/06 [place] [facility] TECHNICIAN-[facility] [x] Melanoma H&P p1 10/06 [place] [facility] TECHNICIAN-[facility] [x] HTN H&P p1 10/06 [place] IN[facility]ORY TECHNICIAN-[facility] [x] Smoker H&P p1 10/06 [place] IN[facility]ORY TECHNICIAN-[facility] [x] Ischemic CVA DS p1 10/08 Dr Max [x] Covid Pneumonia DS 10/08 Dr Max Present Treatments Results and Location in Medical Record [x] IV Azithromax 500 mg MAY 17 [x] IV Rocephin 2 gm MAY 17 [x] IVF NS 1L MAY 17 [x] Chest X-ray Imaging Dr Fuentes 10/06 [x] ID consult Consult Juvencio Prescott 10/07 [x] Isolation Orders 10/06 [facility]/[employer] Folder Operator Signature: Yeimi Carolynn Spivey Phone #: [phone] Date/Time: 10/10/19 0829 This is a permanent part of the Medical Record [facility]
--- NOTE | 2019-10-10 12:29 | CT ---
Exam: CTA neck with contrast CTA head with contrast HISTORY: Right parietal lobe lacunar infarctions COMPARISON: MRI brain 10/08/2019 TECHNIQUE: 1. Multiple contiguous axial images were obtained and a CTA of the neck with contrast. 3-D sagittal a nd coronal MIP reformats were performed. 2. Multiple contiguous axial images were obtained and a CTA of the head with contrast. 3-D sagittal a nd coronal MIP reformats were performed. FINDINGS: CTA NECK: Aortic arch: Normal origin of the carotid arteries from the arch. No significant atherosclerotic dise ase of the subclavian arteries. Right common carotid artery: No significant atherosclerotic disease or narrowing Left common carotid artery: No significant atherosclerotic disease or narrowing Right internal carotid artery: No significant atherosclerotic disease or narrowing per NASCET criteri a Right external carotid artery: No significant atherosclerotic disease or narrowing Left internal carotid artery: No significant atherosclerotic disease or narrowing per NASCET criteri a Left external carotid artery: No significant atherosclerotic disease or narrowing Right cervical vertebral artery: No significant atherosclerotic disease or narrowing Left cervical vertebral artery: No significant atherosclerotic disease or narrowing No cervical adenopathy. Multifocal opacities are seen peripherally in the bilateral upper lobes which may be secondary to Covid pneumonia. Degenerative changes are seen in the spine. CTA HEAD: There are scattered hypodensities in the subcortical and periventricular white matter, likely seconda ry to small vessel ischemic disease. Mild diffuse nonfocal atherosclerotic disease is seen in the cavernous portion of both internal carot id arteries. Right intracranial internal carotid artery: Patent without narrowing or occlusion Right anterior cerebral artery: Patent without narrowing or occlusion Right middle cerebral artery: Patent without narrowing or occlusion Left intracranial internal carotid artery: Patent without narrowing or occlusion Left anterior cerebral artery: Patent without narrowing or occlusion Left middle cerebral artery: Patent without narrowing or occlusion No aneurysmal dilatation is seen in the anterior circulation. Right vertebral artery: Patent without narrowing or occlusion Left vertebral artery: Patent without narrowing or occlusion Basilar artery: Patent without narrowing or occlusion The posterior cerebral arteries and cerebellar arteries are patent without narrowing or occlusion. No aneurysmal dilatation is seen in the posterior circulation. IMPRESSION: 1. No significant CTA abnormality of the neck 2. No significant CTA abnormality of the head 3. Bilateral upper lobe infiltrates may be secondary to Covid pneumonia. Transcribed Date/Time: 10/10/2019 12:29 PM
== END 2019-10-09 16:44 | disposition home health service (06) | DRG 64 ==
LOC: ERS 10:32 → 2SW 15:53
PROVIDERS: ADMIT Internal Medicine; ATTEND Internal Medicine
PROC: 8E0ZXY6 Isolation (ICD-10-PCS; principal; 2019-10-07)
DX: I63.81 Other cerebral infarction due to occlusion or stenosis of small artery (principal); U07.1 COVID-19; J12.89 Other viral pneumonia; G93.41 Metabolic encephalopathy; A41.89 Other specified sepsis; C43.9 Malignant melanoma of skin, unspecified; I10 Essential (primary) hypertension; E78.5 Hyperlipidemia, unspecified; F17.210 Nicotine dependence, cigarettes, uncomplicated; E87.6 Hypokalemia; R29.702 NIHSS score 2; R40.2362 Coma scale, best motor response, obeys commands, at arrival to emergency department; R40.2142 Coma scale, eyes open, spontaneous, at arrival to emergency department; R40.2252 Coma scale, best verbal response, oriented, at arrival to emergency department; Z79.899 Other long term (current) drug therapy
CPT/HCPCS: 36415; 70450; 70496; 70498; 70551; 71045; 80048; 80053; 80061; 80306; 80307; 81003; 82550; 82553; 84484; 85025; 93005; 94760; J0456; J0696; J1100; J1650

== ENCOUNTER 2019-10-14 10:29 | Emergency (ER) | payer MEDICARE, OTHER ==
[2019-10-15 15:20] LABS: SARS-CoV-2 MS2 Positive; SARS-CoV-2 N Gene Positive; SARS-CoV-2 S Gene Positive; SARS-CoV-2 by NAA DETECTED (NotDetected); SARS-CoV-2 orf1ab Positive
== END 2019-10-14 10:47 | disposition home or self-care (01) ==
LOC: ERS 10:29
DX: U07.1 COVID-19 (principal); F17.200 Nicotine dependence, unspecified, uncomplicated; E78.5 Hyperlipidemia, unspecified; E78.00 Pure hypercholesterolemia, unspecified; I10 Essential (primary) hypertension
CPT/HCPCS: 87635; 99283; U0003

== ENCOUNTER 2019-11-08 10:15 | Day surgery (SDC) | payer MEDICARE ==
[~2019-11-08 10:15] MED LIST changes: +Dexamethasone 4 MG TAB PO SCH; +valACYclovir 500 MG TAB PO SCH
[2019-11-08 10:20] VITALS: BP 121/60
== END 2019-11-08 11:46 | disposition home or self-care (01) ==
LOC: ONC/OP 10:15
PROVIDERS: ATTEND Internal Medicine Hematology & Oncology
DX: Z51.11 Encounter for antineoplastic chemotherapy (principal); C90.00 Multiple myeloma not having achieved remission
CPT/HCPCS: 96401; J9041

== ENCOUNTER 2019-11-22 09:42 | Day surgery (SDC) | payer MEDICARE ==
[2019-11-22 11:12] VITALS: BP 127/74; TEMP 97.3
== END 2019-11-22 11:20 | disposition home or self-care (01) ==
LOC: ONC/OP 09:42
PROVIDERS: ATTEND Internal Medicine Hematology & Oncology
DX: Z51.11 Encounter for antineoplastic chemotherapy (principal); C90.00 Multiple myeloma not having achieved remission
CPT/HCPCS: 96401; J9041

== ENCOUNTER 2019-12-06 09:33 | Day surgery (SDC) | payer MEDICARE ==
[2019-12-06 10:18] VITALS: BP 123/71; TEMP 98.6
== END 2019-12-06 10:21 | disposition home or self-care (01) ==
LOC: ONC/OP 09:33
PROVIDERS: ATTEND Internal Medicine Hematology & Oncology
DX: Z51.11 Encounter for antineoplastic chemotherapy (principal); C90.00 Multiple myeloma not having achieved remission
CPT/HCPCS: 96372; J9041

== ENCOUNTER 2019-12-20 10:41 | Day surgery (SDC) | payer MEDICARE, OTHER ==
[2019-12-20 10:51] VITALS: BP 140/63; TEMP 98.1
== END 2019-12-20 11:11 | disposition home or self-care (01) ==
LOC: ONC/OP 10:41
PROVIDERS: ATTEND Internal Medicine Hematology & Oncology
DX: Z51.11 Encounter for antineoplastic chemotherapy (principal); C90.00 Multiple myeloma not having achieved remission
CPT/HCPCS: 96401; J9041

== ENCOUNTER 2020-01-03 10:10 | Day surgery (SDC) | payer MEDICARE, OTHER ==
[2020-01-03 10:43] VITALS: BP 159/77; TEMP 98.2
[2020-01-03 11:36] LABS: #Lymphocytes 1.2 thou/uL (1.20-3.40); #Monocytes 0.4 thou/uL (0.11-0.59); #Neutrophils 2.9 thou/uL (1.40-6.50); %Basophils 0.5 % (0.0-1.0); %Eosinophils 0.9 % (0.0-10.0); %Lymphocytes 26.9 % (21.0-51.0); %Monocytes 8.4 % (0.0-10.0); %Neutrophils 63.4 % (42.0-75.0); Hemoglobin 12.4 g/dL (12.0-16.0); Mean Corpuscular Hemoglobin 35.2 pg (27.0-31.0); Mean Platelet Volume 7.7 fL (7.4-10.4); Platelet Count 142 thou/uL (130-400); RBC Distribution Width 14.9 % (11.5-14.5); Red Blood Cell (RBC) Count 3.52 mill/uL (4.20-5.40); White Blood Cell (WBC) Count 4.6 thou/uL (4.8-10.8)
[2020-01-03 11:55] LABS: MDiff Complete? YES; Macrocytosis SLIGHT = 6-15 cells (100X) (0-5/hpf); Platelet Morphology Comment Appears Adequate; Polychromasia SLIGHT = 2-3 cells (100X) (0-2/hpf)
== END 2020-01-03 12:16 | disposition home or self-care (01) ==
LOC: ONC/OP 10:10
PROVIDERS: ATTEND Internal Medicine Hematology & Oncology
DX: Z51.11 Encounter for antineoplastic chemotherapy (principal); C90.00 Multiple myeloma not having achieved remission
CPT/HCPCS: 85025; 96401; J9041

== ENCOUNTER 2020-01-17 09:58 | Day surgery (SDC) | payer MEDICARE ==
[~2020-01-17 09:58] MED LIST changes: +Zoledronic Acid 4 MG in Sodium Chloride 0.9% 100 ML IVPB SCH
[2020-01-17] MEDS ORDERED: Sodium Chloride 0.9% 20 ML ONE (10:02)
[2020-01-17 10:09] VITALS: BP 145/81
== END 2020-01-17 11:01 | disposition home or self-care (01) ==
LOC: ONC/OP 09:58
PROVIDERS: ATTEND Internal Medicine Hematology & Oncology
DX: Z51.11 Encounter for antineoplastic chemotherapy (principal); C90.00 Multiple myeloma not having achieved remission
CPT/HCPCS: 96365; 96401; J3489; J3490; J9041

== ENCOUNTER 2020-01-31 09:57 | Day surgery (SDC) | payer MEDICARE ==
[~2020-01-31 09:57] MED LIST changes: -Zoledronic Acid 4 MG in Sodium Chloride 0.9% 100 ML IVPB SCH
[2020-01-31 12:22] VITALS: BP 136/74; TEMP 98.1
== END 2020-01-31 12:25 | disposition home or self-care (01) ==
LOC: ONC/OP 09:57
PROVIDERS: ATTEND Internal Medicine Hematology & Oncology
DX: Z51.11 Encounter for antineoplastic chemotherapy (principal); C90.00 Multiple myeloma not having achieved remission
CPT/HCPCS: 96401; J9041

== ENCOUNTER → 2020-02-14 | Day surgery (SDC) | payer MEDICARE ==
[2020-02-14 12:55] VITALS: BP 136/76; TEMP 98.5
== END ==
LOC: ONC/OP 09:47
PROVIDERS: ATTEND Internal Medicine Hematology & Oncology
DX: Z51.11 Encounter for antineoplastic chemotherapy (principal); C90.00 Multiple myeloma not having achieved remission
CPT/HCPCS: 36415; 80053; 82248; 83615; 83883; 84100; 84165; 84550; 96401; J9041

== ENCOUNTER 2020-02-28 09:51 | Day surgery (SDC) | payer MEDICARE ==
[~2020-02-28 09:51] MED LIST changes: -Dexamethasone 4 MG TAB PO SCH; -valACYclovir 500 MG TAB PO SCH
[2020-02-28 10:56] VITALS: BP 137/63; TEMP 98.4
== END 2020-02-28 11:15 | disposition home or self-care (01) ==
LOC: ONC/OP 09:51
PROVIDERS: ATTEND Internal Medicine Hematology & Oncology
DX: Z51.11 Encounter for antineoplastic chemotherapy (principal); C90.00 Multiple myeloma not having achieved remission
CPT/HCPCS: 96401; J9041

== ENCOUNTER 2020-03-12 10:29 | Day surgery (SDC) | payer MEDICARE ==
[~2020-03-12 10:29] MED LIST changes: +Dexamethasone 4 MG TAB PO SCH
[2020-03-12 12:39] VITALS: BP 136/76; TEMP 98.7
== END 2020-03-12 12:40 | disposition home or self-care (01) ==
LOC: ONC/OP 10:29
PROVIDERS: ATTEND Internal Medicine Hematology & Oncology
DX: Z51.11 Encounter for antineoplastic chemotherapy (principal); C90.00 Multiple myeloma not having achieved remission
CPT/HCPCS: 96401; J9041

== ENCOUNTER 2020-03-27 09:48 | Day surgery (SDC) | payer MEDICARE, OTHER ==
[~2020-03-27 09:48] MED LIST changes: +valACYclovir 500 MG TAB PO SCH
== END 2020-03-27 10:21 | disposition home or self-care (01) ==
LOC: ONC/OP 09:48
PROVIDERS: ATTEND Internal Medicine Hematology & Oncology
DX: Z51.11 Encounter for antineoplastic chemotherapy (principal); C90.00 Multiple myeloma not having achieved remission
CPT/HCPCS: 96401; J9041

== ENCOUNTER 2020-04-10 10:33 | Day surgery (SDC) | payer MEDICARE, OTHER ==
[~2020-04-10 10:33] MED LIST changes: +Zoledronic Acid 4 MG in Sodium Chloride 0.9% 100 ML IVPB SCH
[2020-04-10] MEDS ORDERED: Sodium Chloride 0.9% 20 ML ONE (10:42)
[2020-04-10 11:16] VITALS: BP 125/61; TEMP 98
== END 2020-04-10 12:11 | disposition home or self-care (01) ==
LOC: ONC/OP 10:33
PROVIDERS: ATTEND Internal Medicine Hematology & Oncology
DX: Z51.11 Encounter for antineoplastic chemotherapy (principal); C90.00 Multiple myeloma not having achieved remission
CPT/HCPCS: 36415; 82565; 96365; 96401; J3489; J3490; J9041

== ENCOUNTER 2020-04-24 10:05 | Day surgery (SDC) | payer MEDICARE, OTHER ==
[~2020-04-24 10:05] MED LIST changes: -Zoledronic Acid 4 MG in Sodium Chloride 0.9% 100 ML IVPB SCH
[2020-04-24 12:08] VITALS: BP 134/67; TEMP 98.1
== END 2020-04-24 12:30 | disposition home or self-care (01) ==
LOC: ONC/OP 10:05
PROVIDERS: ATTEND Internal Medicine Hematology & Oncology
DX: Z51.11 Encounter for antineoplastic chemotherapy (principal); C90.00 Multiple myeloma not having achieved remission
CPT/HCPCS: 36415; 80053; 82248; 83615; 84100; 84165; 84550; 96401; J9041

== ENCOUNTER 2020-05-08 10:22 | Day surgery (SDC) | payer MEDICARE, OTHER | END 2020-05-08 11:45 | disposition home or self-care (01) | LOC: ONC/OP 10:22 | PROVIDERS: ATTEND Internal Medicine Hematology & Oncology | DX: Z51.11 Encounter for antineoplastic chemotherapy (principal); C90.00 Multiple myeloma not having achieved remission | CPT/HCPCS: 96401; J9041 ==

== ENCOUNTER 2020-05-22 10:00 | Day surgery (SDC) | payer MEDICARE, OTHER ==
[2020-05-22 10:46] VITALS: BP 131/71; TEMP 98.4
== END 2020-05-22 15:46 | disposition home or self-care (01) ==
LOC: ONC/OP 10:00
PROVIDERS: ATTEND Internal Medicine Hematology & Oncology
DX: Z51.11 Encounter for antineoplastic chemotherapy (principal); C90.00 Multiple myeloma not having achieved remission
CPT/HCPCS: 96401; J9041

== ENCOUNTER 2020-06-05 10:49 | Day surgery (SDC) | payer MEDICARE, OTHER ==
[2020-06-05 14:14] VITALS: BP 137/60; TEMP 98.2
== END 2020-06-05 14:17 | disposition home or self-care (01) ==
LOC: ONC/OP 10:49
PROVIDERS: ATTEND Internal Medicine Hematology & Oncology
DX: Z51.11 Encounter for antineoplastic chemotherapy (principal); C90.00 Multiple myeloma not having achieved remission
CPT/HCPCS: 96401; J9041

== ENCOUNTER 2020-06-19 10:36 | Day surgery (SDC) | payer MEDICARE, OTHER ==
[~2020-06-19 10:36] MED LIST changes: -Dexamethasone 4 MG TAB PO SCH; -valACYclovir 500 MG TAB PO SCH
[2020-06-19 13:01] VITALS: BP 129/80; TEMP 98.3
== END 2020-06-19 13:09 | disposition home or self-care (01) ==
LOC: ONC/OP 10:36
PROVIDERS: ATTEND Internal Medicine Hematology & Oncology
DX: Z51.11 Encounter for antineoplastic chemotherapy (principal); C90.00 Multiple myeloma not having achieved remission
CPT/HCPCS: 96401; J9041

== ENCOUNTER 2020-07-03 10:19 | Day surgery (SDC) | payer MEDICARE, OTHER ==
[~2020-07-03 10:19] MED LIST changes: -ADMIXTURE FEE CHEMO SC SCH; +Dexamethasone 4 MG TAB PO SCH; +SODIUM CHLORIDE 0.9% SC SCH
[2020-07-03 10:27] VITALS: BP 136/65; TEMP 98.2
== END 2020-07-03 12:52 | disposition home or self-care (01) ==
LOC: ONC/OP 10:19
PROVIDERS: ATTEND Internal Medicine Hematology & Oncology
DX: Z51.11 Encounter for antineoplastic chemotherapy (principal); C90.00 Multiple myeloma not having achieved remission
CPT/HCPCS: 96401; J9041

== ENCOUNTER 2020-07-17 10:54 | Day surgery (SDC) | payer MEDICARE, OTHER ==
[~2020-07-17 10:54] MED LIST changes: +valACYclovir 500 MG TAB PO SCH
[2020-07-17 12:26] VITALS: BP 121/69; TEMP 98.8
== END 2020-07-17 12:43 | disposition home or self-care (01) ==
LOC: ONC/OP 10:54
PROVIDERS: ATTEND Internal Medicine Hematology & Oncology
DX: Z51.11 Encounter for antineoplastic chemotherapy (principal); C90.00 Multiple myeloma not having achieved remission
CPT/HCPCS: 96401; J9041

== ENCOUNTER 2020-07-31 10:46 | Day surgery (SDC) | payer MEDICARE ==
[~2020-07-31 10:46] MED LIST changes: +Zoledronic Acid 4 MG in Sodium Chloride 0.9% 100 ML IVPB SCH
[2020-07-31 11:19] VITALS: BP 145/68; TEMP 97.8
== END 2020-07-31 11:42 | disposition home or self-care (01) ==
LOC: ONC/OP 10:46
PROVIDERS: ATTEND Internal Medicine Hematology & Oncology
DX: Z51.11 Encounter for antineoplastic chemotherapy (principal); C90.00 Multiple myeloma not having achieved remission
CPT/HCPCS: 36415; 82565; 96365; 96401; J3489; J3490; J9041

== ENCOUNTER 2020-08-14 10:19 | Day surgery (SDC) | payer MEDICARE ==
[~2020-08-14 10:19] MED LIST changes: -Zoledronic Acid 4 MG in Sodium Chloride 0.9% 100 ML IVPB SCH
[2020-08-14 12:38] VITALS: BP 150/70; TEMP 97.9
== END 2020-08-14 12:40 | disposition home or self-care (01) ==
LOC: ONC/OP 10:19
PROVIDERS: ATTEND Internal Medicine Hematology & Oncology
DX: Z51.11 Encounter for antineoplastic chemotherapy (principal); C90.00 Multiple myeloma not having achieved remission
CPT/HCPCS: 96401; J9041

== ENCOUNTER → 2020-08-28 | Day surgery (SDC) | payer MEDICARE | LOC: ONC/OP 10:41 | PROVIDERS: ATTEND Internal Medicine Hematology & Oncology | DX: Z51.11 Encounter for antineoplastic chemotherapy (principal); C90.00 Multiple myeloma not having achieved remission | CPT/HCPCS: 96401; J9041 ==

== ENCOUNTER 2020-09-11 10:08 | Day surgery (SDC) | payer MEDICARE ==
[2020-09-11 10:28] VITALS: BP 144/74
== END 2020-09-11 10:29 | disposition home or self-care (01) ==
LOC: ONC/OP 10:08
PROVIDERS: ATTEND Internal Medicine Hematology & Oncology
DX: Z51.11 Encounter for antineoplastic chemotherapy (principal); C90.00 Multiple myeloma not having achieved remission
CPT/HCPCS: 96401; J9041

== ENCOUNTER 2020-10-09 11:14 | Day surgery (SDC) | payer MEDICARE ==
[~2020-10-09 11:14] MED LIST changes: -Dexamethasone 4 MG TAB PO SCH; -valACYclovir 500 MG TAB PO SCH
[2020-10-09 11:22] VITALS: BP 139/91; TEMP 98.2
[2020-10-09] MEDS ORDERED: Dexamethasone 4 MG TAB PO SCH (11:30)
[2020-10-09] MEDS ORDERED: valACYclovir 500 MG TAB PO SCH (11:30)
== END 2020-10-09 11:56 | disposition home or self-care (01) ==
LOC: ONC/OP 11:14
PROVIDERS: ATTEND Internal Medicine Hematology & Oncology
DX: Z51.11 Encounter for antineoplastic chemotherapy (principal); C90.00 Multiple myeloma not having achieved remission
CPT/HCPCS: 36415; 80053; 82248; 83615; 83883; 84100; 84165; 84550; 96401; J9041

== ENCOUNTER 2020-11-06 10:56 | Day surgery (SDC) | payer MEDICARE ==
[2020-11-06 11:28] VITALS: BP 143/61
== END 2020-11-06 11:56 | disposition home or self-care (01) ==
LOC: ONC/OP 10:56
PROVIDERS: ATTEND Internal Medicine Hematology & Oncology
DX: Z51.11 Encounter for antineoplastic chemotherapy (principal); C90.00 Multiple myeloma not having achieved remission
CPT/HCPCS: 96401; J9041

== ENCOUNTER 2020-11-20 10:38 | Day surgery (SDC) | payer MEDICARE ==
[~2020-11-20 10:38] MED LIST changes: +Dexamethasone 4 MG TAB PO SCH; +valACYclovir 500 MG TAB PO SCH
[2020-11-20 11:46] VITALS: BP 135/67; TEMP 97.9
== END 2020-11-20 11:48 | disposition home or self-care (01) ==
LOC: ONC/OP 10:38
PROVIDERS: ATTEND Internal Medicine Hematology & Oncology
DX: Z51.11 Encounter for antineoplastic chemotherapy (principal); C90.00 Multiple myeloma not having achieved remission
CPT/HCPCS: 96401; J9041

== ENCOUNTER 2020-12-04 12:22 | Day surgery (SDC) | payer MEDICARE ==
[2020-12-04 13:44] VITALS: BP 136/65; TEMP 97.8
== END 2020-12-04 15:06 | disposition home or self-care (01) ==
LOC: ONC/OP 12:22
PROVIDERS: ATTEND Internal Medicine Hematology & Oncology
DX: Z51.11 Encounter for antineoplastic chemotherapy (principal); C90.00 Multiple myeloma not having achieved remission
CPT/HCPCS: 96401

== ENCOUNTER 2020-12-18 10:51 | Day surgery (SDC) | payer MEDICARE ==
[~2020-12-18 10:51] MED LIST changes: -Dexamethasone 4 MG TAB PO SCH; -valACYclovir 500 MG TAB PO SCH
[2020-12-18 11:15] VITALS: BP 126/59; TEMP 98
== END 2020-12-18 12:26 | disposition home or self-care (01) ==
LOC: ONC/OP 10:51
PROVIDERS: ATTEND Internal Medicine Hematology & Oncology
DX: Z51.11 Encounter for antineoplastic chemotherapy (principal); C90.00 Multiple myeloma not having achieved remission
CPT/HCPCS: 96401; J9041

== ENCOUNTER 2021-01-01 10:28 | Day surgery (SDC) | payer MEDICARE ==
[~2021-01-01 10:28] MED LIST changes: +ADMIXTURE FEE CHEMO SC SCH; -SODIUM CHLORIDE 0.9% SC SCH
[2021-01-01 11:19] VITALS: BP 126/71; TEMP 98
== END 2021-01-01 11:20 | disposition home or self-care (01) ==
LOC: ONC/OP 10:28
PROVIDERS: ATTEND Internal Medicine Hematology & Oncology
DX: Z51.11 Encounter for antineoplastic chemotherapy (principal); C90.00 Multiple myeloma not having achieved remission
CPT/HCPCS: 36415; 82565; 96401; J9041

== ENCOUNTER 2021-01-15 09:28 | Day surgery (SDC) | payer MEDICARE ==
[~2021-01-15 09:28] MED LIST changes: +Dexamethasone 4 MG TAB PO SCH; +Zoledronic Acid 4 MG in Sodium Chloride 0.9% 100 ML IVPB SCH; +valACYclovir 500 MG TAB PO SCH
[2021-01-15 11:57] VITALS: BP 123/58; TEMP 97.9
== END 2021-01-15 11:57 | disposition home or self-care (01) ==
LOC: ONC/OP 09:28
PROVIDERS: ATTEND Internal Medicine Hematology & Oncology
DX: Z51.11 Encounter for antineoplastic chemotherapy (principal); C90.00 Multiple myeloma not having achieved remission
CPT/HCPCS: 96401; J3489; J3490; J9041

== ENCOUNTER 2021-02-12 10:47 | Day surgery (SDC) | payer MEDICARE ==
[~2021-02-12 10:47] MED LIST changes: -Dexamethasone 4 MG TAB PO SCH; -Zoledronic Acid 4 MG in Sodium Chloride 0.9% 100 ML IVPB SCH; -valACYclovir 500 MG TAB PO SCH
[2021-02-12 11:15] VITALS: BP 141/74
== END 2021-02-12 11:18 | disposition home or self-care (01) ==
LOC: ONC/OP 10:47
PROVIDERS: ATTEND Internal Medicine Hematology & Oncology
DX: Z51.11 Encounter for antineoplastic chemotherapy (principal); C90.00 Multiple myeloma not having achieved remission
CPT/HCPCS: 96401; J9041

== ENCOUNTER 2021-02-26 10:33 | Day surgery (SDC) | payer MEDICARE ==
[~2021-02-26 10:33] MED LIST changes: +Dexamethasone 4 MG TAB PO SCH; +valACYclovir 500 MG TAB PO SCH
[2021-02-26 14:53] VITALS: BP 122/62; TEMP 98
== END 2021-02-26 17:33 | disposition home or self-care (01) ==
LOC: ONC/OP 10:33
PROVIDERS: ATTEND Internal Medicine Hematology & Oncology
DX: Z51.11 Encounter for antineoplastic chemotherapy (principal); C90.00 Multiple myeloma not having achieved remission
CPT/HCPCS: 96401; J9041

== ENCOUNTER 2021-03-26 10:53 | Day surgery (SDC) | payer MEDICARE ==
[2021-03-26 12:03] VITALS: BP 141/64; TEMP 98.4
== END 2021-03-26 12:03 | disposition home or self-care (01) ==
LOC: ONC/OP 10:53
PROVIDERS: ATTEND Internal Medicine Hematology & Oncology
DX: Z51.11 Encounter for antineoplastic chemotherapy (principal); C90.00 Multiple myeloma not having achieved remission
CPT/HCPCS: 96401; J9041

== ENCOUNTER 2021-04-09 11:07 | Day surgery (SDC) | payer MEDICARE ==
[~2021-04-09 11:07] MED LIST changes: -Dexamethasone 4 MG TAB PO SCH; +Zoledronic Acid 4 MG in Sodium Chloride 0.9% 100 ML IVPB SCH; -valACYclovir 500 MG TAB PO SCH
[2021-04-09] MEDS ORDERED: Sodium Chloride 0.9% 10 ML ONE ×2 (11:18)
[2021-04-09 11:56] VITALS: BP 123/67; TEMP 98.3
== END 2021-04-09 12:33 | disposition home or self-care (01) ==
LOC: ONC/OP 11:07
PROVIDERS: ATTEND Internal Medicine Hematology & Oncology
DX: Z51.11 Encounter for antineoplastic chemotherapy (principal); C90.00 Multiple myeloma not having achieved remission
CPT/HCPCS: 96367; 96401; J3489; J3490; J9041

== ENCOUNTER 2021-04-23 10:56 | Day surgery (SDC) | payer MEDICARE ==
[~2021-04-23 10:56] MED LIST changes: +Dexamethasone 4 MG TAB PO SCH; -Zoledronic Acid 4 MG in Sodium Chloride 0.9% 100 ML IVPB SCH; +valACYclovir 500 MG TAB PO SCH
[2021-04-23 11:20] VITALS: BP 118/57; TEMP 98.2
== END 2021-04-23 11:36 | disposition home or self-care (01) ==
LOC: ONC/OP 10:56
PROVIDERS: ATTEND Internal Medicine Hematology & Oncology
DX: Z51.11 Encounter for antineoplastic chemotherapy (principal); C90.00 Multiple myeloma not having achieved remission
CPT/HCPCS: 96401; J9041

== ENCOUNTER 2021-05-07 09:57 | Day surgery (SDC) | payer MEDICARE ==
[2021-05-07 11:05] VITALS: BP 122/61; TEMP 98.4
== END 2021-05-07 11:04 | disposition home or self-care (01) ==
LOC: ONC/OP 09:57
PROVIDERS: ATTEND Internal Medicine Hematology & Oncology
DX: Z51.11 Encounter for antineoplastic chemotherapy (principal); C90.00 Multiple myeloma not having achieved remission
CPT/HCPCS: 96401; J9041

== ENCOUNTER 2021-06-04 10:58 | Day surgery (SDC) | payer MEDICARE ==
[2021-06-04 11:20] VITALS: BP 124/61; TEMP 97.7
== END 2021-06-04 11:31 | disposition home or self-care (01) ==
LOC: ONC/OP 10:58
PROVIDERS: ATTEND Internal Medicine Hematology & Oncology
DX: Z51.11 Encounter for antineoplastic chemotherapy (principal); C90.00 Multiple myeloma not having achieved remission
CPT/HCPCS: 96401; J9041

== ENCOUNTER 2021-06-18 11:20 | Day surgery (SDC) | payer MEDICARE ==
[2021-06-18 11:33] VITALS: BP 136/68; TEMP 97.7
== END 2021-06-18 11:46 | disposition home or self-care (01) ==
LOC: ONC/OP 11:20
PROVIDERS: ATTEND Internal Medicine Hematology & Oncology
DX: Z51.11 Encounter for antineoplastic chemotherapy (principal); C90.00 Multiple myeloma not having achieved remission
CPT/HCPCS: 96401; J9041

== ENCOUNTER 2021-07-02 10:39 | Day surgery (SDC) | payer MEDICARE ==
[~2021-07-02 10:39] MED LIST changes: -ADMIXTURE FEE CHEMO SC SCH; +SODIUM CHLORIDE 0.9% SC SCH; -valACYclovir 500 MG TAB PO SCH
[2021-07-02 11:14] VITALS: BP 104/59; TEMP 98.1
== END 2021-07-02 11:18 | disposition home or self-care (01) ==
LOC: ONC/OP 10:39
PROVIDERS: ATTEND Internal Medicine Hematology & Oncology
DX: Z51.11 Encounter for antineoplastic chemotherapy (principal)
CPT/HCPCS: 96401; J9041

== ENCOUNTER 2021-07-16 10:13 | Day surgery (SDC) | payer MEDICARE ==
[~2021-07-16 10:13] MED LIST changes: -BORTEZOMIB SC SCH; -Dexamethasone 4 MG TAB PO SCH; -SODIUM CHLORIDE 0.9% SC SCH; +valACYclovir 500 MG TAB PO SCH
[2021-07-16] MEDS ORDERED: Zoledronic Acid 4 MG in Sodium Chloride 0.9% 100 ML IVPB SCH (10:15)
[2021-07-16] MEDS ORDERED: ADMIXTURE FEE CHEMO SC SCH (10:15)
[2021-07-16] MEDS ORDERED: Dexamethasone 4 MG TAB PO SCH (10:15)
[2021-07-16] MEDS ORDERED: BORTEZOMIB SC SCH (10:15)
[2021-07-16 11:01] VITALS: BP 126/58; TEMP 98.3
== END 2021-07-16 11:02 | disposition home or self-care (01) ==
LOC: ONC/OP 10:13
PROVIDERS: ATTEND Internal Medicine Hematology & Oncology
DX: Z51.11 Encounter for antineoplastic chemotherapy (principal); C90.00 Multiple myeloma not having achieved remission
CPT/HCPCS: 36415; 80053; 82248; 83615; 83883; 84100; 84165; 84550; 96374; 96401; J3489; J3490; J9041

== ENCOUNTER → 2021-07-30 | Day surgery (SDC) | payer MEDICARE ==
[~2021-07-30] MED LIST changes: +ADMIXTURE FEE CHEMO SC SCH; +BORTEZOMIB SC SCH; +Dexamethasone 4 MG TAB PO SCH
[2021-07-30 11:03] VITALS: BP 100/57; TEMP 98
== END ==
LOC: ONC/OP 10:40
PROVIDERS: ATTEND Internal Medicine Hematology & Oncology
DX: Z51.11 Encounter for antineoplastic chemotherapy (principal); C90.00 Multiple myeloma not having achieved remission
CPT/HCPCS: 96401; J9041

== ENCOUNTER 2021-08-13 10:57 | Day surgery (SDC) | payer MEDICARE ==
[2021-08-13 11:14] VITALS: BP 105/60; TEMP 98.1
[2021-08-13] MEDS ORDERED: BORTEZOMIB SC SCH (12:15)
[2021-08-13] MEDS ORDERED: ADMIXTURE FEE CHEMO SC SCH (12:15)
== END 2021-08-13 12:50 | disposition home or self-care (01) ==
LOC: ONC/OP 10:57
PROVIDERS: ATTEND Internal Medicine Hematology & Oncology
DX: Z51.11 Encounter for antineoplastic chemotherapy (principal); C90.00 Multiple myeloma not having achieved remission
CPT/HCPCS: 96401

== ENCOUNTER 2021-08-27 10:18 | Day surgery (SDC) | payer MEDICARE ==
[2021-08-27 10:35] VITALS: BP 113/63
== END 2021-08-27 11:45 | disposition home or self-care (01) ==
LOC: ONC/OP 10:18
PROVIDERS: ATTEND Internal Medicine Hematology & Oncology
DX: Z51.11 Encounter for antineoplastic chemotherapy (principal); C90.00 Multiple myeloma not having achieved remission; Z86.711 Personal history of pulmonary embolism
CPT/HCPCS: 96401

== ENCOUNTER 2021-09-24 11:02 | Day surgery (SDC) | payer MEDICARE ==
[2021-09-24] MEDS ORDERED: SODIUM CHLORIDE 0.9% SC SCH (12:00)
[2021-09-24] MEDS ORDERED: BORTEZOMIB SC SCH (12:00)
[2021-09-24 13:15] VITALS: BP 111/69; TEMP 98.4
== END 2021-09-24 13:16 | disposition home or self-care (01) ==
LOC: ONC/OP 11:02
PROVIDERS: ATTEND Internal Medicine Hematology & Oncology
DX: Z51.11 Encounter for antineoplastic chemotherapy (principal); C90.00 Multiple myeloma not having achieved remission; Z86.711 Personal history of pulmonary embolism
CPT/HCPCS: 36415; 82565; 96401; J9041

== ENCOUNTER 2021-10-08 09:59 | Day surgery (SDC) | payer MEDICARE ==
[~2021-10-08 09:59] MED LIST changes: +ADMIXTURE FEE SC SCH; -Dexamethasone 4 MG TAB PO SCH; +Zoledronic Acid 4 MG in Sodium Chloride 0.9% 100 ML IVPB SCH; -valACYclovir 500 MG TAB PO SCH
[2021-10-08 12:01] VITALS: BP 115/69; TEMP 97.8
== END 2021-10-08 12:01 | disposition home or self-care (01) ==
LOC: ONC/OP 09:59
PROVIDERS: ATTEND Internal Medicine Hematology & Oncology
DX: Z51.11 Encounter for antineoplastic chemotherapy (principal); C90.00 Multiple myeloma not having achieved remission; Z86.711 Personal history of pulmonary embolism
CPT/HCPCS: 96365; 96401; J3489; J3490; J9041

== ENCOUNTER 2021-10-22 08:25 | Day surgery (SDC) | payer MEDICARE ==
[2021-10-22] MEDS ORDERED: ADMIXTURE FEE CHEMO SC SCH (08:45)
[2021-10-22] MEDS ORDERED: BORTEZOMIB SC SCH (08:45)
[2021-10-22 11:02] VITALS: BP 114/58; TEMP 97.5
== END 2021-10-22 11:13 | disposition home or self-care (01) ==
LOC: ONC/OP 08:25
PROVIDERS: ATTEND Internal Medicine Hematology & Oncology
DX: Z51.11 Encounter for antineoplastic chemotherapy (principal); C90.00 Multiple myeloma not having achieved remission; Z86.711 Personal history of pulmonary embolism
CPT/HCPCS: 80053; 82248; 83615; 84100; 84155; 84165; 84550; 96401; J9041

== ENCOUNTER 2021-11-19 10:26 | Day surgery (SDC) | payer MEDICARE ==
[~2021-11-19 10:26] MED LIST changes: -ADMIXTURE FEE CHEMO SC SCH; -ADMIXTURE FEE SC SCH; -BORTEZOMIB SC SCH; +Dexamethasone 4 MG TAB PO SCH; -Zoledronic Acid 4 MG in Sodium Chloride 0.9% 100 ML IVPB SCH
[2021-11-19] MEDS ORDERED: ADMIXTURE FEE SC SCH (10:30)
[2021-11-19] MEDS ORDERED: BORTEZOMIB SC SCH ×2 (10:30→10:45)
[2021-11-19] MEDS ORDERED: SODIUM CHLORIDE 0.9% SC SCH (10:45)
[2021-11-19] MEDS ORDERED: ADMIXTURE FEE CHEMO SC SCH (10:45)
[2021-11-19 11:17] VITALS: BP 127/72; TEMP 97.4
[2021-11-19] MEDS ORDERED: SODIUM CHLORIDE 0.9% FS SCH (12:00)
[2021-11-19] MEDS ORDERED: BORTEZOMIB FS SCH (12:00)
== END 2021-11-19 11:33 | disposition home or self-care (01) ==
LOC: ONC/OP 10:26
PROVIDERS: ATTEND Internal Medicine Hematology & Oncology
DX: Z51.11 Encounter for antineoplastic chemotherapy (principal); C90.00 Multiple myeloma not having achieved remission; Z86.711 Personal history of pulmonary embolism
CPT/HCPCS: 96401; J9041

== ENCOUNTER 2021-12-03 09:56 | Day surgery (SDC) | payer MEDICARE ==
[2021-12-03] MEDS ORDERED: SODIUM CHLORIDE 0.9% SC SCH (11:00)
[2021-12-03] MEDS ORDERED: BORTEZOMIB SC SCH (11:00)
[2021-12-03 11:06] VITALS: BP 130/75; TEMP 97.9
== END 2021-12-03 11:05 | disposition home or self-care (01) ==
LOC: ONC/OP 09:56
PROVIDERS: ATTEND Internal Medicine Hematology & Oncology
DX: Z51.11 Encounter for antineoplastic chemotherapy (principal); C90.00 Multiple myeloma not having achieved remission; Z86.711 Personal history of pulmonary embolism
CPT/HCPCS: 96401; J9041

== ENCOUNTER 2021-12-17 10:51 | Day surgery (SDC) | payer MEDICARE ==
[2021-12-17] MEDS ORDERED: BORTEZOMIB SC SCH (11:15)
[2021-12-17] MEDS ORDERED: SODIUM CHLORIDE 0.9% SC SCH (11:15)
[2021-12-17 13:22] VITALS: BP 124/68; TEMP 98.4
== END 2021-12-17 13:23 | disposition home or self-care (01) ==
LOC: ONC/OP 10:51
PROVIDERS: ATTEND Internal Medicine Hematology & Oncology
DX: Z51.11 Encounter for antineoplastic chemotherapy (principal); C90.00 Multiple myeloma not having achieved remission; Z86.711 Personal history of pulmonary embolism
CPT/HCPCS: 96401; J9041

== ENCOUNTER 2022-01-05 15:20 | Inpatient (IN) | payer MEDICARE ==
[~2022-01-05 15:20] MED LIST changes: -Dexamethasone 4 MG TAB PO SCH; +Magnevist 469MG/ML 20 ML VIAL ONE
[2022-01-05 16:04] LABS: #Eosinphils 0.1 thou/uL (0.0-0.7); #Lymphocytes 1.7 thou/uL (1.20-3.40); #Monocytes 0.9 thou/uL (0.11-0.59); #Neutrophils 5.1 thou/uL (1.40-6.50); %Basophils 0.4 % (0.0-1.0); %Lymphocytes 21.6 % (21.0-51.0); %Monocytes 11.7 % (0.0-10.0); %Neutrophils 65.3 % (42.0-75.0); Hemoglobin 13.3 g/dL (12.0-16.0); Mean Corpuscular HGB CONC 33.8 g/dL (32.0-36.0); Mean Corpuscular Hemoglobin 37.6 pg (27.0-31.0); Mean Platelet Volume 7.5 fL (7.4-10.4); Platelet Count 148 thou/uL (130-400); RBC Distribution Width 13.5 % (11.5-14.5); Red Blood Cell (RBC) Count 3.53 mill/uL (4.20-5.40); White Blood Cell (WBC) Count 7.8 thou/uL (4.8-10.8)
[2022-01-05 16:24] LABS: ALT (SGPT) 16 U/L (8-55); AST (SGOT) 10 U/L (5-34); Albumin 3.9 g/dL (3.4-4.8); Alkaline Phosphatase 55 U/L (40-110); Anion Gap 18 mmol/L (10-20); BUN (Urea Nitrogen) 16 mg/dL (9.8-20.1); Bilirubin, Total 0.4 mg/dL (0.2-1.2); CK (CPK) 15 U/L (29-168); Calc. Creatinine Clearance 0 mL/min (70-130); Calcium 9.4 mg/dL (7.8-10.44); Carbon Dioxide 18 mmol/L (23-31); Chloride 111 mmol/L (98-107); Estimated GFR 83; Globulin 1.8 g/dL (2.4-3.5); Glucose 101 mg/dL (80-115); Lipase 16 U/L (8-78); Potassium 3.5 mmol/L (3.5-5.1); Protein, Total 5.7 g/dL (5.8-8.1); Sodium 143 mmol/L (136-145)
[2022-01-05 16:26] LABS: Bilirubin Negative (Negative); Blood, Urine Negative (Negative); Glucose, Urine (Dipstick) Normal (Negative); Ketone, Urine Negative (Negative); Leukocyte 75 Leu/uL (Negative); Nitrite Negative (Negative); Protein, Urine (Dipstick) 70 mg/dL (Neg-Trace); Specific Gravity, Urine 1.024 (1.002-1.036); WBC/HPF Greater than 50 HPF (0-3)
[2022-01-05 16:27] LABS: Bacteria/HPF 1+ HPF (None Seen); Clarity Cloudy (Clear)
[2022-01-05 16:31] LABS: SARS-CoV-2 NAA Rapid Test Not Detected (NotDetected)
[2022-01-05] MEDS ORDERED: cefTRIAXone\\ROCEPHIN 2 GM VIAL ONE (17:08)
[2022-01-05] MEDS ORDERED: Vancomycin 1 GM/200 ML BAG ONE (17:41)
[2022-01-05] MEDS ORDERED: Acetaminophen 325 MG TAB PO PRN (17:59)
[2022-01-05 18:52] VITALS: BMI 32.5
[2022-01-05 19:29] LABS: Hemoglobin A1c 4.8 % (4.0-6.0)
[2022-01-05 19:35] LABS: Lactic Acid 2.9 mmol/L (0.5-2.2)
[2022-01-05 19:38] LABS: Magnesium 1.8 mg/dL (1.6-2.6); Phosphorus 3.3 mg/dL (2.3-4.7)
[2022-01-05 19:42] LABS: Troponin I Less than 0.010 ng/mL (< 0.028)
[2022-01-05] MEDS: Apixaban 5 MG TAB PO SCH (20:41)
[2022-01-05 23:30] LABS: Troponin I 0.015 ng/mL (< 0.028)
[2022-01-06 04:26] LABS: ALT (SGPT) 14 U/L (8-55); AST (SGOT) 9 U/L (5-34); Albumin 3.5 g/dL (3.4-4.8); Alkaline Phosphatase 48 U/L (40-110); Anion Gap 12 mmol/L (10-20); BUN (Urea Nitrogen) 13 mg/dL (9.8-20.1); Bilirubin, Total 0.6 mg/dL (0.2-1.2); Calc. Creatinine Clearance 118 mL/min (70-130); Calcium 8.8 mg/dL (7.8-10.44); Carbon Dioxide 22 mmol/L (23-31); Chloride 112 mmol/L (98-107); Estimated GFR 95; Globulin 1.9 g/dL (2.4-3.5); Glucose 95 mg/dL (80-115); Magnesium 1.8 mg/dL (1.6-2.6); Protein, Total 5.4 g/dL (5.8-8.1); Sodium 142 mmol/L (136-145)
[2022-01-06 04:32] LABS: Lactic Acid 1.4 mmol/L (0.5-2.2)
[2022-01-06 04:33] LABS: Phosphorus 2.9 mg/dL (2.3-4.7)
[2022-01-06 04:46] LABS: #Eosinphils 0.1 thou/uL (0.0-0.7); #Lymphocytes 1.2 thou/uL (1.20-3.40); #Monocytes 0.9 thou/uL (0.11-0.59); #Neutrophils 5.2 thou/uL (1.40-6.50); %Eosinophils 1.1 % (0.0-10.0); %Lymphocytes 15.7 % (21.0-51.0); %Monocytes 12.4 % (0.0-10.0); %Neutrophils 70.9 % (42.0-75.0); Hemoglobin 12.1 g/dL (12.0-16.0); Mean Corpuscular HGB CONC 32.8 g/dL (32.0-36.0); Mean Corpuscular Hemoglobin 37.1 pg (27.0-31.0); Mean Platelet Volume 8.1 fL (7.4-10.4); Platelet Count 135 thou/uL (130-400); RBC Distribution Width 13.8 % (11.5-14.5); Red Blood Cell (RBC) Count 3.27 mill/uL (4.20-5.40); White Blood Cell (WBC) Count 7.4 thou/uL (4.8-10.8)
[2022-01-06] MEDS: Apixaban 5 MG TAB PO SCH ×2 (09:29→21:06)
[2022-01-06] MEDS: Atorvastatin Calcium 40 MG TAB PO SCH (09:30)
[2022-01-06] MEDS: cefTRIAXone\\ROCEPHIN 2 GM in Sodium Chloride 0.9% 100 ML IVPB SCH (17:43)
[2022-01-06] MEDS: Simvastatin 10 MG TAB PO SCH (21:06)
[2022-01-07 05:13] LABS: ALT (SGPT) 13 U/L (8-55); AST (SGOT) 12 U/L (5-34); Albumin 3.3 g/dL (3.4-4.8); Alkaline Phosphatase 52 U/L (40-110); Anion Gap 12 mmol/L (10-20); BUN (Urea Nitrogen) 15 mg/dL (9.8-20.1); Bilirubin, Total 0.3 mg/dL (0.2-1.2); Calc. Creatinine Clearance 113 mL/min (70-130); Calcium 9.4 mg/dL (7.8-10.44); Carbon Dioxide 19 mmol/L (23-31); Chloride 112 mmol/L (98-107); Estimated GFR 93; Glucose 89 mg/dL (80-115); Magnesium 1.7 mg/dL (1.6-2.6); Phosphorus 3.3 mg/dL (2.3-4.7); Potassium 3.7 mmol/L (3.5-5.1); Protein, Total 5.3 g/dL (5.8-8.1); Sodium 139 mmol/L (136-145)
[2022-01-07 05:16] LABS: Troponin I Less than 0.010 ng/mL (< 0.028)
[2022-01-07 06:32] LABS: Band 2 % (5-11); Eosinophils 1 % (0-10); Hemoglobin 11.1 g/dL (12.0-16.0); Lymphocytes 17 % (21-51); MDiff Complete? YES; Macrocytosis MODERATE=16-30 cells (100X) (0-5/hpf); Mean Corpuscular HGB CONC 31.6 g/dL (32.0-36.0); Mean Corpuscular Hemoglobin 35.5 pg (27.0-31.0); Mean Platelet Volume 8.5 fL (7.4-10.4); Monocytes 11 % (0-10); Neutrophil 69 % (42-75); Ovalocytes SLIGHT = 2-5 cells (100X) (0-1/hpf); Platelet Count 128 thou/uL (130-400); Platelet Morphology Comment Appears Decreased; RBC Distribution Width 13.8 % (11.5-14.5); Red Blood Cell (RBC) Count 3.12 mill/uL (4.20-5.40); White Blood Cell (WBC) Count 6.6 thou/uL (4.8-10.8)
[2022-01-07] MEDS ORDERED: Sodium Chloride 0.9% 1,000 ML IV SCH (08:00)
[2022-01-07] MEDS ORDERED: Dexamethasone 4 MG TAB PO SCH ×2 (09:30→12:00)
[2022-01-07] MEDS: Apixaban 5 MG TAB PO SCH ×2 (09:32→21:05)
[2022-01-07] MEDS: Atorvastatin Calcium 40 MG TAB PO SCH (09:32)
[2022-01-07] MEDS: cefTRIAXone\\ROCEPHIN 2 GM in Sodium Chloride 0.9% 100 ML IVPB SCH (18:27)
[2022-01-07] MEDS: Simvastatin 10 MG TAB PO SCH (21:05)
[2022-01-08 04:51] LABS: #Lymphocytes 0.9 thou/uL (1.20-3.40); #Monocytes 0.1 thou/uL (0.11-0.59); #Neutrophils 5.6 thou/uL (1.40-6.50); %Basophils 0.6 % (0.0-1.0); %Eosinophils 0.2 % (0.0-10.0); %Lymphocytes 13.6 % (21.0-51.0); %Monocytes 1.7 % (0.0-10.0); Hemoglobin 12.3 g/dL (12.0-16.0); Mean Corpuscular HGB CONC 32.1 g/dL (32.0-36.0); Mean Corpuscular Hemoglobin 35.7 pg (27.0-31.0); Mean Platelet Volume 8.5 fL (7.4-10.4); Platelet Count 150 thou/uL (130-400); RBC Distribution Width 13.6 % (11.5-14.5); Red Blood Cell (RBC) Count 3.43 mill/uL (4.20-5.40); White Blood Cell (WBC) Count 6.6 thou/uL (4.8-10.8)
[2022-01-08 05:14] LABS: ALT (SGPT) 16 U/L (8-55); AST (SGOT) 11 U/L (5-34); Albumin 3.8 g/dL (3.4-4.8); Alkaline Phosphatase 54 U/L (40-110); Anion Gap 11 mmol/L (10-20); BUN (Urea Nitrogen) 14 mg/dL (9.8-20.1); Bilirubin, Total 0.4 mg/dL (0.2-1.2); Calc. Creatinine Clearance 111 mL/min (70-130); Calcium 9.7 mg/dL (7.8-10.44); Carbon Dioxide 21 mmol/L (23-31); Chloride 110 mmol/L (98-107); Estimated GFR 91; Globulin 2.2 g/dL (2.4-3.5); Glucose 137 mg/dL (80-115); Potassium 4.2 mmol/L (3.5-5.1); Sodium 138 mmol/L (136-145)
[2022-01-08] MEDS ORDERED: FLU VACC QS2022-23(65YR UP)/PF 240 MCG/0.7 ML SYRINGE IM ONE (09:00)
[2022-01-08] MEDS: Atorvastatin Calcium 40 MG TAB PO SCH ×2 (09:30→20:53)
[2022-01-08] MEDS: Folic Acid 1 MG TAB PO SCH (09:30)
[2022-01-08] MEDS: Saccharomyces boulardii 250 MG CAP PO SCH (09:30)
[2022-01-08] MEDS: Cyanocobalamin (Vitamin B-12) 1,000 MCG TAB PO SCH (09:30)
[2022-01-08] MEDS: Apixaban 5 MG TAB PO SCH ×2 (09:30→20:53)
[2022-01-08] MEDS: cefTRIAXone\\ROCEPHIN 2 GM in Sodium Chloride 0.9% 100 ML IVPB SCH (17:35)
[2022-01-09 05:19] LABS: #Lymphocytes 1.1 thou/uL (1.20-3.40); #Monocytes 1.4 thou/uL (0.11-0.59); #Neutrophils 11.8 thou/uL (1.40-6.50); %Basophils 0.1 % (0.0-1.0); %Eosinophils 0.2 % (0.0-10.0); %Lymphocytes 7.5 % (21.0-51.0); %Monocytes 9.7 % (0.0-10.0); %Neutrophils 82.6 % (42.0-75.0); Hemoglobin 11.6 g/dL (12.0-16.0); Mean Corpuscular HGB CONC 34.5 g/dL (32.0-36.0); Mean Corpuscular Hemoglobin 38.5 pg (27.0-31.0); Mean Platelet Volume 8.5 fL (7.4-10.4); Platelet Count 156 thou/uL (130-400); RBC Distribution Width 13.9 % (11.5-14.5); Red Blood Cell (RBC) Count 3.02 mill/uL (4.20-5.40); White Blood Cell (WBC) Count 14.3 thou/uL (4.8-10.8)
[2022-01-09 05:29] LABS: ALT (SGPT) 16 U/L (8-55); AST (SGOT) 12 U/L (5-34); Albumin 3.4 g/dL (3.4-4.8); Alkaline Phosphatase 44 U/L (40-110); Anion Gap 13 mmol/L (10-20); BUN (Urea Nitrogen) 19 mg/dL (9.8-20.1); Bilirubin, Total 0.5 mg/dL (0.2-1.2); Calc. Creatinine Clearance 111 mL/min (70-130); Calcium 9.9 mg/dL (7.8-10.44); Carbon Dioxide 21 mmol/L (23-31); Chloride 111 mmol/L (98-107); Estimated GFR 91; Glucose 99 mg/dL (80-115); Magnesium 1.8 mg/dL (1.6-2.6); Phosphorus 3.1 mg/dL (2.3-4.7); Potassium 3.9 mmol/L (3.5-5.1); Protein, Total 5.4 g/dL (5.8-8.1); Sodium 141 mmol/L (136-145)
[2022-01-09] MEDS: Lisinopril 20 MG TAB PO SCH (09:27)
[2022-01-09] MEDS: Saccharomyces boulardii 250 MG CAP PO SCH (09:28)
[2022-01-09] MEDS: Folic Acid 1 MG TAB PO SCH (09:28)
[2022-01-09] MEDS: Cyanocobalamin (Vitamin B-12) 1,000 MCG TAB PO SCH (09:28)
[2022-01-09] MEDS: Apixaban 5 MG TAB PO SCH ×2 (09:28→20:09)
[2022-01-09] MEDS: Atorvastatin Calcium 40 MG TAB PO SCH (20:10)
[2022-01-10 04:53] LABS: #Eosinphils 0.1 thou/uL (0.0-0.7); #Lymphocytes 1.3 thou/uL (1.20-3.40); #Monocytes 1.4 thou/uL (0.11-0.59); #Neutrophils 6.6 thou/uL (1.40-6.50); %Basophils 0.1 % (0.0-1.0); %Eosinophils 0.9 % (0.0-10.0); %Lymphocytes 13.5 % (21.0-51.0); %Monocytes 14.6 % (0.0-10.0); Hemoglobin 11.5 g/dL (12.0-16.0); Mean Corpuscular HGB CONC 32.3 g/dL (32.0-36.0); Mean Platelet Volume 8.4 fL (7.4-10.4); Platelet Count 162 thou/uL (130-400); RBC Distribution Width 13.8 % (11.5-14.5); Red Blood Cell (RBC) Count 3.11 mill/uL (4.20-5.40); White Blood Cell (WBC) Count 9.3 thou/uL (4.8-10.8)
[2022-01-10 05:05] LABS: ALT (SGPT) 29 U/L (8-55); AST (SGOT) 22 U/L (5-34); Albumin 3.4 g/dL (3.4-4.8); Alkaline Phosphatase 45 U/L (40-110); Anion Gap 12 mmol/L (10-20); BUN (Urea Nitrogen) 19 mg/dL (9.8-20.1); Bilirubin, Total 0.4 mg/dL (0.2-1.2); Calc. Creatinine Clearance 106 mL/min (70-130); Calcium 9.3 mg/dL (7.8-10.44); Carbon Dioxide 23 mmol/L (23-31); Chloride 110 mmol/L (98-107); Estimated GFR 88; Globulin 1.7 g/dL (2.4-3.5); Glucose 89 mg/dL (80-115); Potassium 3.7 mmol/L (3.5-5.1); Protein, Total 5.1 g/dL (5.8-8.1); Sodium 141 mmol/L (136-145)
[2022-01-10] MEDS: Apixaban 5 MG TAB PO SCH (09:12)
[2022-01-10] MEDS: Cyanocobalamin (Vitamin B-12) 1,000 MCG TAB PO SCH (09:12)
[2022-01-10] MEDS: Lisinopril 20 MG TAB PO SCH (09:12)
[2022-01-10] MEDS: Folic Acid 1 MG TAB PO SCH (09:12)
[2022-01-10] MEDS: Saccharomyces boulardii 250 MG CAP PO SCH (09:12)
[2022-01-10 16:05] VITALS: BP 126/66; TEMP 97.7
== END 2022-01-10 17:26 | disposition home or self-care (01) | DRG 872 ==
LOC: ERS 15:20 → 2NO 17:26
PROVIDERS: ADMIT Family Medicine; ATTEND Internal Medicine
DX: A41.9 Sepsis, unspecified organism (principal); I50.32 Chronic diastolic (congestive) heart failure; N39.0 Urinary tract infection, site not specified; C90.00 Multiple myeloma not having achieved remission; I47.20 Ventricular tachycardia, unspecified; Z20.822 Contact with and (suspected) exposure to COVID-19; I95.1 Orthostatic hypotension; E11.9 Type 2 diabetes mellitus without complications; E78.00 Pure hypercholesterolemia, unspecified; F17.210 Nicotine dependence, cigarettes, uncomplicated; I11.0 Hypertensive heart disease with heart failure; Z86.711 Personal history of pulmonary embolism; Z79.01 Long term (current) use of anticoagulants; Z86.73 Personal history of transient ischemic attack (TIA), and cerebral infarction without residual deficits; Z79.82 Long term (current) use of aspirin; Z79.899 Other long term (current) drug therapy
CPT/HCPCS: 36415; 51701; 70450; 70553; 71045; 80053; 81003; 81015; 82550; 82607; 83036; 83605; 83690; 83735; 83880; 84100; 84145; 84443; 84484; 85025; 87040; 87086; 93005; 93306; 93880; 95816; 95819; 95957; 96360; 96361; 96365; 96367; A9579; J0696; J3370; J3490; J7050; J8540

== ENCOUNTER 2022-01-14 10:28 | Day surgery (SDC) | payer MEDICARE ==
[~2022-01-14 10:28] MED LIST changes: +BORTEZOMIB SC SCH; -Magnevist 469MG/ML 20 ML VIAL ONE; +SODIUM CHLORIDE 0.9% SC SCH
[2022-01-14 11:05] VITALS: BP 129/62; TEMP 98.2
== END 2022-01-14 13:02 | disposition home or self-care (01) ==
LOC: ONC/OP 10:28
PROVIDERS: ATTEND Internal Medicine Hematology & Oncology
DX: Z51.11 Encounter for antineoplastic chemotherapy (principal); C90.00 Multiple myeloma not having achieved remission; Z86.711 Personal history of pulmonary embolism
CPT/HCPCS: 96401; J9044

== ENCOUNTER 2022-01-28 09:54 | Day surgery (SDC) | payer MEDICARE ==
[2022-01-28] MEDS ORDERED: SODIUM CHLORIDE 0.9% SC SCH (10:15)
[2022-01-28] MEDS ORDERED: BORTEZOMIB SC SCH (10:15)
[2022-01-28 13:32] VITALS: BP 163/90; TEMP 98.3
== END 2022-01-28 13:36 | disposition home or self-care (01) ==
LOC: ONC/OP 09:54
PROVIDERS: ATTEND Internal Medicine Hematology & Oncology
DX: Z51.11 Encounter for antineoplastic chemotherapy (principal); C90.00 Multiple myeloma not having achieved remission; Z86.711 Personal history of pulmonary embolism
CPT/HCPCS: 96401; J9044

== ENCOUNTER 2022-02-11 10:39 | Day surgery (SDC) | payer MEDICARE ==
[2022-02-11 11:08] VITALS: BP 158/100; TEMP 98.3
== END 2022-02-11 11:49 | disposition home or self-care (01) ==
LOC: ONC/OP 10:39
PROVIDERS: ATTEND Internal Medicine Hematology & Oncology
DX: Z51.11 Encounter for antineoplastic chemotherapy (principal); C90.00 Multiple myeloma not having achieved remission; Z86.711 Personal history of pulmonary embolism
CPT/HCPCS: 96401; J9044

== ENCOUNTER 2022-03-25 10:02 | Day surgery (SDC) | payer MEDICARE ==
[~2022-03-25 10:02] MED LIST changes: +ADMIXTURE FEE CHEMO SC SCH; -SODIUM CHLORIDE 0.9% SC SCH; +Zoledronic Acid 4 MG in Sodium Chloride 0.9% 100 ML IVPB SCH
[2022-03-25 11:33] VITALS: BP 156/82; TEMP 98.7
== END 2022-03-25 11:36 | disposition home or self-care (01) ==
LOC: ONC/OP 10:02
PROVIDERS: ATTEND Internal Medicine Hematology & Oncology
DX: Z51.11 Encounter for antineoplastic chemotherapy (principal); C90.00 Multiple myeloma not having achieved remission; Z86.711 Personal history of pulmonary embolism
CPT/HCPCS: 96366; 96401; J3489; J3490; J9044

== ENCOUNTER 2022-04-08 10:17 | Day surgery (SDC) | payer MEDICARE ==
[~2022-04-08 10:17] MED LIST changes: +Dexamethasone 4 MG TAB PO SCH; -Zoledronic Acid 4 MG in Sodium Chloride 0.9% 100 ML IVPB SCH; +valACYclovir 500 MG TAB PO SCH
[2022-04-08 11:11] VITALS: BP 154/74; TEMP 98
== END 2022-04-08 11:13 | disposition home or self-care (01) ==
LOC: ONC/OP 10:17
PROVIDERS: ATTEND Internal Medicine Hematology & Oncology
DX: Z51.11 Encounter for antineoplastic chemotherapy (principal); C90.00 Multiple myeloma not having achieved remission; Z86.711 Personal history of pulmonary embolism
CPT/HCPCS: 96401; J9041

== ENCOUNTER 2022-04-22 10:48 | Day surgery (SDC) | payer MEDICARE ==
[~2022-04-22 10:48] MED LIST changes: -ADMIXTURE FEE CHEMO SC SCH; -BORTEZOMIB SC SCH
[2022-04-22] MEDS ORDERED: BORTEZOMIB SC SCH (11:00)
[2022-04-22] MEDS ORDERED: SODIUM CHLORIDE 0.9% SC SCH (11:00)
[2022-04-22 11:55] VITALS: BP 141/86; TEMP 97.5
== END 2022-04-22 11:57 | disposition home or self-care (01) ==
LOC: ONC/OP 10:48
PROVIDERS: ATTEND Internal Medicine Hematology & Oncology
DX: Z51.11 Encounter for antineoplastic chemotherapy (principal); C90.00 Multiple myeloma not having achieved remission; Z86.711 Personal history of pulmonary embolism
CPT/HCPCS: 96401; J9041

== ENCOUNTER 2022-05-06 10:30 | Day surgery (SDC) | payer MEDICARE ==
[~2022-05-06 10:30] MED LIST changes: +BORTEZOMIB SC SCH; -Dexamethasone 4 MG TAB PO SCH; +SODIUM CHLORIDE 0.9% SC SCH; -valACYclovir 500 MG TAB PO SCH
[2022-05-06 11:14] VITALS: BP 179/96; TEMP 98.1
== END 2022-05-06 11:17 | disposition home or self-care (01) ==
LOC: ONC/OP 10:30
PROVIDERS: ATTEND Internal Medicine Hematology & Oncology
DX: Z51.11 Encounter for antineoplastic chemotherapy (principal); C90.00 Multiple myeloma not having achieved remission; Z86.711 Personal history of pulmonary embolism
CPT/HCPCS: 96401; J9041

== ENCOUNTER → 2022-05-20 | Day surgery (SDC) | payer MEDICARE ==
[2022-05-20 10:57] VITALS: BP 184/92; TEMP 97.8
== END ==
LOC: ONC/OP 10:47
PROVIDERS: ATTEND Internal Medicine Hematology & Oncology
DX: Z51.11 Encounter for antineoplastic chemotherapy (principal); C90.00 Multiple myeloma not having achieved remission; I11.0 Hypertensive heart disease with heart failure; I50.30 Unspecified diastolic (congestive) heart failure; E78.5 Hyperlipidemia, unspecified; Z86.16 Personal history of COVID-19; Z86.711 Personal history of pulmonary embolism; Z79.01 Long term (current) use of anticoagulants; Z86.73 Personal history of transient ischemic attack (TIA), and cerebral infarction without residual deficits; Z87.891 Personal history of nicotine dependence
CPT/HCPCS: 96401; J9041

== ENCOUNTER 2022-06-16 10:14 | Day surgery (SDC) | payer MEDICARE ==
[~2022-06-16 10:14] MED LIST changes: +Zoledronic Acid 4 MG in Sodium Chloride 0.9% 100 ML IVPB SCH
[2022-06-16 10:51] VITALS: BP 171/85; TEMP 98
== END 2022-06-16 12:04 | disposition home or self-care (01) ==
LOC: ONC/OP 10:14
PROVIDERS: ATTEND Internal Medicine Hematology & Oncology
DX: Z51.11 Encounter for antineoplastic chemotherapy (principal); C90.00 Multiple myeloma not having achieved remission; Z86.711 Personal history of pulmonary embolism; Z79.83 Long term (current) use of bisphosphonates
CPT/HCPCS: 96367; 96401; J3489; J9041; J3490

== ENCOUNTER 2022-07-01 10:29 | Day surgery (SDC) | payer MEDICARE ==
[~2022-07-01 10:29] MED LIST changes: -Zoledronic Acid 4 MG in Sodium Chloride 0.9% 100 ML IVPB SCH
[2022-07-01 11:22] VITALS: BP 171/82; TEMP 98.3
== END 2022-07-01 11:23 | disposition home or self-care (01) ==
LOC: ONC/OP 10:29
PROVIDERS: ATTEND Internal Medicine Hematology & Oncology
DX: Z51.11 Encounter for antineoplastic chemotherapy (principal); C90.00 Multiple myeloma not having achieved remission; Z86.711 Personal history of pulmonary embolism
CPT/HCPCS: 96401; J9041

== ENCOUNTER 2022-07-15 10:19 | Day surgery (SDC) | payer MEDICARE ==
[~2022-07-15 10:19] MED LIST changes: -BORTEZOMIB SC SCH; +Dexamethasone 4 MG TAB PO SCH; -SODIUM CHLORIDE 0.9% SC SCH
[2022-07-15 11:06] VITALS: BP 165/83; TEMP 98.3
[2022-07-15] MEDS ORDERED: BORTEZOMIB SC SCH (12:00)
[2022-07-15] MEDS ORDERED: SODIUM CHLORIDE 0.9% SC SCH (12:00)
== END 2022-07-15 12:30 | disposition home or self-care (01) ==
LOC: ONC/OP 10:19
PROVIDERS: ATTEND Internal Medicine Hematology & Oncology
DX: Z51.11 Encounter for antineoplastic chemotherapy (principal); C90.00 Multiple myeloma not having achieved remission; Z86.711 Personal history of pulmonary embolism
CPT/HCPCS: 96401; J9041